=== PATIENT | male | born 1955 | race Caucasian/White ===

== ENCOUNTER 2017-08-08 12:28 | Emergency (ER) | payer MEDICARE, BC, OTHER ==
[2017-08-08 11:46] LABS: BASO # 0.1 10^3/uL (0.0-0.2); BASO % 0.9 % (0.0-1.0); EOS # 0.2 10^3/uL (0.0-0.50); EOS % 2.4 % (0.0-3.0); HEMATOCRIT 42.5 % (42.0-52.0); HEMOGLOBIN 14.8 g/dl (13.5-17.5); IMMATURE GRANULOCYTE % 0.4 % (0-3.0); LYMPH # 1.7 10^3/uL (1.5-4.5); MEAN CORPUSCULAR HEMOGLOBIN 32.3 pg (27.0-33.0); MEAN CORPUSCULAR HGB CONC 34.8 g/dl (32.0-36.5); MEAN CORPUSCULAR VOLUME 92.8 fl (80.0-96.0); MONO # 0.7 10^3/uL (0.0-0.8); MONO % 10.6 % (0.0-5.0); NEUTROPHILS # 4.3 10^3/uL (1.8-7.7); NEUTROPHILS % 61.7 % (36.0-66.0); PLATELET COUNT, AUTOMATED 180 10^3/uL (150-450); RED BLOOD COUNT 4.58 10^6/uL (4.30-6.10); RED CELL DISTRIBUTION WIDTH 12.9 % (11.5-14.5)
[2017-08-08] MEDS: LABETALOL HCL 100 MG/20 ML VIAL IV ×2 (11:55→12:20)
[2017-08-08 11:56] LABS: INR 0.93; PARTIAL THROMBOPLASTIN TIME 23.6 SECONDS (26.8-37.9); PROTHROMBIN TIME 12.6 SECONDS (12.4-14.5)
[2017-08-08 12:07] LABS: BEDSIDE GLUCOSE 122 MG/DL (80-115)
[2017-08-08 12:16] LABS: ANION GAP 6 MEQ/L (8-16); BLOOD UREA NITROGEN 9 MG/DL (7-18); CALCIUM LEVEL 9.3 MG/DL (8.8-10.2); CARBON DIOXIDE LEVEL 29 MEQ/L (21-32); CHLORIDE LEVEL 98 MEQ/L (98-107); CK-MB VALUE MASS 3.2 NG/ML (<3.6); CPK CREATINE PHOSPHOKINASE 55 U/L (39-308); CREATININE FOR GFR 0.75 MG/DL (0.70-1.30); GLOMERULAR FILTRATION RATE > 60.0 (>49); GLUCOSE, FASTING 103 MG/DL (70-100); MB/CK RELATIVE INDEX 5.81 (< OR =4); POTASSIUM SERUM 4.4 MEQ/L (3.5-5.1); SODIUM LEVEL 133 MEQ/L (136-145); TROPONIN I < 0.02 NG/ML (< 0.10)
[~2017-08-08 12:28] MED LIST: LABETALOL HCL 100 MG/20 ML VIAL As Ordered
[2017-08-08] MEDS: LORazepam 2 MG/ML VIAL (J2060) IV (13:10)
[2017-08-08] MEDS: ATENOLOL 50 MG TAB PO (14:34)
== END 2017-08-08 16:04 | disposition left against medical advice (07) ==
LOC: M ED 12:28
DX: G45.9 Transient cerebral ischemic attack, unspecified (principal); I16.0 Hypertensive urgency; Z86.73 Personal history of transient ischemic attack (TIA), and cerebral infarction without residual deficits; R94.31 Abnormal electrocardiogram [ECG] [EKG]; I25.10 Atherosclerotic heart disease of native coronary artery without angina pectoris; I25.2 Old myocardial infarction; I10 Essential (primary) hypertension; I73.9 Peripheral vascular disease, unspecified; E78.5 Hyperlipidemia, unspecified; F17.200 Nicotine dependence, unspecified, uncomplicated; Z79.82 Long term (current) use of aspirin; Z79.899 Other long term (current) drug therapy; Z79.01 Long term (current) use of anticoagulants; Z79.84 Long term (current) use of oral hypoglycemic drugs; Z95.5 Presence of coronary angioplasty implant and graft; Z98.890 Other specified postprocedural states; Z88.8 Allergy status to other drugs, medicaments and biological substances; Z88.5 Allergy status to narcotic agent
CPT/HCPCS: J2060

== ENCOUNTER → 2018-10-27 | Outpatient (CLI) | payer MEDICARE, BC, OTHER ==
[~2018-10-27] MED LIST changes: +ASCO500T PO; +ASPI-255 PO; +ASPI325T PO; +ASPI81TA85 PO; +ATEN100T PO; +BENA2CRE2 TOP; +CEPH2CAP PO; +CRES5TAB PO; +DOXA1TAB41 PO; +FIBE625T PO; +FISH1000 PO; +GLYB5TA PO; -LABETALOL HCL 100 MG/20 ML VIAL As Ordered; +LISI-538 PO; +LISI5TAB PO; +METF-877 PO; +METF500T13 PO; +NEUR300C PO; +NEUR600T PO; +NICO14DI20 TD; +NITR0.4D6 SL; +OMEP20CA4 PO; +OMEP40CA2 PO; +PLAV1TAB2 PO; +PROT1TAB2 PO; +RANI15TA PO; +RANI1TAB17 PO; +ULTR50TA PO; +ZETI10TA21 PO; +ZETI10TA30 PO
== END ==
LOC: M SMT 10:42
PROVIDERS: ATTEND Nurse Practitioner Women's Health
DX: Z12.5 Encounter for screening for malignant neoplasm of prostate (principal)
CPT/HCPCS: 36415; G0103

== ENCOUNTER 2018-12-04 12:59 | Observation (INO) | payer MEDICARE, BC, OTHER ==
[~2018-12-04] VITALS: Ht 180.3 cm; Wt 87.9 kg
[~2018-12-04 12:59] MED LIST changes: +ZETI10TA16 PO; -ZETI10TA30 PO
--- NOTE | 2018-12-04 13:34 | REP ---
CT BRAIN WITHOUT IV CONTRAST: CT brain performed without IV contrast. Comparison made with prior MRI and CT 08/08/2017. There is moderate atrophy. There is no midline shift of mass effect. Periventricular small vessel ischemic changes are again noted, chronic in nature. Old lacunar infarcts are seen in the basal ganglia, linn and left cerebellum. There is no acute intracranial hemorrhage or extra-axial fluid collection. Vascular calcifications are seen in the carotid siphons. IMPRESSION: Chronic small vessel ischemic changes and lacunar infarcts with no acute intracranial hemorrhage. Electronically Signed by Nino Rondon MD 12/06/2018 10:51 P
[2018-12-04 13:43] LABS: BASO # 0.1 10^3/uL (0.0-0.2); EOS # 0.2 10^3/uL (0.0-0.50); HEMATOCRIT 44.1 % (42.0-52.0); LYMPH # 1.6 10^3/uL (1.5-4.5); LYMPH % 22.7 % (24.0-44.0); MEAN CORPUSCULAR HEMOGLOBIN 32.5 pg (27.0-33.0); MEAN CORPUSCULAR VOLUME 95.5 fl (80.0-96.0); MONO # 0.8 10^3/uL (0.0-0.8); MONO % 10.5 % (0.0-5.0); NEUTROPHILS # 4.5 10^3/uL (1.8-7.7); NEUTROPHILS % 62.4 % (36.0-66.0); PLATELET COUNT, AUTOMATED 235 10^3/uL (150-450); RED BLOOD COUNT 4.62 10^6/uL (4.30-6.10); WHITE BLOOD COUNT 7.2 10^3/uL (4.0-10.0)
[2018-12-04 13:52] LABS: INR 0.94; PROTHROMBIN TIME 12.3 SECONDS (11.8-14.0)
[2018-12-04 13:53] LABS: PARTIAL THROMBOPLASTIN TIME 24.5 SECONDS (25.0-38.4)
[2018-12-04 14:02] LABS: BLOOD UREA NITROGEN 8 MG/DL (7-18); CALCIUM LEVEL 8.9 MG/DL (8.8-10.2); CARBON DIOXIDE LEVEL 28 MEQ/L (21-32); CHLORIDE LEVEL 95 MEQ/L (98-107); CK-MB VALUE MASS 3.1 NG/ML (<3.6); CPK CREATINE PHOSPHOKINASE 53 U/L (39-308); CREATININE FOR GFR 0.93 MG/DL (0.70-1.30); GLOMERULAR FILTRATION RATE > 60.0 (>49); GLUCOSE, FASTING 161 MG/DL (70-100); MB/CK RELATIVE INDEX 5.85 (< OR =4); POTASSIUM SERUM 4.7 MEQ/L (3.5-5.1); SODIUM LEVEL 132 MEQ/L (136-145); TROPONIN I < 0.02 NG/ML (< 0.10)
--- NOTE | 2018-12-04 14:04 | REP ---
REASON: Stroke-like symptoms. COMPARISON: 08/08/2017 The technique utilized in obtaining the radiograph has magnified the cardiac silhouette and accentuated the interstitial markings. There is cardiomegaly accentuated by technique. No acute patchy parenchymal opacities or pleural effusions have developed since the last exam. The osseous structures stable and intact. IMPRESSION: No acute cardiopulmonary disease. There appears to be cardiomegaly accentuated by technique. Electronically Signed by Michael Vargas DO 12/04/2018 02:22 P
[2018-12-04] MEDS ORDERED: ASPIRIN 325 MG TAB PO ONE (14:30)
[2018-12-04] MEDS ORDERED: FISH1000 PO (14:54)
[2018-12-04] MEDS ORDERED: GLUCOSE 4 GM CHEW TABLET PO PRN (15:15)
[2018-12-04] MEDS ORDERED: GLUCAGON FOR INJ 1 MG VIAL (J1610) SC PRN (15:15)
[2018-12-04] MEDS ORDERED: DEXTROSE 50% 50 ML SYRINGE IV PRN (15:15)
--- NOTE | 2018-12-04 15:53 | HPE ---
DATE OF ADMISSION: 12/04/2018 PRIMARY CARE PHYSICIAN: Dr. William Pierce ATTENDING PHYSICIAN: Hospitalist group. CHIEF COMPLAINT: Transient ischemic attack (TIA). HISTORY: The patient is a 63-year-old, history of stroke, who presented with probable TIA. He has expressive aphasia with unintelligible speech. It lasted approximately 15 minutes. Resolved spontaneously. In emergency room (ER), CT of the brain shows no bleed. The patient is agreeable to observation admission for further workup. He has a history of stroke. He was hospitalized for a stroke August 2014. That was a left thalamic lacunar infarct thrombotic stroke. He was seen by neurology then. His other past medical history shows type 2 diabetes for which he is on oral agents, hyperlipidemia, coronary artery disease, history of deep venous thrombosis (DVT), for which he was on warfarin until he had gross hematuria and it was discontinued, peripheral vascular disease. He is heterozygous for factor V Leiden with a single [id number] mutation noted on 08/30/2014 thrombophilia workup, which was otherwise unremarkable. Status post right leg npgfr-moo-naby amputation (per patient this initially was a service related injury and complicated by PAD). He has had four coronary artery stents placed and coronary artery bypass as well. History of gastroesophageal (GE) reflux, pancreatitis 2012, tobacco and alcohol use. ALLERGIES: WARFARIN caused excessive bleeding. STATINS have caused joint pains. CLOPIDOGREL caused intractable dyspepsia. He also lists HYDROCODONE, CAFFEINE, and TYLENOL. SURGICAL HISTORY: Carotid endarterectomy, inguinal artery repair, coronary artery bypass graft (CABG), coronary artery stents times four. SOCIAL HISTORY: He is . He is a current smoker, does not drink any alcohol currently. MEDICATIONS: - lisinopril 20 mg daily - ranitidine 150 mg daily - atenolol 100 mg daily - gabapentin 600 mg twice a day - rosuvastatin 5 mg three times a week - Zetia 10 mg daily - aspirin 81 mg daily - Plavix 75 mg daily - doxazosin 2 mg at bedtime - metformin 1000 mg at noon - omeprazole 40 mg daily - glyburide 5 mg at bedtime - fiber supplement - vitamin C supplement - fish oil supplement REVIEW OF SYSTEMS: No epistaxis, rectal bleeding, urinary bleeding, chest pain, palpitations, headache. PHYSICAL EXAM: Vital signs per flow sheet. Blood pressure was way high, 200/110 on arrival. It is now down to 175/81. General appearance: Alert, conversant, no distress. Pupils equal and react to light. Tympanic membranes (TMs) and oropharynx benign. No facial droop or weakness. No carotid bruits. Lungs: Clear. Heart: Regular rhythm. 1/6 systolic ejection murmur. Abdomen: Soft, nontender. No masses. No peripheral edema in his left leg, status post right wbmji-yjk-dedl-amputation. He has normal strength in the arms. Normal coordination. No facial droop or weakness. LABS: CBC unremarkable. CMP unremarkable. IMPRESSION: 1. Suspected transient ischemic attack. The patient consents to stay for at least observation (has history of signing out of against medical advice from ht emergency room and told me in no uncertain terms he was leaving before noon tomorrow). He has had several strokes and an MRI from 08/08/2017 showed old bilateral basal ganglia, left thalamic pontine and left cerebellar lacunar infarcts will need to work this up further. MRI has been ordered through the emergency department. I will order an echocardiogram, carotid ultrasound. Will continue his aspirin and Plavix. Neurology has been consulted. 2. Hyperlipidemia. He has been conventional doses of statins. Will continue rosuvastatin three days a week and Zetia 10 mg daily. 3. Hypertension. Blood pressure was high when he came in. Will continue his atenolol and lisinopril with permissive hypertension for now. 4. Type 2 diabetes. Hold his metformin and glyburide for now. Sliding scale insulin with coverage based on fingerstick blood sugars. 5. BPH. Continue doxazosin 2 mg nightly. 6. Risk of deep venous thrombosis heterozygous factor V Leiden status. DVT prophylaxis with Lovenox has been ordered.
--- NOTE | 2018-12-04 17:04 | REP ---
CAROTID ULTRASOUND: Real-time ultrasound evaluation and duplex Doppler interrogation of the extracranial carotid vasculature is performed. There is mild plaquing and narrowing in both carotid bulbs extending into the internal and external carotid arteries. Luminal narrowing is less than 50%. There is no evidence of hemodynamically significant stenosis of either internal carotid artery. Normal flow velocities are seen. The vertebral arteries demonstrate normal direction of flow. RIGHT LEFT Peak systolic velocity ICA 57.2 cm/s 57.6 cm/s End diastolic velocity ICA 14.6 cm/s 12.6 cm/s Peak systolic velocity CCA 56.5 cm/s 69.8 cm/s Peak systolic velocity ECA 404.9 cm/s 119.80 cm/s ICA/CCA ratio 1.01 0.83 IMPRESSION: Bilateral luminal narrowing of the internal carotid arteries less than 50%. No evidence of hemodynamically significant stenosis. Electronically Signed by Nino Rondon MD 12/04/2018 04:56 P
[2018-12-04] MEDS: HumaLOG INSULIN (NovoLOG) PER UNIT SC SCH (17:30)
--- NOTE | 2018-12-04 17:55 | REPVR ---
EXAM: MR Head Without Contrast EXAM DATE/TIME: 12/04/2018 2:44 PM CLINICAL HISTORY: 63 years old, male; Speech disturbance; Slurred speech; Additional info: TIA - prior HX of slurred speech and confusion TECHNIQUE: Imaging protocol: MR of the head without contrast. COMPARISON: MRI-Brain without Contrast 08/08/2017 1:48 PM FINDINGS: No abnormal restriction of diffusion to indicate acute CVA. Punctate remote lacunar infarct, left cerebellum, axial flare image 4. Midline structures and cerebellar tonsillar position appear normal. Ventricles, cisterns and sulci are symmetrically prominent. No intracranial mass, midline shift or abnormal extra-axial fluid. No acute intracranial hemorrhage. Moderate pattern of increased T2 and flair signal in supratentorial and linn white matter. Optic chiasm and pituitary infundibulum appear normal. Normal vascular flow voids in major intracranial arteries and dural venous sinuses. Paranasal sinuses are clear. Mastoid air cells are normally aerated. Optic globes and orbits are unremarkable. Ocular cataract surgical changes are present. IMPRESSION: No acute intracranial abnormality. Atrophy and moderate chronic microangiopathic supratentorial and linn white matter changes. Electronically signed by: Ramu Thompson On 12/04/2018 17:55:21 PM
--- NOTE | 2018-12-04 18:02 | REPVR ---
EXAM: MR Angiogram Head Without Contrast, Arteries EXAM DATE/TIME: 12/04/2018 2:44 PM CLINICAL HISTORY: 63 years old, male; Speech disturbance; Slurred speech; Additional info: TIA - prior HX of slurred speech and confusion TECHNIQUE: Imaging protocol: MR angiogram head without contrast. Exam focused on the arteries. COMPARISON: MRA BRAIN W/O CONTRAST 08/08/2017 1:37 PM FINDINGS: Anterior circulation: Normal flow signal and luminal caliber in the petrous, cavernous and supraclinoid internal carotid arteries. Normal appearance of the anterior cerebral artery branches and middle cerebral artery branches through the MCA trifurcations. No occlusion, high-grade focal stenosis or dissection. No aneurysm. Posterior circulation: Normal distal vertebral arteries, with patent normal caliber basilar artery, and normal superior cerebellar and posterior cerebral arteries. No occlusion, high-grade stenosis or aneurysm. IMPRESSION: Unremarkable MR angiogram of the [place] and intracranial vertebrobasilar system. Electronically signed by: Ramu Thompson On 12/04/2018 18:02:05 PM
[2018-12-04] MEDS: GABAPENTIN 300 MG CAP PO SCH ×2 (18:10→20:52)
[2018-12-04 18:55] VITALS: BP 160/72
[2018-12-04 20:00] VITALS: BP 177/88
[2018-12-04 20:52] VITALS: BP 177/88
[2018-12-04] MEDS ORDERED: HumaLOG INSULIN (NovoLOG) PER UNIT SC SCH (21:00)
[2018-12-04] MEDS ORDERED: DOXAZOSIN MESYLATE 1 MG TAB PO SCH (21:00)
--- NOTE | 2018-12-04 23:44 | ECGEPIP ---
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
[2018-12-04 23:59] VITALS: BP 165/74
[2018-12-05 04:00] VITALS: BP 180/90
[2018-12-05 04:47] LABS: HEMATOCRIT 40.3 % (42.0-52.0); HEMOGLOBIN 14.1 g/dl (13.5-17.5); MEAN CORPUSCULAR HEMOGLOBIN 32.8 pg (27.0-33.0); MEAN CORPUSCULAR VOLUME 93.7 fl (80.0-96.0); PLATELET COUNT, AUTOMATED 182 10^3/uL (150-450); WHITE BLOOD COUNT 6.2 10^3/uL (4.0-10.0)
[2018-12-05 05:07] LABS: BLOOD UREA NITROGEN 9 MG/DL (7-18); CALCIUM LEVEL 8.6 MG/DL (8.8-10.2); CARBON DIOXIDE LEVEL 28 MEQ/L (21-32); CHLORIDE LEVEL 99 MEQ/L (98-107); CREATININE FOR GFR 0.65 MG/DL (0.70-1.30); GLOMERULAR FILTRATION RATE > 60.0 (>49); GLUCOSE, FASTING 127 MG/DL (70-100); SODIUM LEVEL 133 MEQ/L (136-145)
[2018-12-05 06:12] VITALS: BP 170/90
[2018-12-05] MEDS: HumaLOG INSULIN (NovoLOG) PER UNIT SC SCH (07:30)
[2018-12-05] MEDS ORDERED: ENOXAPARIN 40 MG/0.4 ML SYRINGE (J1650) SC SCH (09:00)
[2018-12-05] MEDS: GABAPENTIN 300 MG CAP PO SCH (09:00)
[2018-12-05] MEDS ORDERED: PANTOPRAZOLE 40MG TAB (PROTONIX) PO SCH (09:00)
--- NOTE | 2018-12-05 09:21 | DSES ---
DATE OF ADMISSION: 12/04/2018 DATE OF DISCHARGE: PRIMARY CARE PROVIDER: Dr. William Pierce. ATTENDING PHYSICIAN: Hospitalist group. HISTORY: Khang [place] was admitted with possible transient ischemic attack (TIA). Had a vague history of inability to express himself well, lasted about 15 minutes. He was admitted for further evaluation. He has a history of stroke 08/2014. HOSPITAL COURSE: He was admitted to progressive care unit (PCU) bed. He has no arrhythmias during the course of his hospitalization. His bilateral chest sounds show no hemodynamic stenosis. An MRI scan showed no sign of acute stroke. An echocardiogram done which is pending. He is insisting on discharge today. He tried to leave against medical advice (AMA) before I could get to the floor but he consented to stay until I would see him. His blood pressure is up but he is agitated and does not want to stay any longer to try to bring this down. Risks were reviewed and accepted. LABS: Blood sugars are unremarkable. Electrolytes unremarkable. Creatinine 0.65. CBC normal. DISPOSITION: He is discharged home in stable condition, followup with Dr. William Pierce, his primary care provider in 1 week. His activity is as tolerated. He will continue his DASH diet. His medicines on discharge will be the same as he was taking before admission. He is already on Plavix 75 mg daily, aspirin 81 mg daily, atenolol 100 mg daily, doxazosin 2 mg daily at bedtime, Zetia 10 mg daily, Neurontin 600 mg three times daily, glyburide 5 mg daily at bedtime, lisinopril 20 mg daily, metformin 1000 mg twice daily, fish oil, omeprazole 40 mg daily, ranitidine 150 mg at noontime and he takes Crestor 5 mg three days a week with reduced dose due to statin intolerance. At time of dictation, the only pending lab is his echocardiogram which he can review at followup appointment with Dr. Pierce.
--- NOTE | 2018-12-05 11:23 | CR ---
DATE OF CONSULTATION: 12/04/2018 REFERRING PHYSICIAN: Dr. Lucian Soto REASON FOR CONSULTATION: Transient ischemic attack. HISTORY OF PRESENT ILLNESS: Khang Brown is a 63-year-old man with a history of stroke in the past, deep vein thrombosis (DVT), coronary artery disease, peripheral arterial disease and heterozygous or factor V Leiden who was at his baseline state of health until this morning. He stated that he was outside and felt funny. He came back inside and had trouble talking. He was unable to come up with right words. His thought that he was not acting right. He felt funny around 11:00 a.m., and his slurred speech happened around 12 o'clock. They came to [facility]. His slurred speech resolved in 30-45 minutes. He did have a severe headache at that time. There was no neck pain, back pain. He denies any seizures. He denies dysphagia, diplopia, urinary incontinence, falls or loss of consciousness. The patient states that he had a stroke and was hospitalized in August 2014 and was found to have lacunar left thalamic ischemic stroke. He had hematuria within 2 weeks after he used Coumadin for DVT. He also has right leg amputation. PAST MEDICAL HISTORY: Type 2 diabetes, dyslipidemia, coronary artery disease, DVT with heterozygous factor V Leiden mutation, peripheral arterial disease, hematuria due to warfarin, stroke, history of pancreatitis, coronary stents and bypass. ALLERGIES: COUMADIN, STATINS, HYDROCODONE, CAFFEINE, TYLENOL. PAST SURGICAL HISTORY: Right carotid endarterectomy [place] [address] Palacios, per history, coronary artery bypass graft, coronary stents. SOCIAL HISTORY: He lives with his . He is a former smoker. He denies alcohol or illicit drugs. He smoked one pack per day for 30-40 years. CURRENT MEDICATIONS: - aspirin 81 mg by mouth daily - Plavix 75 mg by mouth daily - lisinopril 20 mg by mouth daily - Zantac 150 mg by mouth daily - atenolol 100 mg by mouth daily - gabapentin 600 mg by mouth twice a day - Crestor 5 mg by mouth three times a week - Zetia 10 mg by mouth daily - doxazosin 2 mg by mouth - metformin 1000 mg by mouth at noon - omeprazole 40 mg by mouth daily - glyburide 5 mg by mouth daily REVIEW OF SYSTEMS: All systems were reviewed and found to be noncontributory except as mentioned in the history of present illness. FAMILY HISTORY: Noncontributory. PHYSICAL EXAMINATION: Blood pressure 175/81 and it was 200/110 on arrival, respiratory rate 14, pulse 70. Heart: Regular rate and rhythm. Lungs: Clear to auscultation. Abdomen: Soft, nontender, nondistended. No pedal edema. No musculoskeletal abnormalities. No rash. No signs of meningeal irritation. No tremor or dysmetria. He is status post right above-knee amputation. The patient is awake, alert, oriented to place, person and time. Normal speech comprehension and repetition. Extraoral muscles are intact. No facial weakness. Tongue and uvula are midline. 5/5 strength in all four extremities. Deep tendon reflexes are 2+ throughout except right leg. He has decreased cold pinprick vibration sensation in his left leg. No nystagmus. Recent and distant memory is intact. Visual rich are full to confrontation. DIAGNOSTIC STUDIES: MRI scan of brain showed small vessel ischemic disease of brain. Carotid ultrasound showed less than 50% bilateral carotid artery stenosis. MRA brain was unremarkable. His CBC and metabolic profile showed sodium 132, blood glucose 161, CK-MB 5.85. ASSESSMENT: 1. Suspected transient ischemic attack. 2. Hypertensive urgency with severe headache is in differential diagnosis. 3. History of stroke in 2015. 4. Coronary artery disease and peripheral arterial disease. 5. History of DVT with heterozygous factor V Leiden mutation PLAN: 1. Continue aspirin 81 mg by mouth daily and Plavix 75 mg by mouth daily. 2. Crestor 5 mg by mouth three times a week and Zetia 10 mg by mouth daily. 3. The patient will follow up with cardiology and vascular surgery. The patient had carotid endarterectomy by Dr. Palacios in 2014. 4. Keep systolic blood pressure below 130 and diastolic blood pressure below 80 for long-term blood pressure goals.
[2018-12-05] MEDS ORDERED: ASPIRIN 325 MG TAB PO SCH (12:00)
[2018-12-05] MEDS ORDERED: FAMOTIDINE 20 MG TAB PO SCH (12:00)
[2018-12-05] MEDS ORDERED: LISINOPRIL 20 MG TAB PO SCH (12:00)
[2018-12-05] MEDS ORDERED: CLOPIDOGREL 75 MG TAB PO SCH (12:00)
[2018-12-05] MEDS ORDERED: ATENOLOL 50 MG TAB PO SCH (12:00)
[2018-12-05] MEDS ORDERED: EZETIMIBE 10 MG TAB (ZETIA) PO SCH (12:00)
--- NOTE | 2018-12-05 15:04 | ECHO ---
DATE OF STUDY: 12/04/2018 REFERRING PHYSICIAN: Dr. Lucian Soto INDICATION: Transient cerebral ischemia, unspecified. HEIGHT: 180 cm WEIGHT: 91 kg 2-D MEASUREMENTS: Aortic root at sinus of Valsalva: 3.8 cm Left atrium: 4.0 cm Ventricular septum: 1.08 cm Posterior wall: 1.11 cm Left ventricle diastole: 5.1 cm Inferior vena cava: more than 50% respiratory variation DOPPLER MEASUREMENTS: Aortic valve velocity: 95.9 cm/s LVOT velocity: 86.5 cm/s Mitral E velocity: 62.1 cm/s Mitral A velocity: 80.5 cm/s Mitral deceleration time: 239 ms Pulmonary artery systolic pressure: 22 mmHg MITRAL ANNULAR TISSUE DOPPLER: E prime septal: 5.4 cm/s E prime lateral: 5.8 cm/s DESCRIPTION: Rhythm was sinus. Image quality was adequate. This is a 2-D, M-mode, color flow Doppler and pulse waved Doppler examination and included mitral annular tissue Doppler. CONCLUSIONS: 1. Normal left ventricle internal dimensions and wall thickness. Normal regional LV wall motion and wall thickening. Normal LV systolic function. Left ventricular ejection fraction (LVEF) 60% by visual estimate. Grade 1 LV diastolic dysfunction. 2. Mild aortic valve sclerosis of a 3-cusp aortic valve. No aortic regurgitation. 3. Mild mitral annular calcification. No mitral regurgitation. 4. Mild dilatation of the aortic root at the leve of sinus of Valsalva. 5. Otherwise, normal appearing echocardiogram-Doppler findings. MTDD
[2018-12-07] MEDS ORDERED: ROSUVASTATIN 10 MG TAB (CRESTOR) PO SCH (12:00)
== END 2018-12-05 09:10 | disposition home or self-care (01) ==
LOC: M ED 12:59 → M ED INP 13:00 → M PCU 18:43
PROVIDERS: ADMIT Family Medicine; ATTEND General Practice
DX: G45.9 Transient cerebral ischemic attack, unspecified (principal); E78.49 Other hyperlipidemia; I25.10 Atherosclerotic heart disease of native coronary artery without angina pectoris; Z95.5 Presence of coronary angioplasty implant and graft; Z95.1 Presence of aortocoronary bypass graft; K21.9 Gastro-esophageal reflux disease without esophagitis; F17.210 Nicotine dependence, cigarettes, uncomplicated; Z88.8 Allergy status to other drugs, medicaments and biological substances; N40.0 Benign prostatic hyperplasia without lower urinary tract symptoms; Z79.02 Long term (current) use of antithrombotics/antiplatelets; Z79.82 Long term (current) use of aspirin; Z79.899 Other long term (current) drug therapy
CPT/HCPCS: 36415; 70450; 70544; 70551; 71045; 80048; 82140; 82550; 82553; 84484; 85025; 85027; 85610; 85730; 86850; 86900; 86901; 93005; 93041; 93306; 93880; 94760; 99285; G0378

== ENCOUNTER 2018-12-06 14:10 | Emergency (ER) | payer BC, OTHER ==
[2018-12-06 14:38] LABS: BASO # 0.1 10^3/uL (0.0-0.2); BASO % 0.8 % (0.0-1.0); EOS # 0.1 10^3/uL (0.0-0.50); EOS % 1.2 % (0.0-3.0); HEMATOCRIT 42.7 % (42.0-52.0); HEMOGLOBIN 14.6 g/dl (13.5-17.5); LYMPH # 1.6 10^3/uL (1.5-4.5); LYMPH % 20.8 % (24.0-44.0); MEAN CORPUSCULAR HEMOGLOBIN 32.4 pg (27.0-33.0); MEAN CORPUSCULAR HGB CONC 34.2 g/dl (32.0-36.5); MEAN CORPUSCULAR VOLUME 94.9 fl (80.0-96.0); MONO % 13.1 % (0.0-5.0); NEUTROPHILS # 4.9 10^3/uL (1.8-7.7); NEUTROPHILS % 63.8 % (36.0-66.0); PLATELET COUNT, AUTOMATED 209 10^3/uL (150-450); WHITE BLOOD COUNT 7.7 10^3/uL (4.0-10.0)
[2018-12-06 14:57] LABS: INR 0.98; PROTHROMBIN TIME 12.7 SECONDS (11.8-14.0)
[2018-12-06 14:58] LABS: PARTIAL THROMBOPLASTIN TIME 24.1 SECONDS (25.0-38.4)
[2018-12-06 15:10] LABS: BLOOD UREA NITROGEN 13 MG/DL (7-18); CALCIUM LEVEL 8.5 MG/DL (8.8-10.2); CARBON DIOXIDE LEVEL 25 MEQ/L (21-32); CHLORIDE LEVEL 101 MEQ/L (98-107); CK-MB VALUE MASS 2.1 NG/ML (<3.6); CPK CREATINE PHOSPHOKINASE 59 U/L (39-308); CREATININE FOR GFR 0.98 MG/DL (0.70-1.30); GLOMERULAR FILTRATION RATE > 60.0 (>49); GLUCOSE, FASTING 136 MG/DL (70-100); MB/CK RELATIVE INDEX 3.56 (< OR =4); POTASSIUM SERUM 4.2 MEQ/L (3.5-5.1); SODIUM LEVEL 135 MEQ/L (136-145); TROPONIN I < 0.02 NG/ML (< 0.10)
[2018-12-06] MEDS ORDERED: DILUENT IV ONE (15:15)
[2018-12-06] MEDS ORDERED: ALTEPLASE 100MG INJ (J2997) IV ONE (15:15)
[2018-12-06] MEDS ORDERED: ALTEPLASE RECOMBINANT IV ONE (15:15)
[2018-12-06] MEDS ORDERED: NS 1,000 ML IV SCH (15:25)
[2018-12-06 16:07] VITALS: BP 192/90
[2018-12-06] MEDS ORDERED: LABETALOL HCL 100 MG/20 ML VIAL As Ordered ONE (16:11)
[2018-12-06] MEDS ORDERED: LABETALOL HCL 100 MG/20 ML VIAL IV STA (16:12)
--- NOTE | 2018-12-07 20:07 | ECGEPIP ---
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
--- NOTE | 2018-12-08 08:28 | REP ---
While chest, 02:49 p.m., single AP view with the patient upright: Comparison is a 2018. Lung rich are clear. Cardiac size is enlarged, unchanged. The juanita, mediastinum, skeletal structures are unremarkable. Impression: There are no acute cardiopulmonary findings. There is cardiomegaly, unchanged. Electronically Signed by Nino Wilder MD 12/06/2018 03:13 P
--- NOTE | 2018-12-08 08:28 | REP ---
CT of the brain without IV contrast: Comparison is a 2018. There is no hemorrhage. There is no edema, mass effect or midline shift. There is diffuse cortical atrophy. This is unchanged. The cortical stripe is unremarkable. There is opacification of a few ethmoid sinus air cells, compatible with sinusitis. Impression: There is no hemorrhage, acute infarct or mass. Diffuse cortical atrophy. Ethmoid sinusitis. Electronically Signed by Nino Wilder MD 12/06/2018 02:58 P
== END 2018-12-06 16:22 | disposition short-term general hospital (02) ==
LOC: M ED 14:10
DX: I63.9 Cerebral infarction, unspecified (principal); E11.51 Type 2 diabetes mellitus with diabetic peripheral angiopathy without gangrene; I25.10 Atherosclerotic heart disease of native coronary artery without angina pectoris; E78.5 Hyperlipidemia, unspecified; I73.9 Peripheral vascular disease, unspecified; Z95.1 Presence of aortocoronary bypass graft; Z95.5 Presence of coronary angioplasty implant and graft; Z79.899 Other long term (current) drug therapy; Z79.84 Long term (current) use of oral hypoglycemic drugs; Z79.82 Long term (current) use of aspirin; Z79.02 Long term (current) use of antithrombotics/antiplatelets; Z88.5 Allergy status to narcotic agent; Z88.8 Allergy status to other drugs, medicaments and biological substances; Z91.018 Allergy to other foods; F17.210 Nicotine dependence, cigarettes, uncomplicated
CPT/HCPCS: 70450; 71045; 80048; 82550; 82553; 84484; 85025; 85610; 85730; 86850; 86900; 86901; 93005; 93041; 94760; 96374; 96375; 99285; J2997

== ENCOUNTER → 2019-10-27 | Outpatient (CLI) | payer BC, OTHER ==
[~2019-10-27] MED LIST changes: +ACET1TAB55 PO; +ASPI81CH33 PO; +ASPI81CH8 PO; -ASPI81TA85 PO; +ASPI81TA86 PO; +ATOR80TA59 PO; +BACL10TA2 PO; +CLOP75TA2 PO; +EZET10TA21 PO; +FLOM0.4C39 PO; +FLUO20CA20 PO; +FLUO20CA22 PO; +FURO20TA2 PO; +GABA600T4 PO; +GLUC500T PO; +KEPP1TAB PO; +KLOR10TA76 PO; +LISI40TA PO; +METO5TAB2 PO; +OMEP1CAP73 PO; -OMEP20CA4 PO; +OMEP40CA97 PO; +OXYB-54 PO; +POTA10TA17 PO; +POTA20TA6 PO; +RAME8TAB2 PO; +ROZE8TAB16 PO; +SLOWTAB2 PO; +TAMS1CAP17 PO; +THIA100T7 PO; +THIA100TA PO; +TUMS750C5 PO; +VITMTA PO
== END ==
LOC: M LABSMTC 10:51
PROVIDERS: ATTEND Surgery Vascular Surgery
DX: Z11.59 Encounter for screening for other viral diseases (principal)
CPT/HCPCS: C9803; U0003

== ENCOUNTER 2019-11-25 16:30 | Inpatient (IN) | payer MEDICARE, BC, OTHER ==
[~2019-11-25 16:30] MED LIST changes: -ACET1TAB55 PO; -ASPI81CH33 PO; -ASPI81CH8 PO; -ATOR80TA59 PO; -BACL10TA2 PO; -CLOP75TA2 PO; -EZET10TA21 PO; -FLOM0.4C39 PO; -FLUO20CA20 PO; -FLUO20CA22 PO; -FURO20TA2 PO; -GABA600T4 PO; -GLUC500T PO; -KEPP1TAB PO; -KLOR10TA76 PO; -LISI40TA PO; -METO5TAB2 PO; -OXYB-54 PO; -POTA10TA17 PO; -POTA20TA6 PO; -RAME8TAB2 PO; -ROZE8TAB16 PO; -SLOWTAB2 PO; -TAMS1CAP17 PO; -THIA100T7 PO; -THIA100TA PO; -TUMS750C5 PO; -VITMTA PO
[2019-11-25] MEDS ORDERED: HumaLOG INSULIN (NovoLOG) PER UNIT As Ordered ONE (17:28)
[2019-11-25] MEDS ORDERED: ACETAMINOPHEN 500 MG TAB As Ordered ONE (21:28)
[2019-11-25] MEDS ORDERED: GABAPENTIN 300 MG CAP As Ordered ONE (21:31)
[2019-11-25] MEDS ORDERED: DOCUSATE SODIUM 100 MG CAP As Ordered ONE (21:31)
[2019-11-25] MEDS ORDERED: SENNA 8.6 MG TAB (SENOKOT) As Ordered ONE (21:31)
[2019-11-25] MEDS ORDERED: guaiFENesin 200 MG TAB As Ordered ONE (21:31)
[2019-11-25] MEDS ORDERED: LEVEMIR (INSULIN DETEMIR) 1 UNITS/0.01ML As Ordered ONE (21:33)
[2019-11-25] MEDS ORDERED: oxyCODONE 5MG TAB As Ordered ONE ×2 (21:47→21:51)
[2019-11-25] MEDS ORDERED: traZODone 25MG PER 1/2 TABLET As Ordered ONE (21:48)
[2019-11-26] MEDS ORDERED: oxyCODONE 5MG TAB As Ordered ONE ×3 (02:35→20:25)
[2019-11-26] MEDS ORDERED: HumaLOG INSULIN (NovoLOG) PER UNIT As Ordered ONE ×3 (07:30→17:31)
[2019-11-26] MEDS ORDERED: ATORVASTATIN 20 MG TAB As Ordered ONE (08:09)
[2019-11-26] MEDS ORDERED: ENOXAPARIN 40MG/0.4ML SYRINGE (J1650 PER 10MG) As Ordered ONE (08:10)
[2019-11-26] MEDS ORDERED: MULTIVITAMINS/MINERALS THERAP 1 TAB As Ordered ONE (08:14)
[2019-11-26] MEDS ORDERED: atenoloL 50 MG TAB As Ordered ONE (08:15)
[2019-11-26] MEDS ORDERED: THIAMINE 100 MG TAB As Ordered ONE (08:15)
[2019-11-26] MEDS ORDERED: FLUoxetine 20 MG CAP As Ordered ONE (08:20)
[2019-11-26] MEDS ORDERED: GABAPENTIN 300 MG CAP As Ordered ONE ×2 (08:20→20:13)
[2019-11-26] MEDS ORDERED: DOCUSATE SODIUM 100 MG CAP As Ordered ONE ×2 (08:20→20:13)
[2019-11-26] MEDS ORDERED: guaiFENesin 200 MG TAB As Ordered ONE ×3 (08:20→20:13)
[2019-11-26] MEDS ORDERED: PANTOPRAZOLE 40MG TAB (PROTONIX) As Ordered ONE (08:21)
[2019-11-26] MEDS ORDERED: lisinopriL 40 MG TAB As Ordered ONE (08:21)
[2019-11-26] MEDS ORDERED: ACETAMINOPHEN 500 MG TAB As Ordered ONE ×3 (08:30→20:11)
[2019-11-26] MEDS ORDERED: CLOPIDOGREL 75 MG TAB As Ordered ONE (08:30)
[2019-11-26] MEDS ORDERED: POTASSIUM CHLORIDE 10 MEQ SR TABLET As Ordered ONE (14:33)
[2019-11-26] MEDS ORDERED: METOCLOPRAMIDE 10 MG TAB As Ordered ONE (15:53)
[2019-11-26] MEDS ORDERED: NICOTINE 21MG/24HR 1 EA TRANSDERMAL As Ordered ONE (15:53)
[2019-11-26] MEDS ORDERED: traZODone 25MG PER 1/2 TABLET As Ordered ONE (20:13)
[2019-11-26] MEDS ORDERED: SENNA 8.6 MG TAB (SENOKOT) As Ordered ONE (20:14)
[2019-11-26] MEDS ORDERED: LEVEMIR (INSULIN DETEMIR) 1 UNITS/0.01ML As Ordered ONE (20:15)
[2019-11-27] MEDS ORDERED: oxyCODONE 5MG TAB As Ordered ONE ×2 (03:44→17:46)
[2019-11-27] MEDS ORDERED: ACETAMINOPHEN 500 MG TAB As Ordered ONE ×3 (08:51→20:20)
[2019-11-27] MEDS ORDERED: HumaLOG INSULIN (NovoLOG) PER UNIT As Ordered ONE ×4 (08:51→21:47)
[2019-11-27] MEDS ORDERED: atenoloL 50 MG TAB As Ordered ONE (08:55)
[2019-11-27] MEDS ORDERED: ENOXAPARIN 40MG/0.4ML SYRINGE (J1650 PER 10MG) As Ordered ONE (08:55)
[2019-11-27] MEDS ORDERED: lisinopriL 40 MG TAB As Ordered ONE (08:55)
[2019-11-27] MEDS ORDERED: MULTIVITAMINS/MINERALS THERAP 1 TAB As Ordered ONE (08:55)
[2019-11-27] MEDS ORDERED: FLUoxetine 20 MG CAP As Ordered ONE (09:00)
[2019-11-27] MEDS ORDERED: GABAPENTIN 300 MG CAP As Ordered ONE ×3 (09:00→21:44)
[2019-11-27] MEDS ORDERED: PANTOPRAZOLE 40MG TAB (PROTONIX) As Ordered ONE (09:00)
[2019-11-27] MEDS ORDERED: guaiFENesin 200 MG TAB As Ordered ONE ×3 (09:00→21:44)
[2019-11-27] MEDS ORDERED: DOCUSATE SODIUM 100 MG CAP As Ordered ONE ×2 (09:00→21:45)
[2019-11-27] MEDS ORDERED: THIAMINE 100 MG TAB As Ordered ONE (09:01)
[2019-11-27] MEDS ORDERED: NICOTINE 21MG/24HR 1 EA TRANSDERMAL As Ordered ONE (09:01)
[2019-11-27] MEDS ORDERED: ASPIRIN 81 MG ENTERIC TAB As Ordered ONE (09:10)
[2019-11-27] MEDS ORDERED: FUROSEMIDE 20 MG TAB As Ordered ONE (10:42)
[2019-11-27] MEDS ORDERED: CLOPIDOGREL 75 MG TAB As Ordered ONE (10:42)
[2019-11-27] MEDS ORDERED: METOCLOPRAMIDE 10 MG TAB As Ordered ONE (11:50)
[2019-11-27] MEDS ORDERED: METOCLOPRAMIDE 5 MG TAB As Ordered ONE (17:42)
[2019-11-27] MEDS ORDERED: traZODone 25MG PER 1/2 TABLET As Ordered ONE (21:45)
[2019-11-27] MEDS ORDERED: SENNA 8.6 MG TAB (SENOKOT) As Ordered ONE (21:45)
[2019-11-27] MEDS ORDERED: LEVEMIR (INSULIN DETEMIR) 1 UNITS/0.01ML As Ordered ONE (21:46)
[2019-11-28] MEDS ORDERED: guaiFENesin 200 MG TAB As Ordered ONE ×2 (06:11→20:05)
[2019-11-28] MEDS ORDERED: GABAPENTIN 300 MG CAP As Ordered ONE ×3 (06:12→20:06)
[2019-11-28] MEDS ORDERED: CLOPIDOGREL 75 MG TAB As Ordered ONE (06:12)
[2019-11-28] MEDS ORDERED: MULTIVITAMINS/MINERALS THERAP 1 TAB As Ordered ONE (06:12)
[2019-11-28] MEDS ORDERED: FLUoxetine 20 MG CAP As Ordered ONE (06:12)
[2019-11-28] MEDS ORDERED: ASPIRIN 81 MG CHEW TABLET As Ordered ONE (06:12)
[2019-11-28] MEDS ORDERED: lisinopriL 40 MG TAB As Ordered ONE (06:13)
[2019-11-28] MEDS ORDERED: NICOTINE 21MG/24HR 1 EA TRANSDERMAL As Ordered ONE (06:13)
[2019-11-28] MEDS ORDERED: PANTOPRAZOLE 40MG TAB (PROTONIX) As Ordered ONE (06:13)
[2019-11-28] MEDS ORDERED: ATORVASTATIN 20 MG TAB As Ordered ONE (06:13)
[2019-11-28] MEDS ORDERED: ACETAMINOPHEN 500 MG TAB As Ordered ONE ×3 (06:13→20:06)
[2019-11-28] MEDS ORDERED: ENOXAPARIN 40MG/0.4ML SYRINGE (J1650 PER 10MG) As Ordered ONE (06:13)
[2019-11-28] MEDS ORDERED: THIAMINE 100 MG TAB As Ordered ONE (06:13)
[2019-11-28] MEDS ORDERED: DOCUSATE SODIUM 100 MG CAP As Ordered ONE (06:13)
[2019-11-28] MEDS ORDERED: atenoloL 50 MG TAB As Ordered ONE (06:14)
[2019-11-28] MEDS ORDERED: METOCLOPRAMIDE 5 MG TAB As Ordered ONE ×3 (06:14→16:57)
[2019-11-28] MEDS ORDERED: FUROSEMIDE 20 MG TAB As Ordered ONE (06:14)
[2019-11-28] MEDS ORDERED: HumaLOG INSULIN (NovoLOG) PER UNIT As Ordered ONE ×2 (12:05→16:57)
[2019-11-28] MEDS ORDERED: traZODone 25MG PER 1/2 TABLET As Ordered ONE (20:06)
[2019-11-28] MEDS ORDERED: LEVEMIR (INSULIN DETEMIR) 1 UNITS/0.01ML As Ordered ONE (20:07)
[2019-11-29] MEDS ORDERED: traZODone 25MG PER 1/2 TABLET As Ordered ONE (00:37)
[2019-11-29] MEDS ORDERED: oxyCODONE 5MG TAB As Ordered ONE ×3 (00:37→09:53)
[2019-11-29] MEDS ORDERED: FLUoxetine 20 MG CAP As Ordered ONE (07:57)
[2019-11-29] MEDS ORDERED: CLOPIDOGREL 75 MG TAB As Ordered ONE (07:57)
[2019-11-29] MEDS ORDERED: MULTIVITAMINS/MINERALS THERAP 1 TAB As Ordered ONE (07:57)
[2019-11-29] MEDS ORDERED: GABAPENTIN 300 MG CAP As Ordered ONE ×3 (07:57→20:10)
[2019-11-29] MEDS ORDERED: guaiFENesin 200 MG TAB As Ordered ONE ×3 (07:57→20:10)
[2019-11-29] MEDS ORDERED: ATORVASTATIN 20 MG TAB As Ordered ONE (07:58)
[2019-11-29] MEDS ORDERED: HumaLOG INSULIN (NovoLOG) PER UNIT As Ordered ONE ×3 (07:58→17:04)
[2019-11-29] MEDS ORDERED: ACETAMINOPHEN 500 MG TAB As Ordered ONE ×3 (07:58→20:06)
[2019-11-29] MEDS ORDERED: PANTOPRAZOLE 40MG TAB (PROTONIX) As Ordered ONE (07:59)
[2019-11-29] MEDS ORDERED: ENOXAPARIN 40MG/0.4ML SYRINGE (J1650 PER 10MG) As Ordered ONE (07:59)
[2019-11-29] MEDS ORDERED: lisinopriL 40 MG TAB As Ordered ONE (07:59)
[2019-11-29] MEDS ORDERED: NICOTINE 21MG/24HR 1 EA TRANSDERMAL As Ordered ONE (07:59)
[2019-11-29] MEDS ORDERED: ASPIRIN 81 MG ENTERIC TAB As Ordered ONE (07:59)
[2019-11-29] MEDS ORDERED: THIAMINE 100 MG TAB As Ordered ONE (07:59)
[2019-11-29] MEDS ORDERED: FUROSEMIDE 20 MG TAB As Ordered ONE (08:00)
[2019-11-29] MEDS ORDERED: METOCLOPRAMIDE 10 MG TAB As Ordered ONE ×3 (08:00→17:05)
[2019-11-29] MEDS ORDERED: atenoloL 50 MG TAB As Ordered ONE (08:00)
[2019-11-29] MEDS ORDERED: oxyBUTYnin *DITROPAN XL* 5 MG TABCR ONE ×3 (09:00→13:00)
[2019-11-29] MEDS ORDERED: DOXAZOSIN MESYLATE 1 MG TAB ONE ×3 (09:00→13:00)
[2019-11-29] MEDS ORDERED: EZETIMIBE 10 MG TAB (ZETIA) ONE ×3 (09:00→13:00)
[2019-11-29] MEDS ORDERED: TAMSULOSIN 0.4 MG CAP As Ordered ONE (10:49)
[2019-11-29] MEDS ORDERED: LEVEMIR (INSULIN DETEMIR) 1 UNITS/0.01ML As Ordered ONE (20:08)
[2019-11-29] MEDS ORDERED: DOCUSATE SODIUM 100 MG CAP As Ordered ONE (20:10)
[2019-11-29] MEDS ORDERED: RAMELTEON 8 MG TAB (ROZEREM) As Ordered ONE (20:11)
[2019-11-29] MEDS ORDERED: SENNA 8.6 MG TAB (SENOKOT) As Ordered ONE (20:11)
[2019-11-30] MEDS ORDERED: oxyCODONE 5MG TAB As Ordered ONE ×2 (03:34→07:43)
[2019-11-30] MEDS ORDERED: MULTIVITAMINS/MINERALS THERAP 1 TAB As Ordered ONE (07:41)
[2019-11-30] MEDS ORDERED: guaiFENesin 200 MG TAB As Ordered ONE ×2 (07:41→17:09)
[2019-11-30] MEDS ORDERED: ACETAMINOPHEN 500 MG TAB As Ordered ONE (07:42)
[2019-11-30] MEDS ORDERED: FLUoxetine 20 MG CAP As Ordered ONE (07:42)
[2019-11-30] MEDS ORDERED: CLOPIDOGREL 75 MG TAB As Ordered ONE (07:42)
[2019-11-30] MEDS ORDERED: GABAPENTIN 300 MG CAP As Ordered ONE ×2 (07:42→17:09)
[2019-11-30] MEDS ORDERED: ATORVASTATIN 20 MG TAB As Ordered ONE (07:42)
[2019-11-30] MEDS ORDERED: ASPIRIN 81 MG CHEW TABLET As Ordered ONE (07:42)
[2019-11-30] MEDS ORDERED: HumaLOG INSULIN (NovoLOG) PER UNIT As Ordered ONE ×3 (07:43→17:10)
[2019-11-30] MEDS ORDERED: NICOTINE 21MG/24HR 1 EA TRANSDERMAL As Ordered ONE (07:44)
[2019-11-30] MEDS ORDERED: PANTOPRAZOLE 40MG TAB (PROTONIX) As Ordered ONE (07:44)
[2019-11-30] MEDS ORDERED: THIAMINE 100 MG TAB As Ordered ONE (07:44)
[2019-11-30] MEDS ORDERED: lisinopriL 40 MG TAB As Ordered ONE (07:44)
[2019-11-30] MEDS ORDERED: ENOXAPARIN 40MG/0.4ML SYRINGE (J1650 PER 10MG) As Ordered ONE (07:44)
[2019-11-30] MEDS ORDERED: TAMSULOSIN 0.4 MG CAP As Ordered ONE ×2 (07:45→12:03)
[2019-11-30] MEDS ORDERED: atenoloL 50 MG TAB As Ordered ONE (07:45)
[2019-11-30] MEDS ORDERED: METOCLOPRAMIDE 10 MG TAB As Ordered ONE ×3 (07:45→17:11)
[2019-11-30] MEDS ORDERED: FUROSEMIDE 20 MG TAB As Ordered ONE (07:45)
[2019-11-30] MEDS ORDERED: ASPI81CH33 PO (09:18)
[2019-11-30] MEDS ORDERED: VITMTA PO (09:22)
[2019-11-30] MEDS ORDERED: LISI40TA PO (09:22)
[2019-11-30] MEDS ORDERED: OXYB-54 PO (09:22)
[2019-11-30] MEDS ORDERED: ATOR80TA59 PO (09:22)
[2019-11-30] MEDS ORDERED: THIA100T7 PO (09:22)
[2019-11-30] MEDS ORDERED: GLUCOSE 4GM CHEW TABLET PO PRN (09:30)
[2019-11-30] MEDS ORDERED: GLUCAGON INJ 1MG VIAL SC PRN (09:30)
[2019-11-30] MEDS ORDERED: DEXTROSE 50% 50 ML SYRINGE IV PRN (09:30)
[2019-11-30] MEDS: HumaLOG INSULIN (NovoLOG) PER UNIT SC SCH ×3 (12:00→20:01)
[2019-11-30] MEDS: IPRATROPIUM 0.5MG/ALBUTEROL 2.5MG INH SOL UD 3ML (DUONEB) INH SCH (16:00)
[2019-11-30] MEDS ORDERED: ACETAMINOPHEN 325 MG TAB As Ordered ONE (17:11)
[2019-11-30 20:00] VITALS: BP 128/71
[2019-11-30] MEDS: LEVEMIR (INSULIN DETEMIR) 1 UNITS/0.01ML SC SCH (20:06)
[2019-11-30] MEDS: REMEDY PHYTOPLEX Z-GUARD PASTE 113GM TUBE (FROM STOREROOM PRODUCT) TOP SCH (20:07)
[2019-11-30] MEDS: DOCUSATE SODIUM 100 MG CAP PO SCH (20:07)
[2019-11-30] MEDS: ACETAMINOPHEN 325 MG TAB PO SCH (20:07)
[2019-11-30] MEDS: GABAPENTIN 300 MG CAP PO SCH (20:07)
[2019-11-30] MEDS: RAMELTEON 8 MG TAB (ROZEREM) PO SCH (20:07)
[2019-11-30] MEDS: guaiFENesin 200 MG TAB PO SCH (20:07)
[2019-11-30] MEDS: SENNA 8.6 MG TAB (SENOKOT) PO SCH (20:07)
[2019-11-30] MEDS ORDERED: ACETAMINOPHEN 500 MG TAB PO SCH (22:00)
[2019-11-30 22:03] LABS: APPEARANCE, URINE CLEAR (CLEAR); BACTERIA, URINE AUTO NEGATIVE (NEGATIVE); BILIRUBIN, URINE AUTO NEGATIVE (NEGATIVE); BLOOD, URINE BLOOD 2+ (NEGATIVE); COLOR, URINE YELLOW (YELLOW); GLUCOSE, URINE (UA) AUTO NEGATIVE (NEGATIVE); KETONE, URINE AUTO NEGATIVE (NEGATIVE); LEUKOCYTE ESTERASE, URINE AUTO NEGATIVE (NEGATIVE); MUCUS, URINE SMALL (NEGATIVE); NITRITE, URINE AUTO NEGATIVE (NEGATIVE); PROTEIN, URINE AUTO NEGATIVE (NEGATIVE); RBC, URINE AUTO 30 /HPF (0-3); SQUAMOUS EPITHELIAL CELL UR AU 0 /HPF (0-6); UROBILINOGEN, URINE AUTO 0.2 mg/dL (0.0-2.0); WBC, URINE AUTO 2 /HPF (0-3)
[2019-12-01] MEDS: oxyCODONE 5MG TAB PO PRN (00:15)
[2019-12-01 06:00] VITALS: BP 150/72
[2019-12-01] MEDS: METOCLOPRAMIDE 5 MG TAB PO SCH ×3 (06:42→16:53)
[2019-12-01] MEDS: IPRATROPIUM 0.5MG/ALBUTEROL 2.5MG INH SOL UD 3ML (DUONEB) INH SCH ×4 (08:00→19:30)
[2019-12-01] MEDS: NICOTINE 21MG/24HR 1 EA TRANSDERMAL TD SCH (08:11)
[2019-12-01] MEDS: ATORVASTATIN 20 MG TAB PO SCH (08:12)
[2019-12-01] MEDS: ENOXAPARIN 40MG/0.4ML SYRINGE (J1650 PER 10MG) SC SCH (08:12)
[2019-12-01] MEDS: HumaLOG INSULIN (NovoLOG) PER UNIT SC SCH ×4 (08:12→21:00)
[2019-12-01] MEDS: GABAPENTIN 300 MG CAP PO SCH ×3 (08:13→21:07)
[2019-12-01] MEDS: ASPIRIN 81 MG CHEW TABLET PO SCH (08:13)
[2019-12-01] MEDS: lisinopriL 40 MG TAB PO SCH (08:13)
[2019-12-01] MEDS: FLUoxetine 20 MG CAP PO SCH (08:13)
[2019-12-01] MEDS: THIAMINE 100 MG TAB PO SCH (08:13)
[2019-12-01] MEDS: PANTOPRAZOLE 40MG TAB (PROTONIX) PO SCH (08:13)
[2019-12-01] MEDS: DOXAZOSIN MESYLATE 1 MG TAB PO SCH (08:13)
[2019-12-01] MEDS: TAMSULOSIN 0.4 MG CAP PO SCH (08:13)
[2019-12-01] MEDS: FUROSEMIDE 20 MG TAB PO SCH (08:14)
[2019-12-01] MEDS: MULTIVITAMINS/MINERALS THERAP 1 TAB PO SCH (08:14)
[2019-12-01] MEDS: CLOPIDOGREL 75 MG TAB PO SCH (08:14)
[2019-12-01] MEDS: ACETAMINOPHEN 325 MG TAB PO SCH ×2 (08:14→12:07)
[2019-12-01] MEDS: guaiFENesin 200 MG TAB PO SCH ×3 (08:14→21:07)
[2019-12-01] MEDS: atenoloL 50 MG TAB PO SCH (08:15)
[2019-12-01] MEDS: EZETIMIBE 10 MG TAB (ZETIA) PO SCH (08:15)
[2019-12-01] MEDS: REMEDY PHYTOPLEX Z-GUARD PASTE 113GM TUBE (FROM STOREROOM PRODUCT) TOP SCH ×3 (08:16→21:08)
[2019-12-01] MEDS: DOCUSATE SODIUM 100 MG CAP PO SCH ×2 (08:16→21:00)
[2019-12-01] MEDS ORDERED: oxyBUTYnin *DITROPAN XL* 5 MG TABCR PO SCH (09:00)
[2019-12-01 14:00] VITALS: BP 118/59
[2019-12-01] MEDS: ACETAMINOPHEN TAB 650MG DOSE (2X325MG) PO PRN ×2 (16:53→21:07)
[2019-12-01 20:00] VITALS: BP 187/81
[2019-12-01] MEDS: SENNA 8.6 MG TAB (SENOKOT) PO SCH (21:00)
[2019-12-01] MEDS: RAMELTEON 8 MG TAB (ROZEREM) PO SCH (21:07)
[2019-12-01] MEDS: LEVEMIR (INSULIN DETEMIR) 1 UNITS/0.01ML SC SCH (21:08)
[2019-12-01] MEDS: LIDOCAINE 5% (LIDODERM) PATCH TD SCH (21:08)
[2019-12-02] MEDS: ACETAMINOPHEN TAB 650MG DOSE (2X325MG) PO PRN ×3 (01:30→20:50)
[2019-12-02 02:00] VITALS: BP 148/84
[2019-12-02 06:00] VITALS: BP 150/82
[2019-12-02] MEDS: METOCLOPRAMIDE 5 MG TAB PO SCH ×3 (06:22→17:24)
[2019-12-02] MEDS: IPRATROPIUM 0.5MG/ALBUTEROL 2.5MG INH SOL UD 3ML (DUONEB) INH SCH ×3 (07:47→22:44)
[2019-12-02] MEDS: HumaLOG INSULIN (NovoLOG) PER UNIT SC SCH ×4 (08:15→20:41)
[2019-12-02] MEDS: THIAMINE 100 MG TAB PO SCH (08:15)
[2019-12-02] MEDS: TAMSULOSIN 0.4 MG CAP PO SCH (08:15)
[2019-12-02] MEDS: guaiFENesin 200 MG TAB PO SCH ×3 (08:15→20:49)
[2019-12-02] MEDS: NICOTINE 21MG/24HR 1 EA TRANSDERMAL TD SCH (08:16)
[2019-12-02] MEDS: ENOXAPARIN 40MG/0.4ML SYRINGE (J1650 PER 10MG) SC SCH (08:16)
[2019-12-02] MEDS: ASPIRIN 81 MG CHEW TABLET PO SCH (08:17)
[2019-12-02] MEDS: DOXAZOSIN MESYLATE 1 MG TAB PO SCH (08:17)
[2019-12-02] MEDS: MULTIVITAMINS/MINERALS THERAP 1 TAB PO SCH (08:17)
[2019-12-02] MEDS: lisinopriL 40 MG TAB PO SCH (08:17)
[2019-12-02] MEDS: GABAPENTIN 300 MG CAP PO SCH ×3 (08:17→20:49)
[2019-12-02] MEDS: FLUoxetine 20 MG CAP PO SCH (08:17)
[2019-12-02] MEDS: FUROSEMIDE 20 MG TAB PO SCH (08:17)
[2019-12-02] MEDS: CLOPIDOGREL 75 MG TAB PO SCH (08:18)
[2019-12-02] MEDS: PANTOPRAZOLE 40MG TAB (PROTONIX) PO SCH (08:18)
[2019-12-02] MEDS: ATORVASTATIN 20 MG TAB PO SCH (08:18)
[2019-12-02] MEDS: atenoloL 50 MG TAB PO SCH (08:19)
[2019-12-02] MEDS: EZETIMIBE 10 MG TAB (ZETIA) PO SCH (08:23)
[2019-12-02] MEDS: REMEDY PHYTOPLEX Z-GUARD PASTE 113GM TUBE (FROM STOREROOM PRODUCT) TOP SCH ×3 (08:25→20:50)
[2019-12-02] MEDS: **NOTE PATIENT COMMENT** MISC XX SCH (09:00)
[2019-12-02] MEDS: DOCUSATE SODIUM 100 MG CAP PO SCH ×2 (09:00→20:50)
[2019-12-02 09:23] VITALS: BP 150/82
[2019-12-02 14:00] VITALS: BP 112/53
[2019-12-02 20:00] VITALS: BP 160/70
[2019-12-02] MEDS: RAMELTEON 8 MG TAB (ROZEREM) PO SCH (20:49)
[2019-12-02] MEDS: LEVEMIR (INSULIN DETEMIR) 1 UNITS/0.01ML SC SCH (20:49)
[2019-12-02] MEDS: LIDOCAINE 5% (LIDODERM) PATCH TD SCH (20:50)
[2019-12-02] MEDS: SENNA 8.6 MG TAB (SENOKOT) PO SCH (20:50)
[2019-12-03] MEDS: ACETAMINOPHEN TAB 650MG DOSE (2X325MG) PO PRN ×5 (00:56→21:00)
[2019-12-03] MEDS: METOCLOPRAMIDE 5 MG TAB PO SCH ×3 (06:14→17:16)
[2019-12-03 06:17] VITALS: BP 180/88
[2019-12-03] MEDS: IPRATROPIUM 0.5MG/ALBUTEROL 2.5MG INH SOL UD 3ML (DUONEB) INH SCH ×2 (07:49→14:40)
[2019-12-03] MEDS: DOCUSATE SODIUM 100 MG CAP PO SCH ×2 (07:54→20:49)
[2019-12-03 08:15] VITALS: BP 161/80
[2019-12-03 08:36] LABS: BASO % 0.6 % (0.0-1.0); EOS # 0.3 10^3/uL (0.0-0.5); EOS % 4.6 % (0.0-3.0); HEMOGLOBIN 8.4 g/dl (13.5-17.5); LYMPH # 1.3 10^3/uL (1.5-5.0); LYMPH % 20.7 % (24.0-44.0); MEAN CORPUSCULAR HEMOGLOBIN 29.9 pg (27.0-33.0); MEAN CORPUSCULAR HGB CONC 32.3 g/dl (32.0-36.5); MEAN CORPUSCULAR VOLUME 92.5 fl (80.0-96.0); MONO # 0.6 10^3/uL (0.0-0.8); MONO % 9.3 % (0.0-5.0); NEUTROPHILS % 63.9 % (36.0-66.0); PLATELET COUNT, AUTOMATED 445 10^3/uL (150-450); RED BLOOD COUNT 2.81 10^6/uL (4.30-6.10); WHITE BLOOD COUNT 6.3 10^3/uL (4.0-10.0)
[2019-12-03] MEDS: THIAMINE 100 MG TAB PO SCH (08:44)
[2019-12-03] MEDS: FUROSEMIDE 20 MG TAB PO SCH (08:44)
[2019-12-03] MEDS: lisinopriL 40 MG TAB PO SCH (08:44)
[2019-12-03] MEDS: TAMSULOSIN 0.4 MG CAP PO SCH (08:44)
[2019-12-03] MEDS: atenoloL 50 MG TAB PO SCH (08:45)
[2019-12-03] MEDS: EZETIMIBE 10 MG TAB (ZETIA) PO SCH (08:46)
[2019-12-03] MEDS: GABAPENTIN 300 MG CAP PO SCH ×3 (08:46→21:00)
[2019-12-03] MEDS: FLUoxetine 20 MG CAP PO SCH (08:46)
[2019-12-03] MEDS: DOXAZOSIN MESYLATE 1 MG TAB PO SCH (08:46)
[2019-12-03] MEDS: NICOTINE 21MG/24HR 1 EA TRANSDERMAL TD SCH (08:46)
[2019-12-03] MEDS: PANTOPRAZOLE 40MG TAB (PROTONIX) PO SCH (08:46)
[2019-12-03] MEDS: CLOPIDOGREL 75 MG TAB PO SCH (08:46)
[2019-12-03] MEDS: ASPIRIN 81 MG CHEW TABLET PO SCH (08:46)
[2019-12-03] MEDS: guaiFENesin 200 MG TAB PO SCH ×3 (08:46→20:59)
[2019-12-03] MEDS: ENOXAPARIN 40MG/0.4ML SYRINGE (J1650 PER 10MG) SC SCH (08:47)
[2019-12-03] MEDS: HumaLOG INSULIN (NovoLOG) PER UNIT SC SCH ×4 (08:47→20:49)
[2019-12-03] MEDS: ATORVASTATIN 20 MG TAB PO SCH (08:47)
[2019-12-03] MEDS: MULTIVITAMINS/MINERALS THERAP 1 TAB PO SCH (08:47)
[2019-12-03] MEDS: **NOTE PATIENT COMMENT** MISC XX SCH (08:48)
[2019-12-03] MEDS: REMEDY PHYTOPLEX Z-GUARD PASTE 113GM TUBE (FROM STOREROOM PRODUCT) TOP SCH ×3 (08:48→21:01)
[2019-12-03 09:03] LABS: BLOOD UREA NITROGEN 7 MG/DL (7-18); CALCIUM LEVEL 8.1 MG/DL (8.8-10.2); CARBON DIOXIDE LEVEL 28 MEQ/L (21-32); CHLORIDE LEVEL 107 MEQ/L (98-107); CREATININE FOR GFR 0.64 MG/DL (0.70-1.30); GLOMERULAR FILTRATION RATE > 60.0 (>49); GLUCOSE, FASTING 145 MG/DL (70-100); POTASSIUM SERUM 3.6 MEQ/L (3.5-5.1); SODIUM LEVEL 139 MEQ/L (136-145)
[2019-12-03 14:00] VITALS: BP 118/56
[2019-12-03 20:00] VITALS: BP 140/62
[2019-12-03] MEDS: SENNA 8.6 MG TAB (SENOKOT) PO SCH (20:49)
[2019-12-03] MEDS: LEVEMIR (INSULIN DETEMIR) 1 UNITS/0.01ML SC SCH (21:00)
[2019-12-03] MEDS: LIDOCAINE 5% (LIDODERM) PATCH TD SCH (21:00)
[2019-12-03] MEDS: RAMELTEON 8 MG TAB (ROZEREM) PO SCH (21:01)
[2019-12-04] MEDS: ACETAMINOPHEN TAB 650MG DOSE (2X325MG) PO PRN ×3 (01:43→15:54)
[2019-12-04] MEDS: BACLOFEN 5MG PER 1/2 TABLET PO PRN ×2 (01:55→21:50)
[2019-12-04 05:38] VITALS: BP 141/80
[2019-12-04] MEDS: IPRATROPIUM 0.5MG/ALBUTEROL 2.5MG INH SOL UD 3ML (DUONEB) INH SCH ×3 (06:22→15:11)
[2019-12-04] MEDS: ENOXAPARIN 40MG/0.4ML SYRINGE (J1650 PER 10MG) SC SCH (08:23)
[2019-12-04] MEDS: NICOTINE 21MG/24HR 1 EA TRANSDERMAL TD SCH (08:23)
[2019-12-04] MEDS: CLOPIDOGREL 75 MG TAB PO SCH (08:23)
[2019-12-04] MEDS: HumaLOG INSULIN (NovoLOG) PER UNIT SC SCH ×4 (08:23→20:09)
[2019-12-04] MEDS: DOXAZOSIN MESYLATE 1 MG TAB PO SCH (08:24)
[2019-12-04] MEDS: atenoloL 50 MG TAB PO SCH (08:24)
[2019-12-04] MEDS: guaiFENesin 200 MG TAB PO SCH ×3 (08:25→21:06)
[2019-12-04] MEDS: GABAPENTIN 300 MG CAP PO SCH ×3 (08:25→21:06)
[2019-12-04] MEDS: EZETIMIBE 10 MG TAB (ZETIA) PO SCH (08:25)
[2019-12-04] MEDS: DOCUSATE SODIUM 100 MG CAP PO SCH ×2 (08:25→21:00)
[2019-12-04] MEDS: TAMSULOSIN 0.4 MG CAP PO SCH (08:25)
[2019-12-04] MEDS: FLUoxetine 20 MG CAP PO SCH (08:25)
[2019-12-04] MEDS: lisinopriL 40 MG TAB PO SCH (08:25)
[2019-12-04] MEDS: PANTOPRAZOLE 40MG TAB (PROTONIX) PO SCH (08:25)
[2019-12-04] MEDS: MULTIVITAMINS/MINERALS THERAP 1 TAB PO SCH (08:25)
[2019-12-04] MEDS: FUROSEMIDE 20 MG TAB PO SCH (08:25)
[2019-12-04] MEDS: THIAMINE 100 MG TAB PO SCH (08:25)
[2019-12-04] MEDS: METOCLOPRAMIDE 5 MG TAB PO SCH ×3 (08:25→17:13)
[2019-12-04] MEDS: REMEDY PHYTOPLEX Z-GUARD PASTE 113GM TUBE (FROM STOREROOM PRODUCT) TOP SCH ×3 (08:26→21:08)
[2019-12-04] MEDS: ASPIRIN 81 MG CHEW TABLET PO SCH (08:26)
[2019-12-04] MEDS: ATORVASTATIN 20 MG TAB PO SCH (08:26)
[2019-12-04] MEDS: **NOTE PATIENT COMMENT** MISC XX SCH (08:26)
[2019-12-04 14:00] VITALS: BP 111/58
[2019-12-04 20:20] VITALS: BP 148/68
[2019-12-04] MEDS: SENNA 8.6 MG TAB (SENOKOT) PO SCH (21:00)
[2019-12-04] MEDS: RAMELTEON 8 MG TAB (ROZEREM) PO SCH (21:06)
[2019-12-04] MEDS: LIDOCAINE 5% (LIDODERM) PATCH TD SCH (21:07)
[2019-12-04] MEDS: LEVEMIR (INSULIN DETEMIR) 1 UNITS/0.01ML SC SCH (21:07)
[2019-12-04] MEDS: oxyCODONE 5MG TAB PO PRN (21:50)
[2019-12-05] MEDS: ACETAMINOPHEN TAB 650MG DOSE (2X325MG) PO PRN ×4 (04:12→21:29)
[2019-12-05 05:51] VITALS: BP 140/82
[2019-12-05] MEDS: oxyCODONE 5MG TAB PO PRN (07:03)
[2019-12-05] MEDS: METOCLOPRAMIDE 5 MG TAB PO SCH ×3 (07:03→17:30)
[2019-12-05] MEDS: IPRATROPIUM 0.5MG/ALBUTEROL 2.5MG INH SOL UD 3ML (DUONEB) INH SCH ×3 (07:36→14:57)
[2019-12-05] MEDS: GABAPENTIN 300 MG CAP PO SCH ×3 (08:46→21:28)
[2019-12-05] MEDS: ASPIRIN 81 MG CHEW TABLET PO SCH (08:46)
[2019-12-05] MEDS: guaiFENesin 200 MG TAB PO SCH ×3 (08:46→21:29)
[2019-12-05] MEDS: FLUoxetine 20 MG CAP PO SCH (08:47)
[2019-12-05] MEDS: CLOPIDOGREL 75 MG TAB PO SCH (08:47)
[2019-12-05] MEDS: THIAMINE 100 MG TAB PO SCH (08:47)
[2019-12-05] MEDS: DOCUSATE SODIUM 100 MG CAP PO SCH ×2 (08:47→21:29)
[2019-12-05] MEDS: TAMSULOSIN 0.4 MG CAP PO SCH (08:47)
[2019-12-05] MEDS: ATORVASTATIN 20 MG TAB PO SCH (08:47)
[2019-12-05] MEDS: DOXAZOSIN MESYLATE 1 MG TAB PO SCH (08:48)
[2019-12-05] MEDS: atenoloL 50 MG TAB PO SCH (08:48)
[2019-12-05] MEDS: lisinopriL 40 MG TAB PO SCH (08:48)
[2019-12-05] MEDS: PANTOPRAZOLE 40MG TAB (PROTONIX) PO SCH (08:48)
[2019-12-05] MEDS: MULTIVITAMINS/MINERALS THERAP 1 TAB PO SCH (08:48)
[2019-12-05] MEDS: EZETIMIBE 10 MG TAB (ZETIA) PO SCH (08:48)
[2019-12-05] MEDS: FUROSEMIDE 20 MG TAB PO SCH (08:48)
[2019-12-05] MEDS: NICOTINE 21MG/24HR 1 EA TRANSDERMAL TD SCH (08:49)
[2019-12-05] MEDS: ENOXAPARIN 40MG/0.4ML SYRINGE (J1650 PER 10MG) SC SCH (08:49)
[2019-12-05] MEDS: HumaLOG INSULIN (NovoLOG) PER UNIT SC SCH ×4 (08:58→20:37)
[2019-12-05] MEDS: REMEDY PHYTOPLEX Z-GUARD PASTE 113GM TUBE (FROM STOREROOM PRODUCT) TOP SCH ×3 (08:58→21:30)
[2019-12-05] MEDS: **NOTE PATIENT COMMENT** MISC XX SCH (08:59)
[2019-12-05 14:00] VITALS: BP 134/68
[2019-12-05] MEDS ORDERED: LACTULOSE 20 GM/30 ML SYRUP UD PO ONE (16:00)
[2019-12-05 19:36] LABS: HEMATOCRIT 24.2 % (42.0-52.0); MEAN CORPUSCULAR HEMOGLOBIN 30.9 pg (27.0-33.0); MEAN CORPUSCULAR HGB CONC 33.1 g/dl (32.0-36.5); MEAN CORPUSCULAR VOLUME 93.4 fl (80.0-96.0); RED BLOOD COUNT 2.59 10^6/uL (4.30-6.10); WHITE BLOOD COUNT 9.6 10^3/uL (4.0-10.0)
[2019-12-05 19:37] LABS: BASO % 0.2 % (0.0-1.0); EOS # 0.4 10^3/uL (0.0-0.5); EOS % 4.1 % (0.0-3.0); LYMPH # 1.1 10^3/uL (1.5-5.0); LYMPH % 11.9 % (24.0-44.0); MONO # 0.6 10^3/uL (0.0-0.8); NEUTROPHILS # 7.4 10^3/uL (1.5-8.5); PLATELET COUNT, AUTOMATED 322 10^3/uL (150-450)
[2019-12-05 20:00] VITALS: BP 138/64
[2019-12-05] MEDS: SENNA 8.6 MG TAB (SENOKOT) PO SCH (21:28)
[2019-12-05] MEDS: RAMELTEON 8 MG TAB (ROZEREM) PO SCH (21:29)
[2019-12-05] MEDS: BACLOFEN 5MG PER 1/2 TABLET PO PRN (21:29)
[2019-12-05] MEDS: LIDOCAINE 5% (LIDODERM) PATCH TD SCH (21:30)
[2019-12-05] MEDS: LEVEMIR (INSULIN DETEMIR) 1 UNITS/0.01ML SC SCH (21:30)
[2019-12-05] MEDS ORDERED: FLEET ENEMA PR PRN (22:00)
[2019-12-06] MEDS: ACETAMINOPHEN TAB 650MG DOSE (2X325MG) PO PRN ×5 (01:47→20:39)
[2019-12-06 06:00] VITALS: BP 158/84
[2019-12-06] MEDS: IPRATROPIUM 0.5MG/ALBUTEROL 2.5MG INH SOL UD 3ML (DUONEB) INH SCH ×3 (07:22→15:06)
[2019-12-06] MEDS: DOCUSATE SODIUM 100 MG CAP PO SCH ×2 (07:34→20:39)
[2019-12-06] MEDS: guaiFENesin 200 MG TAB PO SCH ×3 (07:34→20:39)
[2019-12-06] MEDS: lisinopriL 40 MG TAB PO SCH (07:34)
[2019-12-06] MEDS: EZETIMIBE 10 MG TAB (ZETIA) PO SCH (07:34)
[2019-12-06] MEDS: ASPIRIN 81 MG CHEW TABLET PO SCH (07:34)
[2019-12-06] MEDS: GABAPENTIN 300 MG CAP PO SCH ×3 (07:34→20:39)
[2019-12-06] MEDS: DOXAZOSIN MESYLATE 1 MG TAB PO SCH (07:35)
[2019-12-06] MEDS: FUROSEMIDE 20 MG TAB PO SCH (07:35)
[2019-12-06] MEDS: FLUoxetine 20 MG CAP PO SCH (07:35)
[2019-12-06] MEDS: THIAMINE 100 MG TAB PO SCH (07:35)
[2019-12-06] MEDS: PANTOPRAZOLE 40MG TAB (PROTONIX) PO SCH (07:36)
[2019-12-06] MEDS: MULTIVITAMINS/MINERALS THERAP 1 TAB PO SCH (07:36)
[2019-12-06] MEDS: METOCLOPRAMIDE 5 MG TAB PO SCH ×3 (07:36→16:55)
[2019-12-06] MEDS: atenoloL 50 MG TAB PO SCH (07:36)
[2019-12-06] MEDS: ATORVASTATIN 20 MG TAB PO SCH (07:36)
[2019-12-06] MEDS: TAMSULOSIN 0.4 MG CAP PO SCH (07:36)
[2019-12-06] MEDS: CLOPIDOGREL 75 MG TAB PO SCH (07:36)
[2019-12-06] MEDS: NICOTINE 21MG/24HR 1 EA TRANSDERMAL TD SCH (07:37)
[2019-12-06] MEDS: ENOXAPARIN 40MG/0.4ML SYRINGE (J1650 PER 10MG) SC SCH (07:37)
[2019-12-06] MEDS: HumaLOG INSULIN (NovoLOG) PER UNIT SC SCH ×4 (07:37→19:47)
[2019-12-06] MEDS: REMEDY PHYTOPLEX Z-GUARD PASTE 113GM TUBE (FROM STOREROOM PRODUCT) TOP SCH ×3 (07:38→20:40)
[2019-12-06] MEDS: **NOTE PATIENT COMMENT** MISC XX SCH (08:38)
[2019-12-06 09:21] LABS: BASO % 0.6 % (0.0-1.0); EOS # 0.3 10^3/uL (0.0-0.5); EOS % 4.5 % (0.0-3.0); HEMATOCRIT 26.1 % (42.0-52.0); HEMOGLOBIN 8.3 g/dl (13.5-17.5); LYMPH % 14.5 % (24.0-44.0); MEAN CORPUSCULAR HGB CONC 31.8 g/dl (32.0-36.5); MEAN CORPUSCULAR VOLUME 94.2 fl (80.0-96.0); MONO # 0.7 10^3/uL (0.0-0.8); MONO % 9.3 % (0.0-5.0); NEUTROPHILS # 5.1 10^3/uL (1.5-8.5); NEUTROPHILS % 70.7 % (36.0-66.0); PLATELET COUNT, AUTOMATED 393 10^3/uL (150-450); RED BLOOD COUNT 2.77 10^6/uL (4.30-6.10); WHITE BLOOD COUNT 7.2 10^3/uL (4.0-10.0)
[2019-12-06 09:51] LABS: BLOOD UREA NITROGEN 5 MG/DL (7-18); CALCIUM LEVEL 7.6 MG/DL (8.8-10.2); CARBON DIOXIDE LEVEL 27 MEQ/L (21-32); CHLORIDE LEVEL 108 MEQ/L (98-107); CREATININE FOR GFR 0.56 MG/DL (0.70-1.30); GLOMERULAR FILTRATION RATE > 60.0 (>49); GLUCOSE, FASTING 118 MG/DL (70-100); POTASSIUM SERUM 3.3 MEQ/L (3.5-5.1); SODIUM LEVEL 143 MEQ/L (136-145)
[2019-12-06] MEDS ORDERED: oxyCODONE 5MG TAB PO PRN (10:00)
[2019-12-06 14:00] VITALS: BP 108/55
--- NOTE | 2019-12-06 19:40 | IPNPDOC ---
Date Seen The patient was seen on 12/06/19. Progress Note SUBJECTIVE: seen and examined patient at bedside. Doing well. PT progressing. Had constipation, improved. Had BM this morning. Doing well otherwise. No new complaints. OBJECTIVE PHYSICAL EXAMINATION: VITAL SIGNS: Please see below. GENERAL: NAD, comfortable HEENT: PERRLA CARDIOVASCULAR: EOMI. RESPIRATORY: CTAB. ABDOMINAL: soft, non tender EXTREMITIES: R AKA, prosthesis on NEUROLOGICAL: R sided facial droop. Strength 5/5 in upper and lower extremities. PSYCHOLOGICAL: calm, pleasant, cooperative LABORATORY DATA, IMAGING STUDIES, MICROBIOLOGY: Please see below. DVT prophylaxis ordered?: Y lovenox ASSESSMENT AND PLAN: 64 yo M with a hx of ESUS, DM2, HTN, s/p CVA involving L MCA territory. Undergoing rehab. PROBLEMS: 1. L MCA CVA: ongoing physical therapy. BP control. Cont meds. 2. L femoral neck fx: s/p L hip arthroplasty. ortho follow up. PT/OT. pain controlled. Gerry removed. 3. HTN: well controlled 4. DM2: continue meds 5: HLD: c/w meds DISPOSITION: pending ARU decision VS, I&O, 24H, Fishbone Vital Signs/I&O Vital Signs Date Time Temp Pulse Resp B/P (MAP) Pulse Ox O2 Delivery O2 Flow Rate FiO2 12/06/19 14:00 98.5 80 16 108/55 (72) 95 Room Air I&O- Last 24 Hours up to 6 AM 12/06/19 06:00 Intake Total 990 ml Output Total 750 ml Balance 240 ml Laboratory Data 24H LABS Laboratory Tests 2 12/06/19 08:41: Immature Granulocyte % (Auto) 0.4, Neutrophils (%) (Auto) 70.7H, Lymphocytes (%) (Auto) 14.5L, Monocytes (%) (Auto) 9.3H, Eosinophils (%) (Auto) 4.5H, Basophils (%) (Auto) 0.6, Neutrophils # (Auto) 5.1, Lymphocytes # (Auto) 1.0L, Monocytes # (Auto) 0.7, Eosinophils # (Auto) 0.3, Basophils # (Auto) 0.0, Nucleated Red Blood Cells % (auto) 0.0, Anion Gap 8, Glomerular Filtration Rate > 60.0, Calcium Level 7.6L CBC/BMP Laboratory Tests 12/06/19 08:41 Microbiology Microbiology 11/30/19 Urine Culture - Final, Complete ANAMIKA GORMAN MD Dec 06, 2019 19:40
[2019-12-06 20:00] VITALS: BP 122/57
[2019-12-06] MEDS: LEVEMIR (INSULIN DETEMIR) 1 UNITS/0.01ML SC SCH (20:38)
[2019-12-06] MEDS: SENNA 8.6 MG TAB (SENOKOT) PO SCH (20:39)
[2019-12-06] MEDS: LIDOCAINE 5% (LIDODERM) PATCH TD SCH (20:39)
[2019-12-06] MEDS: RAMELTEON 8 MG TAB (ROZEREM) PO SCH (20:39)
[2019-12-06] MEDS ORDERED: POTASSIUM CHLORIDE 10 MEQ SR TABLET PO ONE (21:30)
--- NOTE | 2019-12-06 21:33 | IPNPDOC ---
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 he is in agreement to stop his Ditropan which can cannot recall why it was started in the past to help with emptying his blader better. ROS Denies fever, chills, easy bruising, tremor, chest pain, difficulty breathing, dysphagia, rhinorrhea, rash, diarrhea/constipation, +urinary retention (improving) MEds- see EMR OBJECTIVE: VITAL SIGNS: Please see below. PHYSICAL EXAMINATION: GENERAL: well developed, sitting up in chair, NAD HEENT: Normocephalic, atraumatic PERRL, EOMI CARDIOVASCULAR: S1, S2, rrr LUNGS: CTA ABDOMEN: Soft, nontender, nondistended. Normoactive bowel sounds throughout MUSCULOSKELETAL: MMT: 5/5 strength bilat UE, >3/5 left LE (limited by recent surgery), 5/5 right hip flexion NEUROLOGICAL: Alert and oriented times three. Answers all question appropriately SKIN: left hip incision c/d/i ASSESSMENT AND PLAN: 64M pmh right AKA with left hip fracture and left MCA infarct. 1. 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 Neuro- s/p left MCA infarct s/p TPA, c/u ASA and plavix for secondary stroke prevention and for known left ICA stenosis -SSRI for motor recovery 3. Cardiac- c/u BP meds, including lasix for LLE edema 4. - urinary retention slowly improving with addition of Flomax, will d/c Ditropan 5. GI- patient reporting nausea with meals which has improved since starting reglan, c/u 6. endo- c/u ISS and levemir for DM 7. Psych- c/u rozerem for insomnia 8. Dispo- 12-14-19 to home, progressing towards goals Allergies Coded Allergies: warfarin (Verified Allergy, Intermediate, HEMATURIA, 12/04/18) Lizceoq-Jla-Yvh Reductase Inhibitor (Verified Allergy, Mild, STOMACH UPSET, 12/04/18) caffeine (Verified Allergy, Mild, GI UPSET, 12/04/18) hydrocodone (Verified Allergy, Mild, GI UPSET, 12/04/18) varenicline (Verified Adverse Reaction, Mild, nausea, 11/30/19) duloxetine (Verified Adverse Reaction, Unknown, SEIZURE/ NAUSEA, 12/04/18) Vital Signs Vital Signs Date Time Temp Pulse Resp B/P (MAP) Pulse Ox O2 Delivery O2 Flow Rate FiO2 12/06/19 20:00 98.3 82 18 122/57 (78) 100 Room Air Laboratory Data CBC/BMP Laboratory Tests 12/06/19 08:41 Labs 24H Laboratory Tests 2 12/06/19 08:41: Immature Granulocyte % (Auto) 0.4, Neutrophils (%) (Auto) 70.7H, Lymphocytes (%) (Auto) 14.5L, Monocytes (%) (Auto) 9.3H, Eosinophils (%) (Auto) 4.5H, Basophils (%) (Auto) 0.6, Neutrophils # (Auto) 5.1, Lymphocytes # (Auto) 1.0L, Monocytes # (Auto) 0.7, Eosinophils # (Auto) 0.3, Basophils # (Auto) 0.0, Nucleated Red Blood Cells % (auto) 0.0, Anion Gap 8, Glomerular Filtration Rate > 60.0, Calcium Level 7.6L Microbiology Microbiology 11/30/19 Urine Culture - Final, Complete Current Medications Current Medications Current Medications Medications (Trade) Dose Ordered Sig/Dayana Route PRN Reason Start Time Stop Time Status Last Admin Dose Admin Acetaminophen (Tylenol Tab) 650 mg Q4HP PRN PO PAIN OR FEVER 12/01/19 13:00 12/06/19 20:39 Acetaminophen (Tylenol Tab) 975 mg QID PO 11/30/19 21:00 12/01/19 12:57 DC 12/01/19 12:07 Acetaminophen (Tylenol Tab) 1,000 mg Q8H PO 11/30/19 22:00 11/30/19 13:56 DC Albuterol/ Ipratropium (Duoneb (Ipr 0.5mg/Alb 2.5mg)) 3 ml RQ8H INH 11/30/19 16:00 12/06/19 15:06 Aspirin (Aspirin Chewable) 81 mg DAILY PO 12/01/19 09:00 12/06/19 07:34 Atenolol (Tenormin) 100 mg DAILY PO 12/01/19 09:00 12/06/19 07:36 Atorvastatin Calcium (Lipitor) 80 mg DAILY PO 12/01/19 09:00 12/06/19 07:36 Baclofen (Lioresal) 5 mg ASDIRECTED PRN PO spasm/pain 12/01/19 14:45 12/05/19 21:29 Clopidogrel Bisulfate (PLAVix) 75 mg DAILY PO 12/01/19 09:00 12/06/19 07:36 Dextrose (Dextrose 50%) 25 ml ASDIRECTED PRN IV SEE LABEL COMMENTS 11/30/19 09:30 Docusate Sodium (Colace) 100 mg BID PO 11/30/19 21:00 12/06/19 20:39 Doxazosin Mesylate (Cardura) 2 mg DAILY PO 12/01/19 09:00 12/06/19 07:35 Enoxaparin Sodium (Lovenox) 40 mg DAILY SC 12/01/19 09:00 12/06/19 07:37 EZETIMIBE (Zetia) 10 mg DAILY PO 12/01/19 09:00 12/06/19 07:34 Fluoxetine HCl (PROzac) 20 mg DAILY PO 12/01/19 09:00 12/06/19 07:35 Furosemide (Lasix) 20 mg DAILY PO 12/01/19 09:00 12/06/19 07:35 Gabapentin (Neurontin) 600 mg TID PO 11/30/19 21:00 12/06/19 20:39 Glucagon (Glucagon) 1 mg ASDIRECTED PRN SC SEE LABEL COMMENTS 11/30/19 09:30 Glucose (Glucose) 16GM'S (4 TABS) ASDIRECTED PRN PO SEE LABEL COMMENTS 11/30/19 09:30 Guaifenesin (Robitussin Tab) 400 mg TID PO 11/30/19 21:00 12/06/19 20:39 Home Med (Med Rec Complete!) ASDIRECTED XX 11/30/19 09:30 11/30/19 09:26 DC Insulin Detemir (Levemir Insulin) 5 units QHS SC 11/30/19 21:00 12/06/19 20:38 Insulin Human Lispro (HumaLOG INSULIN) See Protocol Table AC SC 11/30/19 12:00 12/06/19 16:56 Insulin Human Lispro (HumaLOG INSULIN) See Protocol Table QHS SC 11/30/19 21:00 Lidocaine (Lidoderm Patch) 1 patch QHS TD 12/01/19 21:00 12/06/19 20:39 Lisinopril (Prinivil) 40 mg DAILY PO 12/01/19 09:00 12/06/19 07:34 Metoclopramide HCl (Reglan) 5 mg AC PO 12/01/19 07:30 12/06/19 16:55 Multivitamins (Theragram-M) 1 tab DAILY PO 12/01/19 09:00 12/06/19 07:36 Nicotine (Nicoderm Cq 21mg) 1 patch DAILY TD 12/01/19 09:00 12/06/19 07:37 Non-Formulary Medication ( See Comment Field Below ) REMOVE LIDODERM PATCH DAILY XX 12/02/19 09:00 12/06/19 08:38 Oxybutynin Chloride (Ditropan Xl) 5 mg DAILY PO 12/01/19 09:00 12/01/19 12:57 DC 12/01/19 08:14 Oxycodone HCl (Roxicodone, Oxyir) 2.5 mg Q4HP PRN PO PAIN >7/10 12/06/19 10:00 Oxycodone HCl (Roxicodone, Oxyir) 2.56 mg Q4HP PRN PO PAIN >7/10 11/30/19 09:30 12/06/19 09:53 DC 12/05/19 07:03 Pantoprazole Sodium (Protonix) 40 mg DAILY PO 12/01/19 09:00 12/06/19 07:36 Ramelteon (Rozerem) 8 mg QHS PO 11/30/19 21:00 12/06/19 20:39 Senna (Senokot) 1 tab QHS PO 11/30/19 21:00 12/06/19 20:39 Sodium Biphosphate/ Sodium Phosphate (Fleet Enema) 1 ea Q3DP PRN [place] CONSTIPATION 12/05/19 22:00 12/05/19 22:09 Tamsulosin HCl (Flomax) 0.8 mg DAILY PO 12/01/19 09:00 12/06/19 07:36 Thiamine HCl (Thiamine HCl) 100 mg DAILY PO 12/01/19 09:00 12/06/19 07:35 KIMI JENKINS MD Dec 06, 2019 21:33
[2019-12-07] MEDS: ACETAMINOPHEN TAB 650MG DOSE (2X325MG) PO PRN ×2 (00:55→20:01)
[2019-12-07 05:48] VITALS: BP 156/90
[2019-12-07] MEDS: IPRATROPIUM 0.5MG/ALBUTEROL 2.5MG INH SOL UD 3ML (DUONEB) INH SCH ×3 (07:18→13:16)
[2019-12-07 07:27] LABS: BLOOD UREA NITROGEN 8 MG/DL (7-18); CALCIUM LEVEL 7.7 MG/DL (8.8-10.2); CARBON DIOXIDE LEVEL 28 MEQ/L (21-32); CHLORIDE LEVEL 108 MEQ/L (98-107); CREATININE FOR GFR 0.61 MG/DL (0.70-1.30); GLOMERULAR FILTRATION RATE > 60.0 (>49); GLUCOSE, FASTING 111 MG/DL (70-100); POTASSIUM SERUM 3.3 MEQ/L (3.5-5.1); SODIUM LEVEL 140 MEQ/L (136-145)
[2019-12-07] MEDS: METOCLOPRAMIDE 5 MG TAB PO SCH ×3 (07:30→17:25)
[2019-12-07] MEDS: DOCUSATE SODIUM 100 MG CAP PO SCH ×2 (08:28→20:02)
[2019-12-07] MEDS: DOXAZOSIN MESYLATE 1 MG TAB PO SCH (08:28)
[2019-12-07] MEDS: ENOXAPARIN 40MG/0.4ML SYRINGE (J1650 PER 10MG) SC SCH (08:29)
[2019-12-07] MEDS: NICOTINE 21MG/24HR 1 EA TRANSDERMAL TD SCH (08:29)
[2019-12-07] MEDS: HumaLOG INSULIN (NovoLOG) PER UNIT SC SCH ×4 (08:30→20:02)
[2019-12-07] MEDS: TAMSULOSIN 0.4 MG CAP PO SCH (08:33)
[2019-12-07] MEDS: MULTIVITAMINS/MINERALS THERAP 1 TAB PO SCH (08:33)
[2019-12-07] MEDS: guaiFENesin 200 MG TAB PO SCH ×3 (08:33→20:01)
[2019-12-07] MEDS: ATORVASTATIN 20 MG TAB PO SCH (08:34)
[2019-12-07] MEDS: PANTOPRAZOLE 40MG TAB (PROTONIX) PO SCH (08:34)
[2019-12-07] MEDS: FLUoxetine 20 MG CAP PO SCH (08:34)
[2019-12-07] MEDS: ASPIRIN 81 MG CHEW TABLET PO SCH (08:34)
[2019-12-07] MEDS: FUROSEMIDE 20 MG TAB PO SCH (08:34)
[2019-12-07] MEDS: GABAPENTIN 300 MG CAP PO SCH ×3 (08:35→20:01)
[2019-12-07] MEDS: EZETIMIBE 10 MG TAB (ZETIA) PO SCH (08:35)
[2019-12-07] MEDS: THIAMINE 100 MG TAB PO SCH (08:35)
[2019-12-07] MEDS: lisinopriL 40 MG TAB PO SCH (08:35)
[2019-12-07] MEDS: atenoloL 50 MG TAB PO SCH (08:36)
[2019-12-07] MEDS: CLOPIDOGREL 75 MG TAB PO SCH (08:36)
[2019-12-07] MEDS: REMEDY PHYTOPLEX Z-GUARD PASTE 113GM TUBE (FROM STOREROOM PRODUCT) TOP SCH ×3 (08:38→20:04)
[2019-12-07] MEDS: **NOTE PATIENT COMMENT** MISC XX SCH (08:38)
--- NOTE | 2019-12-07 11:12 | IPNPDOC ---
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 He was encouraged to sign up for driving rehab program before getting behind the wheel. ROS Denies fever, chills, easy bruising, tremor, chest pain, difficulty breathing, dysphagia, rhinorrhea, rash, diarrhea/constipation, +urinary retention (improving) MEds- see EMR OBJECTIVE: VITAL SIGNS: Please see below. PHYSICAL EXAMINATION: GENERAL: well developed, sitting up in chair, NAD HEENT: Normocephalic, atraumatic PERRL, EOMI CARDIOVASCULAR: S1, S2, rrr LUNGS: CTA ABDOMEN: Soft, nontender, nondistended. Normoactive bowel sounds throughout MUSCULOSKELETAL: MMT: 5/5 strength bilat UE, >3/5 left LE (limited by recent surgery), 5/5 right hip flexion NEUROLOGICAL: Alert and oriented times three. Answers all question appropriately SKIN: left hip incision c/d/i ASSESSMENT AND PLAN: 64M pmh right AKA with left hip fracture and left MCA infarct. 1. 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 Neuro- s/p left MCA infarct s/p TPA, c/u ASA and plavix for secondary stroke prevention and for known left ICA stenosis -SSRI for motor recovery 3. Cardiac- c/u BP meds, including Lasix for LLE edema 4. - urinary retention slowly improving with addition of Flomax, d/c'd Ditropan and retention c/u to improve 5. GI- patient reporting nausea with meals which has improved since starting reglan, c/u 6. endo- c/u ISS and Levemir for DM 7. Psych- c/u Rozerem for insomnia 8. Dispo- 12-14-19 to home, progressing towards goals Allergies Coded Allergies: warfarin (Verified Allergy, Intermediate, HEMATURIA, 12/04/18) Fiqxajn-Hqs-Xkn Reductase Inhibitor (Verified Allergy, Mild, STOMACH UPSET, 12/04/18) caffeine (Verified Allergy, Mild, GI UPSET, 12/04/18) hydrocodone (Verified Allergy, Mild, GI UPSET, 12/04/18) varenicline (Verified Adverse Reaction, Mild, nausea, 11/30/19) duloxetine (Verified Adverse Reaction, Unknown, SEIZURE/ NAUSEA, 12/04/18) Vital Signs Vital Signs Date Time Temp Pulse Resp B/P (MAP) Pulse Ox O2 Delivery O2 Flow Rate FiO2 12/07/19 08:36 78 160/88 12/07/19 06:00 97.9 18 98 Room Air Laboratory Data CBC/BMP Laboratory Tests 12/07/19 06:25 Labs 24H Laboratory Tests 2 12/07/19 06:25: Anion Gap 4L, Glomerular Filtration Rate > 60.0, Calcium Level 7.7L Microbiology Microbiology 11/30/19 Urine Culture - Final, Complete Current Medications Current Medications Current Medications Medications (Trade) Dose Ordered Sig/Dayana Route PRN Reason Start Time Stop Time Status Last Admin Dose Admin Acetaminophen (Tylenol Tab) 650 mg Q4HP PRN PO PAIN OR FEVER 12/01/19 13:00 12/07/19 00:55 Acetaminophen (Tylenol Tab) 975 mg QID PO 11/30/19 21:00 12/01/19 12:57 DC 12/01/19 12:07 Acetaminophen (Tylenol Tab) 1,000 mg Q8H PO 11/30/19 22:00 11/30/19 13:56 DC Albuterol/ Ipratropium (Duoneb (Ipr 0.5mg/Alb 2.5mg)) 3 ml RQ8H INH 11/30/19 16:00 12/06/19 15:06 Aspirin (Aspirin Chewable) 81 mg DAILY PO 12/01/19 09:00 12/07/19 08:34 Atenolol (Tenormin) 100 mg DAILY PO 12/01/19 09:00 12/07/19 08:36 Atorvastatin Calcium (Lipitor) 80 mg DAILY PO 12/01/19 09:00 12/07/19 08:34 Baclofen (Lioresal) 5 mg ASDIRECTED PRN PO spasm/pain 12/01/19 14:45 12/05/19 21:29 Clopidogrel Bisulfate (PLAVix) 75 mg DAILY PO 12/01/19 09:00 12/07/19 08:36 Dextrose (Dextrose 50%) 25 ml ASDIRECTED PRN IV SEE LABEL COMMENTS 11/30/19 09:30 Docusate Sodium (Colace) 100 mg BID PO 11/30/19 21:00 12/07/19 08:28 Doxazosin Mesylate (Cardura) 2 mg DAILY PO 12/01/19 09:00 12/07/19 08:28 Enoxaparin Sodium (Lovenox) 40 mg DAILY SC 12/01/19 09:00 12/07/19 08:29 EZETIMIBE (Zetia) 10 mg DAILY PO 12/01/19 09:00 12/07/19 08:35 Fluoxetine HCl (PROzac) 20 mg DAILY PO 12/01/19 09:00 12/07/19 08:34 Furosemide (Lasix) 20 mg DAILY PO 12/01/19 09:00 12/07/19 08:34 Gabapentin (Neurontin) 600 mg TID PO 11/30/19 21:00 12/07/19 08:35 Glucagon (Glucagon) 1 mg ASDIRECTED PRN SC SEE LABEL COMMENTS 11/30/19 09:30 Glucose (Glucose) 16GM'S (4 TABS) ASDIRECTED PRN PO SEE LABEL COMMENTS 11/30/19 09:30 Guaifenesin (Robitussin Tab) 400 mg TID PO 11/30/19 21:00 12/07/19 08:33 Home Med (Med Rec Complete!) ASDIRECTED XX 11/30/19 09:30 11/30/19 09:26 DC Insulin Detemir (Levemir Insulin) 5 units QHS SC 11/30/19 21:00 12/06/19 20:38 Insulin Human Lispro (HumaLOG INSULIN) See Protocol Table AC SC 11/30/19 12:00 12/07/19 08:30 Insulin Human Lispro (HumaLOG INSULIN) See Protocol Table QHS SC 11/30/19 21:00 Lidocaine (Lidoderm Patch) 1 patch QHS TD 12/01/19 21:00 12/06/19 20:39 Lisinopril (Prinivil) 40 mg DAILY PO 12/01/19 09:00 12/07/19 08:35 Metoclopramide HCl (Reglan) 5 mg AC PO 12/01/19 07:30 12/06/19 16:55 Multivitamins (Theragram-M) 1 tab DAILY PO 12/01/19 09:00 12/07/19 08:33 Nicotine (Nicoderm Cq 21mg) 1 patch DAILY TD 12/01/19 09:00 12/07/19 08:29 Non-Formulary Medication ( See Comment Field Below ) REMOVE LIDODERM PATCH DAILY XX 12/02/19 09:00 12/07/19 08:38 Oxybutynin Chloride (Ditropan Xl) 5 mg DAILY PO 12/01/19 09:00 12/01/19 12:57 DC 12/01/19 08:14 Oxycodone HCl (Roxicodone, Oxyir) 2.5 mg Q4HP PRN PO PAIN >7/10 12/06/19 10:00 Oxycodone HCl (Roxicodone, Oxyir) 2.56 mg Q4HP PRN PO PAIN >7/10 11/30/19 09:30 12/06/19 09:53 DC 12/05/19 07:03 Pantoprazole Sodium (Protonix) 40 mg DAILY PO 12/01/19 09:00 12/07/19 08:34 Ramelteon (Rozerem) 8 mg QHS PO 11/30/19 21:00 12/06/19 20:39 Senna (Senokot) 1 tab QHS PO 11/30/19 21:00 12/06/19 20:39 Sodium Biphosphate/ Sodium Phosphate (Fleet Enema) 1 ea Q3DP PRN [place] CONSTIPATION 12/05/19 22:00 12/05/19 22:09 Tamsulosin HCl (Flomax) 0.8 mg DAILY PO 12/01/19 09:00 12/07/19 08:33 Thiamine HCl (Thiamine HCl) 100 mg DAILY PO 12/01/19 09:00 12/07/19 08:35 KIMI JENKINS MD Dec 07, 2019 11:12
--- NOTE | 2019-12-07 11:12 | IPNPDOC ---
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 He agreed to practice bedside commode transfers with therapy to avoid this happening at home when he may not have time to don his prosthesis. ROS Denies fever, chills, easy bruising, tremor, chest pain, difficulty breathing, dysphagia, rhinorrhea, rash, diarrhea/constipation, +urinary retention (improving) MEds- see EMR OBJECTIVE: VITAL SIGNS: Please see below. PHYSICAL EXAMINATION: GENERAL: well developed, sitting up in chair, NAD HEENT: Normocephalic, atraumatic PERRL, EOMI CARDIOVASCULAR: S1, S2, rrr LUNGS: CTA ABDOMEN: Soft, nontender, nondistended. Normoactive bowel sounds throughout MUSCULOSKELETAL: MMT: 5/5 strength bilat UE, >3/5 left LE (limited by recent surgery), 5/5 right hip flexion NEUROLOGICAL: Alert and oriented times three. Answers all question appropriately SKIN: left hip incision c/d/i ASSESSMENT AND PLAN: 64M pmh right AKA with left hip fracture and left MCA infarct 1. 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 Neuro- s/p left MCA infarct s/p TPA, c/u ASA and plavix for secondary stroke prevention and for known left ICA stenosis -SSRI for motor recovery 3. Cardiac- c/u BP meds, including Lasix for LLE edema 4. - urinary retention slowly improving with addition of Flomax, d/c'd Ditropan and retention c/u to improve 5. GI- patient reporting nausea with meals which has improved since starting reglan, c/u 6. endo- c/u ISS and Levemir for DM 7. Psych- c/u Rozerem for insomnia 8. Dispo- 12-14-19 to home, progressing towards goals Allergies Coded Allergies: warfarin (Verified Allergy, Intermediate, HEMATURIA, 12/04/18) Kryyykr-Elk-Wgh Reductase Inhibitor (Verified Allergy, Mild, STOMACH UPSET, 12/04/18) caffeine (Verified Allergy, Mild, GI UPSET, 12/04/18) hydrocodone (Verified Allergy, Mild, GI UPSET, 12/04/18) varenicline (Verified Adverse Reaction, Mild, nausea, 11/30/19) duloxetine (Verified Adverse Reaction, Unknown, SEIZURE/ NAUSEA, 12/04/18) Vital Signs Vital Signs Date Time Temp Pulse Resp B/P (MAP) Pulse Ox O2 Delivery O2 Flow Rate FiO2 12/07/19 08:36 78 160/88 12/07/19 06:00 97.9 18 98 Room Air Laboratory Data CBC/BMP Laboratory Tests 12/07/19 06:25 Labs 24H Laboratory Tests 2 12/07/19 06:25: Anion Gap 4L, Glomerular Filtration Rate > 60.0, Calcium Level 7.7L Microbiology Microbiology 11/30/19 Urine Culture - Final, Complete Current Medications Current Medications Current Medications Medications (Trade) Dose Ordered Sig/Dayana Route PRN Reason Start Time Stop Time Status Last Admin Dose Admin Acetaminophen (Tylenol Tab) 650 mg Q4HP PRN PO PAIN OR FEVER 12/01/19 13:00 12/07/19 00:55 Acetaminophen (Tylenol Tab) 975 mg QID PO 11/30/19 21:00 12/01/19 12:57 DC 12/01/19 12:07 Acetaminophen (Tylenol Tab) 1,000 mg Q8H PO 11/30/19 22:00 11/30/19 13:56 DC Albuterol/ Ipratropium (Duoneb (Ipr 0.5mg/Alb 2.5mg)) 3 ml RQ8H INH 11/30/19 16:00 12/06/19 15:06 Aspirin (Aspirin Chewable) 81 mg DAILY PO 12/01/19 09:00 12/07/19 08:34 Atenolol (Tenormin) 100 mg DAILY PO 12/01/19 09:00 12/07/19 08:36 Atorvastatin Calcium (Lipitor) 80 mg DAILY PO 12/01/19 09:00 12/07/19 08:34 Baclofen (Lioresal) 5 mg ASDIRECTED PRN PO spasm/pain 12/01/19 14:45 12/05/19 21:29 Clopidogrel Bisulfate (PLAVix) 75 mg DAILY PO 12/01/19 09:00 12/07/19 08:36 Dextrose (Dextrose 50%) 25 ml ASDIRECTED PRN IV SEE LABEL COMMENTS 11/30/19 09:30 Docusate Sodium (Colace) 100 mg BID PO 11/30/19 21:00 12/07/19 08:28 Doxazosin Mesylate (Cardura) 2 mg DAILY PO 12/01/19 09:00 12/07/19 08:28 Enoxaparin Sodium (Lovenox) 40 mg DAILY SC 12/01/19 09:00 12/07/19 08:29 EZETIMIBE (Zetia) 10 mg DAILY PO 12/01/19 09:00 12/07/19 08:35 Fluoxetine HCl (PROzac) 20 mg DAILY PO 12/01/19 09:00 12/07/19 08:34 Furosemide (Lasix) 20 mg DAILY PO 12/01/19 09:00 12/07/19 08:34 Gabapentin (Neurontin) 600 mg TID PO 11/30/19 21:00 12/07/19 08:35 Glucagon (Glucagon) 1 mg ASDIRECTED PRN SC SEE LABEL COMMENTS 11/30/19 09:30 Glucose (Glucose) 16GM'S (4 TABS) ASDIRECTED PRN PO SEE LABEL COMMENTS 11/30/19 09:30 Guaifenesin (Robitussin Tab) 400 mg TID PO 11/30/19 21:00 12/07/19 08:33 Home Med (Med Rec Complete!) ASDIRECTED XX 11/30/19 09:30 11/30/19 09:26 DC Insulin Detemir (Levemir Insulin) 5 units QHS SC 11/30/19 21:00 12/06/19 20:38 Insulin Human Lispro (HumaLOG INSULIN) See Protocol Table AC SC 11/30/19 12:00 12/07/19 08:30 Insulin Human Lispro (HumaLOG INSULIN) See Protocol Table QHS SC 11/30/19 21:00 Lidocaine (Lidoderm Patch) 1 patch QHS TD 12/01/19 21:00 12/06/19 20:39 Lisinopril (Prinivil) 40 mg DAILY PO 12/01/19 09:00 12/07/19 08:35 Metoclopramide HCl (Reglan) 5 mg AC PO 12/01/19 07:30 12/06/19 16:55 Multivitamins (Theragram-M) 1 tab DAILY PO 12/01/19 09:00 12/07/19 08:33 Nicotine (Nicoderm Cq 21mg) 1 patch DAILY TD 12/01/19 09:00 12/07/19 08:29 Non-Formulary Medication ( See Comment Field Below ) REMOVE LIDODERM PATCH DAILY XX 12/02/19 09:00 12/07/19 08:38 Oxybutynin Chloride (Ditropan Xl) 5 mg DAILY PO 12/01/19 09:00 12/01/19 12:57 DC 12/01/19 08:14 Oxycodone HCl (Roxicodone, Oxyir) 2.5 mg Q4HP PRN PO PAIN >7/10 12/06/19 10:00 Oxycodone HCl (Roxicodone, Oxyir) 2.56 mg Q4HP PRN PO PAIN >7/10 11/30/19 09:30 12/06/19 09:53 DC 12/05/19 07:03 Pantoprazole Sodium (Protonix) 40 mg DAILY PO 12/01/19 09:00 12/07/19 08:34 Ramelteon (Rozerem) 8 mg QHS PO 11/30/19 21:00 12/06/19 20:39 Senna (Senokot) 1 tab QHS PO 11/30/19 21:00 12/06/19 20:39 Sodium Biphosphate/ Sodium Phosphate (Fleet Enema) 1 ea Q3DP PRN [place] CONSTIPATION 12/05/19 22:00 12/05/19 22:09 Tamsulosin HCl (Flomax) 0.8 mg DAILY PO 12/01/19 09:00 12/07/19 08:33 Thiamine HCl (Thiamine HCl) 100 mg DAILY PO 12/01/19 09:00 12/07/19 08:35 KIMI JENKINS MD Dec 07, 2019 11:12
[2019-12-07 14:00] VITALS: BP 106/55
[2019-12-07] MEDS: RAMELTEON 8 MG TAB (ROZEREM) PO SCH (20:01)
[2019-12-07] MEDS: LEVEMIR (INSULIN DETEMIR) 1 UNITS/0.01ML SC SCH (20:02)
[2019-12-07] MEDS: SENNA 8.6 MG TAB (SENOKOT) PO SCH (20:02)
[2019-12-07] MEDS: LIDOCAINE 5% (LIDODERM) PATCH TD SCH (20:02)
[2019-12-07 21:25] VITALS: BP 152/74
[2019-12-08] MEDS: ACETAMINOPHEN TAB 650MG DOSE (2X325MG) PO PRN ×5 (01:38→21:14)
[2019-12-08] MEDS: BACLOFEN 5MG PER 1/2 TABLET PO PRN ×2 (01:38→21:13)
[2019-12-08 05:52] VITALS: BP 170/84
[2019-12-08] MEDS: METOCLOPRAMIDE 5 MG TAB PO SCH ×2 (06:08→11:57)
[2019-12-08 06:26] VITALS: BP 154/84
[2019-12-08] MEDS: DOCUSATE SODIUM 100 MG CAP PO SCH ×2 (07:19→21:00)
[2019-12-08] MEDS: IPRATROPIUM 0.5MG/ALBUTEROL 2.5MG INH SOL UD 3ML (DUONEB) INH SCH ×4 (08:00→23:14)
[2019-12-08] MEDS: NICOTINE 21MG/24HR 1 EA TRANSDERMAL TD SCH (08:41)
[2019-12-08] MEDS: ASPIRIN 81 MG CHEW TABLET PO SCH (08:41)
[2019-12-08] MEDS: FLUoxetine 20 MG CAP PO SCH (08:42)
[2019-12-08] MEDS: guaiFENesin 200 MG TAB PO SCH ×3 (08:42→21:14)
[2019-12-08] MEDS: DOXAZOSIN MESYLATE 1 MG TAB PO SCH (08:42)
[2019-12-08] MEDS: ATORVASTATIN 20 MG TAB PO SCH (08:42)
[2019-12-08] MEDS: GABAPENTIN 300 MG CAP PO SCH ×3 (08:43→21:14)
[2019-12-08] MEDS: FUROSEMIDE 20 MG TAB PO SCH (08:43)
[2019-12-08] MEDS: HumaLOG INSULIN (NovoLOG) PER UNIT SC SCH ×4 (08:43→21:00)
[2019-12-08] MEDS: PANTOPRAZOLE 40MG TAB (PROTONIX) PO SCH (08:43)
[2019-12-08] MEDS: CLOPIDOGREL 75 MG TAB PO SCH (08:43)
[2019-12-08] MEDS: MULTIVITAMINS/MINERALS THERAP 1 TAB PO SCH (08:43)
[2019-12-08] MEDS: TAMSULOSIN 0.4 MG CAP PO SCH (08:43)
[2019-12-08] MEDS: REMEDY PHYTOPLEX Z-GUARD PASTE 113GM TUBE (FROM STOREROOM PRODUCT) TOP SCH ×3 (08:44→21:15)
[2019-12-08] MEDS: ENOXAPARIN 40MG/0.4ML SYRINGE (J1650 PER 10MG) SC SCH (08:44)
[2019-12-08] MEDS: **NOTE PATIENT COMMENT** MISC XX SCH (08:44)
[2019-12-08] MEDS: EZETIMIBE 10 MG TAB (ZETIA) PO SCH (08:44)
[2019-12-08] MEDS: atenoloL 50 MG TAB PO SCH (08:44)
[2019-12-08] MEDS: lisinopriL 40 MG TAB PO SCH (08:44)
[2019-12-08] MEDS: THIAMINE 100 MG TAB PO SCH (08:44)
[2019-12-08] MEDS ORDERED: METOCLOPRAMIDE 5 MG TAB PO PRN (12:45)
--- NOTE | 2019-12-08 12:47 | IPNPDOC ---
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 He said he tried the baclofen last night and it helped and was encouraged to try taking it right before bed to help him sleep through the night. ROS Denies fever, chills, easy bruising, tremor, chest pain, difficulty breathing, dysphagia, rhinorrhea, rash, diarrhea/constipation, +urinary retention (improving) MEds- see EMR OBJECTIVE: VITAL SIGNS: Please see below. PHYSICAL EXAMINATION: GENERAL: well developed, sitting up in chair, NAD HEENT: Normocephalic, atraumatic PERRL, EOMI CARDIOVASCULAR: S1, S2, rrr LUNGS: CTA ABDOMEN: Soft, nontender, nondistended. Normoactive bowel sounds throughout MUSCULOSKELETAL: MMT: 5/5 strength bilat UE, >3/5 left LE (limited by recent surgery), 5/5 right hip flexion NEUROLOGICAL: Alert and oriented times three. Answers all question appropriately SKIN: left hip incision c/d/i ASSESSMENT AND PLAN: 64M pmh right AKA with left hip fracture and left MCA infarct 1. 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 Neuro- s/p left MCA infarct s/p TPA, c/u ASA and plavix for secondary stroke prevention and for known left ICA stenosis -SSRI for motor recovery 3. Cardiac- c/u BP meds, including Lasix for LLE edema 4. - urinary retention slowly improving with addition of Flomax, d/c'd Ditropan and retention c/u to improve 5. GI- patient reporting nausea with meals which has improved since starting reglan, c/u but will change to prn 6. endo- c/u ISS and Levemir for DM 7. Psych- c/u Rozerem for insomnia 8. Hypokalemia- will recheck BMP today 9. Dispo- 920 to home, progressing towards goals Allergies Coded Allergies: warfarin (Verified Allergy, Intermediate, HEMATURIA, 12/04/18) Mvsbsmi-Tkb-Qix Reductase Inhibitor (Verified Allergy, Mild, STOMACH UPSET, 12/04/18) caffeine (Verified Allergy, Mild, GI UPSET, 12/04/18) hydrocodone (Verified Allergy, Mild, GI UPSET, 12/04/18) varenicline (Verified Adverse Reaction, Mild, nausea, 11/30/19) duloxetine (Verified Adverse Reaction, Unknown, SEIZURE/ NAUSEA, 12/04/18) Vital Signs Vital Signs Date Time Temp Pulse Resp B/P (MAP) Pulse Ox O2 Delivery O2 Flow Rate FiO2 12/08/19 08:44 82 154/84 12/08/19 05:52 97.7 18 100 Room Air Microbiology Microbiology 11/30/19 Urine Culture - Final, Complete Current Medications Current Medications Current Medications Medications (Trade) Dose Ordered Sig/Dayana Route PRN Reason Start Time Stop Time Status Last Admin Dose Admin Acetaminophen (Tylenol Tab) 650 mg Q4HP PRN PO PAIN OR FEVER 12/01/19 13:00 12/08/19 11:58 Acetaminophen (Tylenol Tab) 975 mg QID PO 11/30/19 21:00 12/01/19 12:57 DC 12/01/19 12:07 Acetaminophen (Tylenol Tab) 1,000 mg Q8H PO 11/30/19 22:00 11/30/19 13:56 DC Albuterol/ Ipratropium (Duoneb (Ipr 0.5mg/Alb 2.5mg)) 3 ml RQ8H INH 11/30/19 16:00 12/07/19 13:16 Aspirin (Aspirin Chewable) 81 mg DAILY PO 12/01/19 09:00 12/08/19 08:41 Atenolol (Tenormin) 100 mg DAILY PO 12/01/19 09:00 12/08/19 08:44 Atorvastatin Calcium (Lipitor) 80 mg DAILY PO 12/01/19 09:00 12/08/19 08:42 Baclofen (Lioresal) 5 mg ASDIRECTED PRN PO spasm/pain 12/01/19 14:45 12/08/19 01:38 Clopidogrel Bisulfate (PLAVix) 75 mg DAILY PO 12/01/19 09:00 12/08/19 08:43 Dextrose (Dextrose 50%) 25 ml ASDIRECTED PRN IV SEE LABEL COMMENTS 11/30/19 09:30 Docusate Sodium (Colace) 100 mg BID PO 11/30/19 21:00 12/07/19 08:28 Doxazosin Mesylate (Cardura) 2 mg DAILY PO 12/01/19 09:00 12/08/19 08:42 Enoxaparin Sodium (Lovenox) 40 mg DAILY SC 12/01/19 09:00 12/08/19 08:44 EZETIMIBE (Zetia) 10 mg DAILY PO 12/01/19 09:00 12/08/19 08:44 Fluoxetine HCl (PROzac) 20 mg DAILY PO 12/01/19 09:00 12/08/19 08:42 Furosemide (Lasix) 20 mg DAILY PO 12/01/19 09:00 12/08/19 08:43 Gabapentin (Neurontin) 600 mg TID PO 11/30/19 21:00 12/08/19 08:43 Glucagon (Glucagon) 1 mg ASDIRECTED PRN SC SEE LABEL COMMENTS 11/30/19 09:30 Glucose (Glucose) 16GM'S (4 TABS) ASDIRECTED PRN PO SEE LABEL COMMENTS 11/30/19 09:30 Guaifenesin (Robitussin Tab) 400 mg TID PO 11/30/19 21:00 12/08/19 08:42 Home Med (Med Rec Complete!) ASDIRECTED XX 11/30/19 09:30 11/30/19 09:26 DC Insulin Detemir (Levemir Insulin) 5 units QHS SC 11/30/19 21:00 12/06/19 20:38 Insulin Human Lispro (HumaLOG INSULIN) See Protocol Table AC SC 11/30/19 12:00 12/08/19 11:58 Insulin Human Lispro (HumaLOG INSULIN) See Protocol Table QHS SC 11/30/19 21:00 Lidocaine (Lidoderm Patch) 1 patch QHS TD 12/01/19 21:00 12/07/19 20:02 Lisinopril (Prinivil) 40 mg DAILY PO 12/01/19 09:00 12/08/19 08:44 Metoclopramide HCl (Reglan) 5 mg AC PO 12/01/19 07:30 12/08/19 11:57 Multivitamins (Theragram-M) 1 tab DAILY PO 12/01/19 09:00 12/08/19 08:43 Nicotine (Nicoderm Cq 21mg) 1 patch DAILY TD 12/01/19 09:00 12/08/19 08:41 Non-Formulary Medication ( See Comment Field Below ) REMOVE LIDODERM PATCH DAILY XX 12/02/19 09:00 12/08/19 08:44 Oxybutynin Chloride (Ditropan Xl) 5 mg DAILY PO 12/01/19 09:00 12/01/19 12:57 DC 12/01/19 08:14 Oxycodone HCl (Roxicodone, Oxyir) 2.5 mg Q4HP PRN PO PAIN >7/10 12/06/19 10:00 12/08/19 03:23 Oxycodone HCl (Roxicodone, Oxyir) 2.56 mg Q4HP PRN PO PAIN >7/10 11/30/19 09:30 12/06/19 09:53 DC 12/05/19 07:03 Pantoprazole Sodium (Protonix) 40 mg DAILY PO 12/01/19 09:00 12/08/19 08:43 Ramelteon (Rozerem) 8 mg QHS PO 11/30/19 21:00 12/07/19 20:01 Senna (Senokot) 1 tab QHS PO 11/30/19 21:00 12/06/19 20:39 Sodium Biphosphate/ Sodium Phosphate (Fleet Enema) 1 ea Q3DP PRN [place] CONSTIPATION 12/05/19 22:00 12/05/19 22:09 Tamsulosin HCl (Flomax) 0.8 mg DAILY PO 12/01/19 09:00 12/08/19 08:43 Thiamine HCl (Thiamine HCl) 100 mg DAILY PO 12/01/19 09:00 12/08/19 08:44 KIMI JENKINS MD Dec 08, 2019 12:46
[2019-12-08 14:00] VITALS: BP 107/55
[2019-12-08 14:30] LABS: BLOOD UREA NITROGEN 7 MG/DL (7-18); CALCIUM LEVEL 7.1 MG/DL (8.8-10.2); CARBON DIOXIDE LEVEL 25 MEQ/L (21-32); CHLORIDE LEVEL 106 MEQ/L (98-107); CREATININE FOR GFR 0.75 MG/DL (0.70-1.30); GLOMERULAR FILTRATION RATE > 60.0 (>49); GLUCOSE, FASTING 233 MG/DL (70-100); POTASSIUM SERUM 3.1 MEQ/L (3.5-5.1); SODIUM LEVEL 139 MEQ/L (136-145)
[2019-12-08] MEDS ORDERED: POTASSIUM CHLORIDE 10 MEQ SR TABLET PO ONE (15:00)
[2019-12-08 20:16] VITALS: BP 115/60
[2019-12-08] MEDS: SENNA 8.6 MG TAB (SENOKOT) PO SCH (21:00)
[2019-12-08] MEDS: RAMELTEON 8 MG TAB (ROZEREM) PO SCH (21:14)
[2019-12-08] MEDS: POTASSIUM CHLORIDE 10 MEQ SR TABLET PO SCH (21:14)
[2019-12-08] MEDS: LIDOCAINE 5% (LIDODERM) PATCH TD SCH (21:15)
[2019-12-08] MEDS: LEVEMIR (INSULIN DETEMIR) 1 UNITS/0.01ML SC SCH (21:15)
[2019-12-09] MEDS: ACETAMINOPHEN TAB 650MG DOSE (2X325MG) PO PRN ×5 (01:33→21:04)
[2019-12-09 06:00] VITALS: BP 150/81
[2019-12-09] MEDS: IPRATROPIUM 0.5MG/ALBUTEROL 2.5MG INH SOL UD 3ML (DUONEB) INH SCH ×3 (06:27→18:07)
[2019-12-09] MEDS: HumaLOG INSULIN (NovoLOG) PER UNIT SC SCH ×4 (07:32→21:00)
[2019-12-09] MEDS: REMEDY PHYTOPLEX Z-GUARD PASTE 113GM TUBE (FROM STOREROOM PRODUCT) TOP SCH ×3 (09:00→21:09)
[2019-12-09] MEDS: DOCUSATE SODIUM 100 MG CAP PO SCH ×2 (09:00→21:00)
[2019-12-09] MEDS: POTASSIUM CHLORIDE 10 MEQ SR TABLET PO SCH ×2 (09:35→21:05)
[2019-12-09] MEDS: GABAPENTIN 300 MG CAP PO SCH ×3 (09:35→21:05)
[2019-12-09] MEDS: ENOXAPARIN 40MG/0.4ML SYRINGE (J1650 PER 10MG) SC SCH (09:35)
[2019-12-09] MEDS: PANTOPRAZOLE 40MG TAB (PROTONIX) PO SCH (09:35)
[2019-12-09] MEDS: ATORVASTATIN 20 MG TAB PO SCH (09:35)
[2019-12-09] MEDS: FLUoxetine 20 MG CAP PO SCH (09:35)
[2019-12-09] MEDS: THIAMINE 100 MG TAB PO SCH (09:36)
[2019-12-09] MEDS: FUROSEMIDE 20 MG TAB PO SCH (09:36)
[2019-12-09] MEDS: guaiFENesin 200 MG TAB PO SCH ×3 (09:36→21:05)
[2019-12-09] MEDS: MULTIVITAMINS/MINERALS THERAP 1 TAB PO SCH (09:36)
[2019-12-09] MEDS: ASPIRIN 81 MG CHEW TABLET PO SCH (09:36)
[2019-12-09] MEDS: CLOPIDOGREL 75 MG TAB PO SCH (09:36)
[2019-12-09] MEDS: TAMSULOSIN 0.4 MG CAP PO SCH (09:36)
[2019-12-09] MEDS: DOXAZOSIN MESYLATE 1 MG TAB PO SCH (09:38)
[2019-12-09] MEDS: atenoloL 50 MG TAB PO SCH (09:39)
[2019-12-09] MEDS: lisinopriL 40 MG TAB PO SCH (09:39)
[2019-12-09] MEDS: EZETIMIBE 10 MG TAB (ZETIA) PO SCH (09:39)
[2019-12-09] MEDS: NICOTINE 21MG/24HR 1 EA TRANSDERMAL TD SCH (09:40)
[2019-12-09] MEDS: **NOTE PATIENT COMMENT** MISC XX SCH (09:40)
[2019-12-09 14:00] VITALS: BP 150/72
[2019-12-09 16:05] LABS: BLOOD UREA NITROGEN 6 MG/DL (7-18); CALCIUM LEVEL 7.4 MG/DL (8.8-10.2); CARBON DIOXIDE LEVEL 25 MEQ/L (21-32); CHLORIDE LEVEL 109 MEQ/L (98-107); CREATININE FOR GFR 0.75 MG/DL (0.70-1.30); GLOMERULAR FILTRATION RATE > 60.0 (>49); GLUCOSE, FASTING 178 MG/DL (70-100); POTASSIUM SERUM 3.9 MEQ/L (3.5-5.1); SODIUM LEVEL 140 MEQ/L (136-145)
--- NOTE | 2019-12-09 17:05 | IPNPDOC ---
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 He is agreeable to working on commode transfers to more safely transfer in the middle of the night if he has an urgent need to use the bathroom. ROS Denies fever, chills, easy bruising, tremor, chest pain, difficulty breathing, dysphagia, rhinorrhea, rash, diarrhea/constipation, +urinary retention (improving) MEds- see EMR OBJECTIVE: VITAL SIGNS: Please see below. PHYSICAL EXAMINATION: GENERAL: well developed, sitting up in chair, NAD HEENT: Normocephalic, atraumatic PERRL, EOMI CARDIOVASCULAR: S1, S2, rrr LUNGS: CTA ABDOMEN: Soft, nontender, nondistended. Normoactive bowel sounds throughout MUSCULOSKELETAL: MMT: 5/5 strength bilat UE, >3/5 left LE (limited by recent surgery), 5/5 right hip flexion NEUROLOGICAL: Alert and oriented times three. Answers all question appropriately SKIN: left hip incision c/d/i ASSESSMENT AND PLAN: 64M pmh right AKA with left hip fracture and left MCA infarct 1. 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 Neuro- s/p left MCA infarct s/p TPA, c/u ASA and plavix for secondary stroke prevention and for known left ICA stenosis -SSRI for motor recovery 3. Cardiac- c/u BP meds, including Lasix for LLE edema (improving) 4. - urinary retention slowly improving with addition of Flomax, d/c'd Ditropan and retention c/u to improve 5. GI- patient reporting nausea with meals which ahs improved, Reglan switched to prn 6. endo- c/u ISS and Levemir for DM 7. Psych- c/u Rozerem for insomnia 8. Hypokalemia- resolved, will c/u to monitor 9. Dispo- 920 to home, progressing towards goals Allergies Coded Allergies: warfarin (Verified Allergy, Intermediate, HEMATURIA, 12/04/18) Dlbdjst-Ime-Wpx Reductase Inhibitor (Verified Allergy, Mild, STOMACH UPSET, 12/04/18) caffeine (Verified Allergy, Mild, GI UPSET, 12/04/18) hydrocodone (Verified Allergy, Mild, GI UPSET, 12/04/18) varenicline (Verified Adverse Reaction, Mild, nausea, 11/30/19) duloxetine (Verified Adverse Reaction, Unknown, SEIZURE/ NAUSEA, 12/04/18) Vital Signs Vital Signs Date Time Temp Pulse Resp B/P (MAP) Pulse Ox O2 Delivery O2 Flow Rate FiO2 12/09/19 14:00 97.1 87 18 150/72 (98) 99 Room Air Laboratory Data CBC/BMP Laboratory Tests 12/09/19 14:23 Labs 24H Laboratory Tests 2 12/09/19 14:23: Anion Gap 6L, Glomerular Filtration Rate > 60.0, Calcium Level 7.4L Microbiology Microbiology 11/30/19 Urine Culture - Final, Complete Current Medications Current Medications Current Medications Medications (Trade) Dose Ordered Sig/Dayana Route PRN Reason Start Time Stop Time Status Last Admin Dose Admin Acetaminophen (Tylenol Tab) 650 mg Q4HP PRN PO PAIN OR FEVER 12/01/19 13:00 12/09/19 15:07 Acetaminophen (Tylenol Tab) 975 mg QID PO 11/30/19 21:00 12/01/19 12:57 DC 12/01/19 12:07 Acetaminophen (Tylenol Tab) 1,000 mg Q8H PO 11/30/19 22:00 11/30/19 13:56 DC Albuterol/ Ipratropium (Duoneb (Ipr 0.5mg/Alb 2.5mg)) 3 ml RQ8H INH 11/30/19 16:00 12/08/19 15:32 Aspirin (Aspirin Chewable) 81 mg DAILY PO 12/01/19 09:00 12/09/19 09:36 Atenolol (Tenormin) 100 mg DAILY PO 12/01/19 09:00 12/09/19 09:39 Atorvastatin Calcium (Lipitor) 80 mg DAILY PO 12/01/19 09:00 12/09/19 09:35 Baclofen (Lioresal) 5 mg ASDIRECTED PRN PO spasm/pain 12/01/19 14:45 12/08/19 21:13 Clopidogrel Bisulfate (PLAVix) 75 mg DAILY PO 12/01/19 09:00 12/09/19 09:36 Dextrose (Dextrose 50%) 25 ml ASDIRECTED PRN IV SEE LABEL COMMENTS 11/30/19 09:30 Docusate Sodium (Colace) 100 mg BID PO 11/30/19 21:00 12/07/19 08:28 Doxazosin Mesylate (Cardura) 2 mg DAILY PO 12/01/19 09:00 12/09/19 09:38 Enoxaparin Sodium (Lovenox) 40 mg DAILY SC 12/01/19 09:00 12/09/19 09:35 EZETIMIBE (Zetia) 10 mg DAILY PO 12/01/19 09:00 12/09/19 09:39 Fluoxetine HCl (PROzac) 20 mg DAILY PO 12/01/19 09:00 12/09/19 09:35 Furosemide (Lasix) 20 mg DAILY PO 12/01/19 09:00 12/09/19 09:36 Gabapentin (Neurontin) 600 mg TID PO 11/30/19 21:00 12/09/19 15:07 Glucagon (Glucagon) 1 mg ASDIRECTED PRN SC SEE LABEL COMMENTS 11/30/19 09:30 Glucose (Glucose) 16GM'S (4 TABS) ASDIRECTED PRN PO SEE LABEL COMMENTS 11/30/19 09:30 Guaifenesin (Robitussin Tab) 400 mg TID PO 11/30/19 21:00 12/09/19 15:08 Home Med (Med Rec Complete!) ASDIRECTED XX 11/30/19 09:30 11/30/19 09:26 DC Insulin Detemir (Levemir Insulin) 5 units QHS SC 11/30/19 21:00 12/09/19 11:03 DC 12/08/19 21:15 Insulin Detemir (Levemir Insulin) 10 units QHS SC 12/09/19 21:00 Insulin Human Lispro (HumaLOG INSULIN) See Protocol Table AC SC 11/30/19 12:00 12/09/19 17:01 Insulin Human Lispro (HumaLOG INSULIN) See Protocol Table QHS SC 11/30/19 21:00 Lidocaine (Lidoderm Patch) 1 patch QHS TD 12/01/19 21:00 12/08/19 21:15 Lisinopril (Prinivil) 40 mg DAILY PO 12/01/19 09:00 12/09/19 09:39 Metoclopramide HCl (Reglan) 5 mg AC PO 12/01/19 07:30 12/08/19 12:43 DC 12/08/19 11:57 Metoclopramide HCl (Reglan) 5 mg AC PRN PO nausea 12/08/19 12:45 Multivitamins (Theragram-M) 1 tab DAILY PO 12/01/19 09:00 12/09/19 09:36 Nicotine (Nicoderm Cq 21mg) 1 patch DAILY TD 12/01/19 09:00 12/09/19 09:40 Non-Formulary Medication ( See Comment Field Below ) REMOVE LIDODERM PATCH DAILY XX 12/02/19 09:00 12/09/19 09:40 Oxybutynin Chloride (Ditropan Xl) 5 mg DAILY PO 12/01/19 09:00 12/01/19 12:57 DC 12/01/19 08:14 Oxycodone HCl (Roxicodone, Oxyir) 2.5 mg Q4HP PRN PO PAIN >7/10 12/06/19 10:00 12/08/19 12:43 DC 12/08/19 03:23 Oxycodone HCl (Roxicodone, Oxyir) 2.56 mg Q4HP PRN PO PAIN >7/10 11/30/19 09:30 12/06/19 09:53 DC 12/05/19 07:03 Pantoprazole Sodium (Protonix) 40 mg DAILY PO 12/01/19 09:00 12/09/19 09:35 Potassium Chloride (Micro-K Extencaps) 40 meq BID PO 12/08/19 21:00 12/09/19 09:35 Ramelteon (Rozerem) 8 mg QHS PO 11/30/19 21:00 12/08/19 21:14 Senna (Senokot) 1 tab QHS PO 11/30/19 21:00 12/06/19 20:39 Sodium Biphosphate/ Sodium Phosphate (Fleet Enema) 1 ea Q3DP PRN [place] CONSTIPATION 12/05/19 22:00 12/05/19 22:09 Tamsulosin HCl (Flomax) 0.8 mg DAILY PO 12/01/19 09:00 12/09/19 09:36 Thiamine HCl (Thiamine HCl) 100 mg DAILY PO 12/01/19 09:00 12/09/19 09:36 KIMI JENKINS MD Dec 09, 2019 17:05
[2019-12-09 20:00] VITALS: BP 125/72
[2019-12-09] MEDS: SENNA 8.6 MG TAB (SENOKOT) PO SCH (21:00)
[2019-12-09] MEDS: BACLOFEN 5MG PER 1/2 TABLET PO PRN (21:03)
[2019-12-09] MEDS: LEVEMIR (INSULIN DETEMIR) 1 UNITS/0.01ML SC SCH (21:04)
[2019-12-09] MEDS: LIDOCAINE 5% (LIDODERM) PATCH TD SCH (21:04)
[2019-12-09] MEDS: RAMELTEON 8 MG TAB (ROZEREM) PO SCH (21:05)
[2019-12-10] MEDS: ACETAMINOPHEN TAB 650MG DOSE (2X325MG) PO PRN ×3 (01:14→21:26)
[2019-12-10 05:59] VITALS: BP 152/84
[2019-12-10] MEDS: HumaLOG INSULIN (NovoLOG) PER UNIT SC SCH ×4 (07:30→21:00)
[2019-12-10] MEDS: IPRATROPIUM 0.5MG/ALBUTEROL 2.5MG INH SOL UD 3ML (DUONEB) INH SCH ×2 (08:00→14:29)
[2019-12-10] MEDS: PANTOPRAZOLE 40MG TAB (PROTONIX) PO SCH (08:49)
[2019-12-10] MEDS: guaiFENesin 200 MG TAB PO SCH ×3 (08:50→21:25)
[2019-12-10] MEDS: CLOPIDOGREL 75 MG TAB PO SCH (08:50)
[2019-12-10] MEDS: GABAPENTIN 300 MG CAP PO SCH ×3 (08:50→21:26)
[2019-12-10] MEDS: FLUoxetine 20 MG CAP PO SCH (08:50)
[2019-12-10] MEDS: ASPIRIN 81 MG CHEW TABLET PO SCH (08:50)
[2019-12-10] MEDS: ATORVASTATIN 20 MG TAB PO SCH (08:50)
[2019-12-10] MEDS: THIAMINE 100 MG TAB PO SCH (08:50)
[2019-12-10] MEDS: MULTIVITAMINS/MINERALS THERAP 1 TAB PO SCH (08:50)
[2019-12-10] MEDS: POTASSIUM CHLORIDE 10 MEQ SR TABLET PO SCH ×2 (08:50→21:25)
[2019-12-10] MEDS: FUROSEMIDE 20 MG TAB PO SCH (08:50)
[2019-12-10] MEDS: NICOTINE 21MG/24HR 1 EA TRANSDERMAL TD SCH (08:51)
[2019-12-10] MEDS: TAMSULOSIN 0.4 MG CAP PO SCH (08:51)
[2019-12-10] MEDS: ENOXAPARIN 40MG/0.4ML SYRINGE (J1650 PER 10MG) SC SCH (08:51)
[2019-12-10] MEDS: atenoloL 50 MG TAB PO SCH (08:53)
[2019-12-10] MEDS: EZETIMIBE 10 MG TAB (ZETIA) PO SCH (08:53)
[2019-12-10] MEDS: lisinopriL 40 MG TAB PO SCH (08:53)
[2019-12-10] MEDS: DOXAZOSIN MESYLATE 1 MG TAB PO SCH (08:53)
[2019-12-10] MEDS: REMEDY PHYTOPLEX Z-GUARD PASTE 113GM TUBE (FROM STOREROOM PRODUCT) TOP SCH ×3 (08:54→21:25)
[2019-12-10] MEDS: **NOTE PATIENT COMMENT** MISC XX SCH (08:54)
[2019-12-10] MEDS: DOCUSATE SODIUM 100 MG CAP PO SCH (09:00)
--- NOTE | 2019-12-10 10:15 | IPNPDOC ---
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 ROS Denies fever, chills, easy bruising, tremor, chest pain, difficulty breathing, dysphagia, rhinorrhea, rash, diarrhea/constipation, +urinary retention (improving) MEds- see EMR OBJECTIVE: VITAL SIGNS: Please see below. PHYSICAL EXAMINATION: GENERAL: well developed, sitting up in chair, NAD HEENT: Normocephalic, atraumatic PERRL, EOMI CARDIOVASCULAR: S1, S2, rrr LUNGS: CTA ABDOMEN: Soft, nontender, nondistended. Normoactive bowel sounds throughout MUSCULOSKELETAL: MMT: 5/5 strength bilat UE, >3/5 left LE (limited by recent surgery), 5/5 right hip flexion NEUROLOGICAL: Alert and oriented times three. Answers all question appropriately SKIN: left hip incision c/d/i ASSESSMENT AND PLAN: 64M pmh right AKA with left hip fracture and left MCA infarct 1. 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 Neuro- s/p left MCA infarct s/p TPA, c/u ASA and plavix for secondary stroke prevention and for known left ICA stenosis -SSRI for motor recovery 3. Cardiac- c/u BP meds, including Lasix for LLE edema (improving) 4. - urinary retention slowly improving with addition of Flomax, d/c'd Ditropan and retention c/u to improve-will f/u with urology on d/c 5. GI- patient reporting nausea with meals which ahs improved, Reglan switched to prn 6. endo- c/u ISS and Levemir for DM 7. Psych- c/u Rozerem for insomnia 8. Hypokalemia- resolved, will c/u to monitor 9. Dispo- 20 to home, progressing towards goals Allergies Coded Allergies: warfarin (Verified Allergy, Intermediate, HEMATURIA, 12/04/18) Bhccvto-Qdh-Zxw Reductase Inhibitor (Verified Allergy, Mild, STOMACH UPSET, 12/04/18) caffeine (Verified Allergy, Mild, GI UPSET, 12/04/18) hydrocodone (Verified Allergy, Mild, GI UPSET, 12/04/18) varenicline (Verified Adverse Reaction, Mild, nausea, 11/30/19) duloxetine (Verified Adverse Reaction, Unknown, SEIZURE/ NAUSEA, 12/04/18) Vital Signs Vital Signs Date Time Temp Pulse Resp B/P (MAP) Pulse Ox O2 Delivery O2 Flow Rate FiO2 12/10/19 08:53 124/58 12/10/19 08:53 62 12/10/19 05:59 98.0 18 97 Room Air Laboratory Data CBC/BMP Laboratory Tests 12/09/19 14:23 Labs 24H Laboratory Tests 2 12/09/19 14:23: Anion Gap 6L, Glomerular Filtration Rate > 60.0, Calcium Level 7.4L Microbiology Microbiology 11/30/19 Urine Culture - Final, Complete Current Medications Current Medications Current Medications Medications (Trade) Dose Ordered Sig/Dayana Route PRN Reason Start Time Stop Time Status Last Admin Dose Admin Acetaminophen (Tylenol Tab) 650 mg Q4HP PRN PO PAIN OR FEVER 12/01/19 13:00 12/10/19 05:15 Acetaminophen (Tylenol Tab) 975 mg QID PO 11/30/19 21:00 12/01/19 12:57 DC 12/01/19 12:07 Acetaminophen (Tylenol Tab) 1,000 mg Q8H PO 11/30/19 22:00 11/30/19 13:56 DC Albuterol/ Ipratropium (Duoneb (Ipr 0.5mg/Alb 2.5mg)) 3 ml RQ8H INH 11/30/19 16:00 12/09/19 18:07 Aspirin (Aspirin Chewable) 81 mg DAILY PO 12/01/19 09:00 12/10/19 08:50 Atenolol (Tenormin) 100 mg DAILY PO 12/01/19 09:00 12/10/19 08:53 Atorvastatin Calcium (Lipitor) 80 mg DAILY PO 12/01/19 09:00 12/10/19 08:50 Baclofen (Lioresal) 5 mg ASDIRECTED PRN PO spasm/pain 12/01/19 14:45 12/09/19 21:03 Clopidogrel Bisulfate (PLAVix) 75 mg DAILY PO 12/01/19 09:00 12/10/19 08:50 Dextrose (Dextrose 50%) 25 ml ASDIRECTED PRN IV SEE LABEL COMMENTS 11/30/19 09:30 Docusate Sodium (Colace) 100 mg BID PO 11/30/19 21:00 12/10/19 10:13 DC 12/07/19 08:28 Doxazosin Mesylate (Cardura) 2 mg DAILY PO 12/01/19 09:00 12/10/19 08:53 Enoxaparin Sodium (Lovenox) 40 mg DAILY SC 12/01/19 09:00 12/10/19 08:51 EZETIMIBE (Zetia) 10 mg DAILY PO 12/01/19 09:00 12/10/19 08:53 Fluoxetine HCl (PROzac) 20 mg DAILY PO 12/01/19 09:00 12/10/19 08:50 Furosemide (Lasix) 20 mg DAILY PO 12/01/19 09:00 12/10/19 08:50 Gabapentin (Neurontin) 600 mg TID PO 11/30/19 21:00 12/10/19 08:50 Glucagon (Glucagon) 1 mg ASDIRECTED PRN SC SEE LABEL COMMENTS 11/30/19 09:30 Glucose (Glucose) 16GM'S (4 TABS) ASDIRECTED PRN PO SEE LABEL COMMENTS 11/30/19 09:30 Guaifenesin (Robitussin Tab) 400 mg TID PO 11/30/19 21:00 12/10/19 08:50 Home Med (Med Rec Complete!) ASDIRECTED XX 11/30/19 09:30 11/30/19 09:26 DC Insulin Detemir (Levemir Insulin) 5 units QHS SC 11/30/19 21:00 12/09/19 11:03 DC 12/08/19 21:15 Insulin Detemir (Levemir Insulin) 10 units QHS SC 12/09/19 21:00 12/09/19 21:04 Insulin Human Lispro (HumaLOG INSULIN) See Protocol Table AC SC 11/30/19 12:00 12/09/19 17:01 Insulin Human Lispro (HumaLOG INSULIN) See Protocol Table QHS SC 11/30/19 21:00 Lidocaine (Lidoderm Patch) 1 patch QHS TD 12/01/19 21:00 12/09/19 21:04 Lisinopril (Prinivil) 40 mg DAILY PO 12/01/19 09:00 12/10/19 08:53 Metoclopramide HCl (Reglan) 5 mg AC PO 12/01/19 07:30 12/08/19 12:43 DC 12/08/19 11:57 Metoclopramide HCl (Reglan) 5 mg AC PRN PO nausea 12/08/19 12:45 Multivitamins (Theragram-M) 1 tab DAILY PO 12/01/19 09:00 12/10/19 08:50 Nicotine (Nicoderm Cq 21mg) 1 patch DAILY TD 12/01/19 09:00 12/10/19 08:51 Non-Formulary Medication ( See Comment Field Below ) REMOVE LIDODERM PATCH DAILY XX 12/02/19 09:00 12/10/19 08:54 Oxybutynin Chloride (Ditropan Xl) 5 mg DAILY PO 12/01/19 09:00 12/01/19 12:57 DC 12/01/19 08:14 Oxycodone HCl (Roxicodone, Oxyir) 2.5 mg Q4HP PRN PO PAIN >7/10 12/06/19 10:00 12/08/19 12:43 DC 12/08/19 03:23 Oxycodone HCl (Roxicodone, Oxyir) 2.56 mg Q4HP PRN PO PAIN >7/10 11/30/19 09:30 12/06/19 09:53 DC 12/05/19 07:03 Pantoprazole Sodium (Protonix) 40 mg DAILY PO 12/01/19 09:00 12/10/19 08:49 Potassium Chloride (Micro-K Extencaps) 40 meq BID PO 12/08/19 21:00 12/10/19 08:50 Ramelteon (Rozerem) 8 mg QHS PO 11/30/19 21:00 12/09/19 21:05 Senna (Senokot) 1 tab QHS PO 11/30/19 21:00 12/10/19 10:13 DC 12/06/19 20:39 Sodium Biphosphate/ Sodium Phosphate (Fleet Enema) 1 ea Q3DP PRN [place] CONSTIPATION 12/05/19 22:00 12/05/19 22:09 Tamsulosin HCl (Flomax) 0.8 mg DAILY PO 12/01/19 09:00 12/10/19 08:51 Thiamine HCl (Thiamine HCl) 100 mg DAILY PO 12/01/19 09:00 12/10/19 08:50 KIMI JENKINS MD Dec 10, 2019 10:15
[2019-12-10] MEDS: NICOTINE 14 MG/24 HR TRANSDERMAL TD SCH (12:00)
[2019-12-10] MEDS: FAMOTIDINE 20 MG TAB PO SCH (12:12)
[2019-12-10 13:25] LABS: BASO % 0.6 % (0.0-1.0); EOS # 0.3 10^3/uL (0.0-0.5); EOS % 4.3 % (0.0-3.0); HEMATOCRIT 24.8 % (42.0-52.0); HEMOGLOBIN 8.1 g/dl (13.5-17.5); LYMPH # 1.4 10^3/uL (1.5-5.0); MEAN CORPUSCULAR HEMOGLOBIN 30.6 pg (27.0-33.0); MEAN CORPUSCULAR HGB CONC 32.7 g/dl (32.0-36.5); MEAN CORPUSCULAR VOLUME 93.6 fl (80.0-96.0); MONO # 0.6 10^3/uL (0.0-0.8); MONO % 9.5 % (0.0-5.0); NEUTROPHILS # 4.3 10^3/uL (1.5-8.5); NEUTROPHILS % 64.3 % (36.0-66.0); PLATELET COUNT, AUTOMATED 274 10^3/uL (150-450); RED BLOOD COUNT 2.65 10^6/uL (4.30-6.10); WHITE BLOOD COUNT 6.7 10^3/uL (4.0-10.0)
[2019-12-10 13:52] LABS: BLOOD UREA NITROGEN 7 MG/DL (7-18); CALCIUM LEVEL 7.1 MG/DL (8.8-10.2); CARBON DIOXIDE LEVEL 24 MEQ/L (21-32); CHLORIDE LEVEL 109 MEQ/L (98-107); CREATININE FOR GFR 0.58 MG/DL (0.70-1.30); GLOMERULAR FILTRATION RATE > 60.0 (>49); GLUCOSE, FASTING 139 MG/DL (70-100); POTASSIUM SERUM 3.8 MEQ/L (3.5-5.1); SODIUM LEVEL 141 MEQ/L (136-145)
[2019-12-10 14:00] VITALS: BP 167/68
[2019-12-10 20:00] VITALS: BP 118/58
[2019-12-10] MEDS: LIDOCAINE 5% (LIDODERM) PATCH TD SCH (21:25)
[2019-12-10] MEDS: RAMELTEON 8 MG TAB (ROZEREM) PO SCH (21:25)
[2019-12-10] MEDS: BACLOFEN 5MG PER 1/2 TABLET PO PRN (21:31)
[2019-12-10] MEDS: LEVEMIR (INSULIN DETEMIR) 1 UNITS/0.01ML SC SCH (21:32)
[2019-12-11] MEDS: ACETAMINOPHEN TAB 650MG DOSE (2X325MG) PO PRN ×5 (02:49→20:25)
[2019-12-11 06:00] VITALS: BP 170/68
[2019-12-11] MEDS: IPRATROPIUM 0.5MG/ALBUTEROL 2.5MG INH SOL UD 3ML (DUONEB) INH SCH ×3 (07:13→16:00)
[2019-12-11] MEDS: HumaLOG INSULIN (NovoLOG) PER UNIT SC SCH ×4 (07:20→20:24)
[2019-12-11] MEDS: NICOTINE 14 MG/24 HR TRANSDERMAL TD SCH (07:31)
[2019-12-11] MEDS: THIAMINE 100 MG TAB PO SCH (07:32)
[2019-12-11] MEDS: MULTIVITAMINS/MINERALS THERAP 1 TAB PO SCH (07:32)
[2019-12-11] MEDS: ATORVASTATIN 20 MG TAB PO SCH (07:32)
[2019-12-11] MEDS: EZETIMIBE 10 MG TAB (ZETIA) PO SCH (07:32)
[2019-12-11] MEDS: lisinopriL 40 MG TAB PO SCH (07:32)
[2019-12-11] MEDS: DOXAZOSIN MESYLATE 1 MG TAB PO SCH (07:32)
[2019-12-11] MEDS: atenoloL 50 MG TAB PO SCH (07:33)
[2019-12-11] MEDS: POTASSIUM CHLORIDE 10 MEQ SR TABLET PO SCH ×2 (07:33→20:26)
[2019-12-11] MEDS: GABAPENTIN 300 MG CAP PO SCH ×3 (07:33→20:25)
[2019-12-11] MEDS: FUROSEMIDE 20 MG TAB PO SCH (07:33)
[2019-12-11] MEDS: CLOPIDOGREL 75 MG TAB PO SCH (07:33)
[2019-12-11] MEDS: FLUoxetine 20 MG CAP PO SCH (07:33)
[2019-12-11] MEDS: TAMSULOSIN 0.4 MG CAP PO SCH (07:33)
[2019-12-11] MEDS: ASPIRIN 81 MG CHEW TABLET PO SCH (07:33)
[2019-12-11] MEDS: ENOXAPARIN 40MG/0.4ML SYRINGE (J1650 PER 10MG) SC SCH (07:34)
[2019-12-11] MEDS: REMEDY PHYTOPLEX Z-GUARD PASTE 113GM TUBE (FROM STOREROOM PRODUCT) TOP SCH ×3 (07:34→20:26)
[2019-12-11] MEDS: guaiFENesin 200 MG TAB PO SCH ×3 (07:34→20:25)
[2019-12-11] MEDS: **NOTE PATIENT COMMENT** MISC XX SCH (07:34)
[2019-12-11] MEDS: metFORMIN (GLUCOPHAGE) 500 MG TAB PO SCH ×2 (08:00→17:04)
[2019-12-11] MEDS: FAMOTIDINE 20 MG TAB PO SCH (11:49)
[2019-12-11 14:00] VITALS: BP 108/53
[2019-12-11 20:00] VITALS: BP 136/70
[2019-12-11] MEDS: LIDOCAINE 5% (LIDODERM) PATCH TD SCH (20:24)
[2019-12-11] MEDS: BACLOFEN 5MG PER 1/2 TABLET PO PRN (20:25)
[2019-12-11] MEDS: RAMELTEON 8 MG TAB (ROZEREM) PO SCH (20:25)
[2019-12-12] MEDS: ACETAMINOPHEN TAB 650MG DOSE (2X325MG) PO PRN ×4 (01:44→21:28)
[2019-12-12 06:32] VITALS: BP 152/80
[2019-12-12] MEDS: NICOTINE 14 MG/24 HR TRANSDERMAL TD SCH (08:33)
[2019-12-12] MEDS: HumaLOG INSULIN (NovoLOG) PER UNIT SC SCH ×4 (08:33→21:00)
[2019-12-12] MEDS: ENOXAPARIN 40MG/0.4ML SYRINGE (J1650 PER 10MG) SC SCH (08:34)
[2019-12-12] MEDS: lisinopriL 40 MG TAB PO SCH (08:34)
[2019-12-12] MEDS: THIAMINE 100 MG TAB PO SCH (08:34)
[2019-12-12] MEDS: guaiFENesin 200 MG TAB PO SCH ×3 (08:34→21:03)
[2019-12-12] MEDS: ATORVASTATIN 20 MG TAB PO SCH (08:35)
[2019-12-12] MEDS: TAMSULOSIN 0.4 MG CAP PO SCH (08:35)
[2019-12-12] MEDS: POTASSIUM CHLORIDE 10 MEQ SR TABLET PO SCH ×3 (08:35→21:02)
[2019-12-12] MEDS: FUROSEMIDE 20 MG TAB PO SCH (08:35)
[2019-12-12] MEDS: metFORMIN (GLUCOPHAGE) 500 MG TAB PO SCH ×2 (08:35→17:15)
[2019-12-12] MEDS: EZETIMIBE 10 MG TAB (ZETIA) PO SCH (08:35)
[2019-12-12] MEDS: CLOPIDOGREL 75 MG TAB PO SCH (08:35)
[2019-12-12] MEDS: ASPIRIN 81 MG CHEW TABLET PO SCH (08:36)
[2019-12-12] MEDS: DOXAZOSIN MESYLATE 1 MG TAB PO SCH (08:36)
[2019-12-12] MEDS: FLUoxetine 20 MG CAP PO SCH (08:37)
[2019-12-12] MEDS: MULTIVITAMINS/MINERALS THERAP 1 TAB PO SCH (08:37)
[2019-12-12] MEDS: atenoloL 50 MG TAB PO SCH (08:37)
[2019-12-12] MEDS: GABAPENTIN 300 MG CAP PO SCH ×3 (08:37→21:02)
[2019-12-12] MEDS: **NOTE PATIENT COMMENT** MISC XX SCH (08:37)
[2019-12-12] MEDS: REMEDY PHYTOPLEX Z-GUARD PASTE 113GM TUBE (FROM STOREROOM PRODUCT) TOP SCH ×3 (08:37→21:00)
[2019-12-12] MEDS: FAMOTIDINE 20 MG TAB PO SCH (12:13)
[2019-12-12 14:00] VITALS: BP 136/78
[2019-12-12 20:00] VITALS: BP 139/72
[2019-12-12] MEDS: RAMELTEON 8 MG TAB (ROZEREM) PO SCH (21:03)
[2019-12-12] MEDS: LIDOCAINE 5% (LIDODERM) PATCH TD SCH (21:03)
[2019-12-12] MEDS: BACLOFEN 5MG PER 1/2 TABLET PO PRN (21:03)
[2019-12-12] MEDS: IPRATROPIUM 0.5MG/ALBUTEROL 2.5MG INH SOL UD 3ML (DUONEB) INH SCH ×2 (23:32)
[2019-12-13] MEDS: ACETAMINOPHEN TAB 650MG DOSE (2X325MG) PO PRN ×3 (01:34→20:30)
[2019-12-13 05:46] VITALS: BP 138/89
[2019-12-13] MEDS: HumaLOG INSULIN (NovoLOG) PER UNIT SC SCH ×4 (07:30→20:31)
[2019-12-13] MEDS: IPRATROPIUM 0.5MG/ALBUTEROL 2.5MG INH SOL UD 3ML (DUONEB) INH SCH ×2 (07:43→16:00)
[2019-12-13] MEDS: metFORMIN (GLUCOPHAGE) 500 MG TAB PO SCH (08:00)
[2019-12-13] MEDS: **NOTE PATIENT COMMENT** MISC XX SCH (09:00)
[2019-12-13] MEDS: MULTIVITAMINS/MINERALS THERAP 1 TAB PO SCH (09:00)
[2019-12-13] MEDS: POTASSIUM CHLORIDE 10 MEQ SR TABLET PO SCH ×2 (09:00→20:30)
[2019-12-13] MEDS: guaiFENesin 200 MG TAB PO SCH ×3 (09:00→20:30)
[2019-12-13] MEDS: THIAMINE 100 MG TAB PO SCH (09:00)
[2019-12-13 09:54] LABS: HEMATOCRIT 30.4 % (42.0-52.0); HEMOGLOBIN 9.6 g/dl (13.5-17.5); MEAN CORPUSCULAR HEMOGLOBIN 29.5 pg (27.0-33.0); MEAN CORPUSCULAR HGB CONC 31.6 g/dl (32.0-36.5); MEAN CORPUSCULAR VOLUME 93.5 fl (80.0-96.0); PLATELET COUNT, AUTOMATED 288 10^3/uL (150-450); RED BLOOD COUNT 3.25 10^6/uL (4.30-6.10); WHITE BLOOD COUNT 5.7 10^3/uL (4.0-10.0)
[2019-12-13] MEDS: FAMOTIDINE 20 MG TAB PO SCH (09:56)
[2019-12-13 10:26] LABS: BLOOD UREA NITROGEN 7 MG/DL (7-18); CALCIUM LEVEL 7.1 MG/DL (8.8-10.2); CARBON DIOXIDE LEVEL 23 MEQ/L (21-32); CHLORIDE LEVEL 103 MEQ/L (98-107); CREATININE FOR GFR 0.74 MG/DL (0.70-1.30); GLOMERULAR FILTRATION RATE > 60.0 (>49); GLUCOSE, FASTING 152 MG/DL (70-100); POTASSIUM SERUM 3.8 MEQ/L (3.5-5.1); SODIUM LEVEL 138 MEQ/L (136-145)
[2019-12-13] MEDS: ASPIRIN 81 MG CHEW TABLET PO SCH (12:33)
[2019-12-13] MEDS: DOXAZOSIN MESYLATE 1 MG TAB PO SCH (12:34)
[2019-12-13] MEDS: ENOXAPARIN 40MG/0.4ML SYRINGE (J1650 PER 10MG) SC SCH (12:35)
[2019-12-13] MEDS: FUROSEMIDE 20 MG TAB PO SCH (12:36)
[2019-12-13] MEDS: atenoloL 50 MG TAB PO SCH (12:36)
[2019-12-13] MEDS: TAMSULOSIN 0.4 MG CAP PO SCH (12:36)
[2019-12-13] MEDS: FLUoxetine 20 MG CAP PO SCH (12:37)
[2019-12-13] MEDS: lisinopriL 40 MG TAB PO SCH (12:37)
[2019-12-13] MEDS: GABAPENTIN 300 MG CAP PO SCH ×3 (12:37→20:28)
[2019-12-13] MEDS: EZETIMIBE 10 MG TAB (ZETIA) PO SCH (12:37)
[2019-12-13] MEDS: CLOPIDOGREL 75 MG TAB PO SCH (12:37)
[2019-12-13] MEDS: NICOTINE 14 MG/24 HR TRANSDERMAL TD SCH (12:38)
[2019-12-13] MEDS: REMEDY PHYTOPLEX Z-GUARD PASTE 113GM TUBE (FROM STOREROOM PRODUCT) TOP SCH ×3 (12:38→20:28)
[2019-12-13] MEDS: ATORVASTATIN 20 MG TAB PO SCH (12:38)
[2019-12-13 14:00] VITALS: BP 152/68
--- NOTE | 2019-12-13 17:08 | REPVR ---
PROCEDURE INFORMATION: Exam: US Chest Exam date and time: 12/13/2019 3:10 PM Age: 64 years old Clinical indication: Mass, lump, or swelling in the chest; Prior surgery; Surgery date: 1-6 months; Surgery type: Bpg place chest / axillary area; Additional info: R/O abscess or mass on chest TECHNIQUE: Imaging protocol: Real time ultrasound of the chest was performed with image documentation. COMPARISON: [place] PORTABLE CHEST X-RAY 12/06/2018 2:44 PM FINDINGS: Lungs: Not evaluated. Pleural space: Not evaluated. Right axillary, clavicular and flank region: Patient is status post an axillary bifemoral bypass graft. Fluid surrounds the graft at the level of the right clavicle and along the right flank region measuring 10.4 x 4.6 x 12.4 cm. IMPRESSION: Patient is status post an axillary bifemoral bypass graft. Fluid surrounds the graft at the level of the right clavicle and along the right flank region measuring 10.4 x 4.6 x 12.4 cm. Finding may represent a postprocedural seroma/hematoma. No specific signs indicate abscess or demonstrated although infection is not absolutely excluded. Percutaneous image guided aspiration is feasible if clinically desired in order to characterized the fluid. Electronically signed by: Surendra Villalba On 12/13/2019 17:07:44 PM
[2019-12-13] MEDS: METOCLOPRAMIDE 5 MG TAB PO SCH (17:59)
[2019-12-13 20:00] VITALS: BP 148/73
[2019-12-13] MEDS: RAMELTEON 8 MG TAB (ROZEREM) PO SCH (20:28)
[2019-12-13] MEDS: BACLOFEN 5MG PER 1/2 TABLET PO PRN (20:28)
[2019-12-13] MEDS: LIDOCAINE 5% (LIDODERM) PATCH TD SCH (20:31)
[2019-12-14] MEDS: BACLOFEN 5MG PER 1/2 TABLET PO PRN (01:29)
[2019-12-14] MEDS: ACETAMINOPHEN TAB 650MG DOSE (2X325MG) PO PRN ×3 (01:30→10:27)
[2019-12-14 05:24] VITALS: BP 158/84
[2019-12-14] MEDS: IPRATROPIUM 0.5MG/ALBUTEROL 2.5MG INH SOL UD 3ML (DUONEB) INH SCH (07:11)
[2019-12-14] MEDS: HumaLOG INSULIN (NovoLOG) PER UNIT SC SCH ×2 (07:30→13:15)
[2019-12-14] MEDS: NICOTINE 14 MG/24 HR TRANSDERMAL TD SCH (07:52)
[2019-12-14 07:53] VITALS: BP 158/84
[2019-12-14] MEDS: atenoloL 50 MG TAB PO SCH (07:53)
[2019-12-14] MEDS: DOXAZOSIN MESYLATE 1 MG TAB PO SCH (07:57)
[2019-12-14] MEDS: TAMSULOSIN 0.4 MG CAP PO SCH (07:58)
[2019-12-14] MEDS: MULTIVITAMINS/MINERALS THERAP 1 TAB PO SCH (07:58)
[2019-12-14] MEDS: CLOPIDOGREL 75 MG TAB PO SCH (07:58)
[2019-12-14] MEDS: GABAPENTIN 300 MG CAP PO SCH (07:58)
[2019-12-14] MEDS: FUROSEMIDE 20 MG TAB PO SCH (07:58)
[2019-12-14] MEDS: ASPIRIN 81 MG CHEW TABLET PO SCH (07:58)
[2019-12-14] MEDS: THIAMINE 100 MG TAB PO SCH (07:58)
[2019-12-14] MEDS: FLUoxetine 20 MG CAP PO SCH (07:58)
[2019-12-14] MEDS: METOCLOPRAMIDE 5 MG TAB PO SCH ×2 (07:59→12:00)
[2019-12-14] MEDS: EZETIMIBE 10 MG TAB (ZETIA) PO SCH (07:59)
[2019-12-14] MEDS: lisinopriL 40 MG TAB PO SCH (07:59)
[2019-12-14] MEDS: ATORVASTATIN 20 MG TAB PO SCH (07:59)
[2019-12-14] MEDS: guaiFENesin 200 MG TAB PO SCH (08:00)
[2019-12-14] MEDS: POTASSIUM CHLORIDE 10 MEQ SR TABLET PO SCH (08:00)
[2019-12-14] MEDS: ENOXAPARIN 40MG/0.4ML SYRINGE (J1650 PER 10MG) SC SCH (08:00)
[2019-12-14] MEDS: **NOTE PATIENT COMMENT** MISC XX SCH (08:43)
[2019-12-14] MEDS: REMEDY PHYTOPLEX Z-GUARD PASTE 113GM TUBE (FROM STOREROOM PRODUCT) TOP SCH (08:43)
[2019-12-14] MEDS ORDERED: metFORMIN (GLUCOPHAGE) 500 MG TAB PO SCH (09:00)
[2019-12-14] MEDS ORDERED: DOXA1TAB41 PO (11:39)
[2019-12-14] MEDS ORDERED: GLUC500T PO (11:39)
[2019-12-14] MEDS ORDERED: NEUR600T PO (11:39)
[2019-12-14] MEDS ORDERED: LISI40TA PO (11:39)
[2019-12-14] MEDS ORDERED: FLOM0.4C39 PO (11:39)
[2019-12-14] MEDS ORDERED: EZET10TA21 PO (11:39)
[2019-12-14] MEDS ORDERED: ATOR80TA59 PO (11:39)
[2019-12-14] MEDS ORDERED: FLUO20CA22 PO (11:39)
[2019-12-14] MEDS ORDERED: OMEP40CA97 PO (11:39)
[2019-12-14] MEDS ORDERED: THIA100TA PO (11:39)
[2019-12-14] MEDS ORDERED: RAME8TAB2 PO (11:39)
[2019-12-14] MEDS ORDERED: KLOR10TA76 PO (11:39)
[2019-12-14] MEDS ORDERED: ATEN100T PO (11:39)
[2019-12-14] MEDS ORDERED: ASPI81CH8 PO (11:39)
[2019-12-14] MEDS ORDERED: CLOP75TA2 PO (11:39)
[2019-12-14] MEDS ORDERED: FURO20TA2 PO (11:42)
--- NOTE | 2019-12-14 11:57 | IPNPDOC ---
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 He feels ready to go home tomorrow. ROS Denies fever, chills, easy bruising, tremor, chest pain, difficulty breathing, dysphagia, rhinorrhea, rash, diarrhea/constipation, +urinary retention (improving) MEds- see EMR OBJECTIVE: VITAL SIGNS: Please see below. PHYSICAL EXAMINATION: GENERAL: well developed, sitting up in chair, NAD HEENT: Normocephalic, atraumatic PERRL, EOMI CARDIOVASCULAR: S1, S2, rrr LUNGS: CTA ABDOMEN: Soft, nontender, nondistended. Normoactive bowel sounds throughout MUSCULOSKELETAL: MMT: 5/5 strength bilat UE, >3/5 left LE (limited by recent surgery), 5/5 right hip flexion NEUROLOGICAL: Alert and oriented times three. Answers all question appropriately SKIN: left hip incision c/d/i, right upper chest wall circumscribed swelling, no TTP, no erythema/ warmth ASSESSMENT AND PLAN: 64M pmh right AKA with left hip fracture and left MCA infarct 1. 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 Neuro- s/p left MCA infarct s/p TPA, c/u ASA and plavix for secondary stroke prevention and for known left ICA stenosis -SSRI for motor recovery 3. Cardiac- c/u BP meds, including Lasix for LLE edema (improving) 4. - urinary retention slowly improving with addition of Flomax, d/c'd Ditropan and retention c/u to improve-will f/u with urology on d/c 5. GI- patient reporting nausea with meals which has improved, Reglan switched to prn 6. endo- c/u ISS and Levemir for DM, added back low dose metformin 7. Psych- c/u Rozerem for insomnia 8. Hypokalemia- resolved, will c/u to monitor 9. Vasc- s/p recent axillary-femoral bypass surgery with hematoma following tPA administration at [facility]- patient with increased swelling in his right upper chest- no fever, tenderness to palpation, erythema/warmth- US showed fluid collection most likley post-procedural seroma/hematoma, suspicion for abscess low at this time, will direct patient to seek further evaluation if lump becomes painful or if he develops fever, otherwise he will f/u with Dr. Quispe on d/c 10. Ortho - cervical ligamental sprain present on admission, c/u cervical collar when OOB and f/u ortho 9. Dispo- 12-14-19 to home, progressing towards goals Allergies Coded Allergies: warfarin (Verified Allergy, Intermediate, HEMATURIA, 12/04/18) Xfpymwk-Fnw-Llq Reductase Inhibitor (Verified Allergy, Mild, STOMACH UPSET, 12/04/18) caffeine (Verified Allergy, Mild, GI UPSET, 12/04/18) hydrocodone (Verified Allergy, Mild, GI UPSET, 12/04/18) varenicline (Verified Adverse Reaction, Mild, nausea, 11/30/19) duloxetine (Verified Adverse Reaction, Unknown, SEIZURE/ NAUSEA, 12/04/18) Vital Signs Vital Signs Date Time Temp Pulse Resp B/P (MAP) Pulse Ox O2 Delivery O2 Flow Rate FiO2 12/14/19 07:53 75 158/84 12/14/19 05:24 98.5 18 99 Room Air Current Medications Current Medications Current Medications Medications (Trade) Dose Ordered Sig/Dayana Route PRN Reason Start Time Stop Time Status Last Admin Dose Admin Acetaminophen (Tylenol Tab) 650 mg Q4HP PRN PO PAIN OR FEVER 12/01/19 13:00 12/14/19 10:27 Acetaminophen (Tylenol Tab) 975 mg QID PO 11/30/19 21:00 12/01/19 12:57 DC 12/01/19 12:07 Acetaminophen (Tylenol Tab) 1,000 mg Q8H PO 11/30/19 22:00 11/30/19 13:56 DC Albuterol/ Ipratropium (Duoneb (Ipr 0.5mg/Alb 2.5mg)) 3 ml RQ8H INH 11/30/19 16:00 12/11/19 07:13 Aspirin (Aspirin Chewable) 81 mg DAILY PO 12/01/19 09:00 12/14/19 07:58 Atenolol (Tenormin) 100 mg DAILY PO 12/01/19 09:00 12/14/19 07:53 Atorvastatin Calcium (Lipitor) 80 mg DAILY PO 12/01/19 09:00 12/14/19 07:59 Baclofen (Lioresal) 5 mg ASDIRECTED PRN PO spasm/pain 12/01/19 14:45 12/14/19 01:29 Clopidogrel Bisulfate (PLAVix) 75 mg DAILY PO 12/01/19 09:00 12/14/19 07:58 Dextrose (Dextrose 50%) 25 ml ASDIRECTED PRN IV SEE LABEL COMMENTS 11/30/19 09:30 Docusate Sodium (Colace) 100 mg BID PO 11/30/19 21:00 12/10/19 10:13 DC 12/07/19 08:28 Doxazosin Mesylate (Cardura) 2 mg DAILY PO 12/01/19 09:00 12/14/19 07:57 Enoxaparin Sodium (Lovenox) 40 mg DAILY SC 12/01/19 09:00 12/14/19 08:00 EZETIMIBE (Zetia) 10 mg DAILY PO 12/01/19 09:00 12/14/19 07:59 Famotidine (Pepcid) 40 mg DAILY@1200 PO 12/10/19 12:00 12/13/19 09:56 Fluoxetine HCl (PROzac) 20 mg DAILY PO 12/01/19 09:00 12/14/19 07:58 Furosemide (Lasix) 20 mg DAILY PO 12/01/19 09:00 12/14/19 07:58 Gabapentin (Neurontin) 600 mg TID PO 11/30/19 21:00 12/14/19 07:58 Glucagon (Glucagon) 1 mg ASDIRECTED PRN SC SEE LABEL COMMENTS 11/30/19 09:30 Glucose (Glucose) 16GM'S (4 TABS) ASDIRECTED PRN PO SEE LABEL COMMENTS 11/30/19 09:30 Guaifenesin (Robitussin Tab) 400 mg TID PO 11/30/19 21:00 12/12/19 21:03 Home Med (Med Rec Complete!) ASDIRECTED XX 11/30/19 09:30 11/30/19 09:26 DC Insulin Detemir (Levemir Insulin) 5 units QHS SC 11/30/19 21:00 12/09/19 11:03 DC 12/08/19 21:15 Insulin Detemir (Levemir Insulin) 10 units QHS SC 12/09/19 21:00 12/11/19 10:27 DC 12/10/19 21:32 Insulin Human Lispro (HumaLOG INSULIN) See Protocol Table AC SC 11/30/19 12:00 12/13/19 12:34 Insulin Human Lispro (HumaLOG INSULIN) See Protocol Table QHS SC 11/30/19 21:00 Lidocaine (Lidoderm Patch) 1 patch QHS TD 12/01/19 21:00 12/12/19 21:03 Lisinopril (Prinivil) 40 mg DAILY PO 12/01/19 09:00 12/14/19 07:59 Metformin HCl (Glucophage) 500 mg BID@ PO 12/11/19 08:00 12/13/19 14:25 DC 12/12/19 17:15 Metformin HCl (Glucophage) 500 mg DAILY PO 12/14/19 09:00 12/14/19 07:59 Metoclopramide HCl (Reglan) 5 mg AC PO 12/01/19 07:30 12/08/19 12:43 DC 12/08/19 11:57 Metoclopramide HCl (Reglan) 5 mg AC PO 12/13/19 17:30 12/14/19 07:59 Metoclopramide HCl (Reglan) 5 mg AC PRN PO nausea 12/08/19 12:45 12/13/19 17:27 DC 12/13/19 09:55 Miscellaneous (Unresolved Clarification Entry) SEE LABEL COMMENTS DAILY XX 12/13/19 09:00 12/13/19 10:32 DC Multivitamins (Theragram-M) 1 tab DAILY PO 12/01/19 09:00 12/14/19 07:58 Nicotine (Nicoderm Cq 14mg) 1 patch DAILY TD 12/10/19 12:00 12/14/19 07:52 Nicotine (Nicoderm Cq 21mg) 1 patch DAILY TD 12/01/19 09:00 12/10/19 11:41 DC 12/10/19 08:51 Non-Formulary Medication ( See Comment Field Below ) REMOVE LIDODERM PATCH DAILY XX 12/02/19 09:00 12/13/19 09:00 Oxybutynin Chloride (Ditropan Xl) 5 mg DAILY PO 12/01/19 09:00 12/01/19 12:57 DC 12/01/19 08:14 Oxycodone HCl (Roxicodone, Oxyir) 2.5 mg Q4HP PRN PO PAIN >7/10 12/06/19 10:00 12/08/19 12:43 DC 12/08/19 03:23 Oxycodone HCl (Roxicodone, Oxyir) 2.56 mg Q4HP PRN PO PAIN >7/10 11/30/19 09:30 12/06/19 09:53 DC 12/05/19 07:03 Pantoprazole Sodium (Protonix) 40 mg DAILY PO 12/01/19 09:00 12/10/19 11:41 DC 12/10/19 08:49 Potassium Chloride (Micro-K Extencaps) 40 meq BID PO 12/08/19 21:00 12/12/19 08:35 Ramelteon (Rozerem) 8 mg QHS PO 11/30/19 21:00 12/13/19 20:28 Senna (Senokot) 1 tab QHS PO 11/30/19 21:00 12/10/19 10:13 DC 12/06/19 20:39 Sodium Biphosphate/ Sodium Phosphate (Fleet Enema) 1 ea Q3DP PRN [place] CONSTIPATION 12/05/19 22:00 12/05/19 22:09 Tamsulosin HCl (Flomax) 0.8 mg DAILY PO 12/01/19 09:00 12/14/19 07:58 Thiamine HCl (Thiamine HCl) 100 mg DAILY PO 12/01/19 09:00 12/14/19 07:58 KIMI JENKINS MD Dec 14, 2019 11:57
[2019-12-14] MEDS: FAMOTIDINE 20 MG TAB PO SCH (13:14)
--- NOTE | 2020-01-10 15:52 | DSES ---
DATE OF ADMISSION: 11/25/2019 DATE OF DISCHARGE: 12/14/2019 CHIEF COMPLAINT/DISCHARGE DIAGNOSIS: Left hip fracture and stroke. HISTORY OF PRESENT ILLNESS: This is a 64-year-old man with a past medical history of embolic stroke of undetermined source, diabetes type 2, hyperlipidemia, hypertension, coronary artery disease (CAD) status post myocardial infarction (CO), right above-knee amputation (AKA), recent right axillary femoral bypass, who presented to [facility] on 11/17/2019 with right- sided weakness and aphasia and was given tPA. He then developed a large right chest wall hematoma and was started on aspirin and Plavix for a left middle cerebral artery (MCA) stroke and left internal carotid artery (ICA) stenosis. Cervical MRI showed C3, C4, C5-C6 ligamentous sprain and he was placed in a cervical (C) collar for 6 weeks. He also had a left hip fracture and underwent a hemiarthroplasty on 11/19/2019 with wound vacuum assisted closure (VAC), dressing to be removed 11/28/2019. He had notable dysphagia and was placed on a modified diet. He also had postoperative anemia and leukocytosis and significant impairments in mobility and activities of daily living (ADLs) and deemed medically appropriate for discharge to acute rehabilitation unit (ARU) 11/25/2019. PAST MEDICAL HISTORY: As per history of present illness (HPI). HOSPITAL COURSE: Patient was admitted and enrolled in a comprehensive physical therapy/occupational therapy (PT/OT), speech-language pathology program. He received 24-hour nursing supervision and weekly team meetings were held to discuss his progress. For his recent left MCA infarct, he was continued on aspirin and Plavix for secondary stroke prevention and started on a selective serotonin reuptake inhibitor (SSRI) for motor recovery. He had left lower extremity edema most likely due to diagnosis of chronic congestive heart failure (CHF) and also recent hip surgery for which he was placed on Lasix with overall improvement in his edema. Patient had urinary retention, urinalysis was negative, and he was started on Flomax, and his Ditropan was discontinued with overall improvement in his urinary output. Patient was started on Reglan for a period of time with meals for what was thought to be gastroparesis in the setting of diabetes and then was switched to as needed and patients symptoms of nausea were treated with Reglan as needed and famotidine. He had intermittent episodes of hypokalemia requiring repletion and shortly prior to his discharge patients right upper chest wall axillary region developed worsening swelling with ultrasound showing possible seroma/hematoma. Patient denied any pain. There was no tenderness to palpation of this lump and was deemed most likely to be postoperative. Patient had no fevers, no leukocytosis, but was encouraged to seek further evaluation by the vascular surgeon on discharge or to go to the emergency department if he developed fevers or pain at the site. Overall, he did very well in therapy and was deemed medically and functionally stable to return home. DISCHARGE MEDICATIONS: As per instructions. FUNCTIONAL HISTORY ON DISCHARGE: Patient was modified independent, able to ambulate 50 feet with a rolling walker, and modified independent for all functional transfers. Thank you for this referral. LEIDY
[2020-01-22 19:10] LABS: BASO % 0.4 % (0.0-1.0); EOS # 0.8 10^3/uL (0.0-0.5); EOS % 9.1 % (0.0-3.0); HEMATOCRIT 25.1 % (42.0-52.0); HEMOGLOBIN 8.4 g/dl (13.5-17.5); LYMPH # 1.6 10^3/uL (1.5-5.0); LYMPH % 17.5 % (24.0-44.0); MEAN CORPUSCULAR HEMOGLOBIN 30.7 pg (27.0-33.0); MEAN CORPUSCULAR HGB CONC 33.5 g/dl (32.0-36.5); MEAN CORPUSCULAR VOLUME 91.6 fl (80.0-96.0); MONO # 0.9 10^3/uL (0.0-0.8); MONO % 10.4 % (0.0-5.0); NEUTROPHILS # 5.5 10^3/uL (1.5-8.5); NEUTROPHILS % 61.6 % (36.0-66.0); PLATELET COUNT, AUTOMATED 321 10^3/uL (150-450); RED BLOOD COUNT 2.74 10^6/uL (4.30-6.10)
[2020-02-20 06:11] LABS: BLOOD UREA NITROGEN 9 MG/DL (7-18); CALCIUM LEVEL 8.1 MG/DL (8.8-10.2); CARBON DIOXIDE LEVEL 30 MEQ/L (21-32); CHLORIDE LEVEL 108 MEQ/L (98-107); CREATININE FOR GFR 0.63 MG/DL (0.70-1.30); GLOMERULAR FILTRATION RATE > 60.0 (>49); GLUCOSE, FASTING 112 MG/DL (70-100); POTASSIUM SERUM 3.4 MEQ/L (3.5-5.1); SODIUM LEVEL 142 MEQ/L (136-145)
[2020-02-20 08:12] LABS: BLOOD UREA NITROGEN 8 MG/DL (7-18); CARBON DIOXIDE LEVEL 29 MEQ/L (21-32); CHLORIDE LEVEL 107 MEQ/L (98-107); CREATININE FOR GFR 0.65 MG/DL (0.70-1.30); GLOMERULAR FILTRATION RATE > 60.0 (>49); GLUCOSE, FASTING 180 MG/DL (70-100); POTASSIUM SERUM 3.7 MEQ/L (3.5-5.1); SODIUM LEVEL 138 MEQ/L (136-145)
[2020-02-20 11:12] LABS: BLOOD UREA NITROGEN 10 MG/DL (7-18); CARBON DIOXIDE LEVEL 28 MEQ/L (21-32); CHLORIDE LEVEL 105 MEQ/L (98-107); CREATININE FOR GFR 0.68 MG/DL (0.70-1.30); GLOMERULAR FILTRATION RATE > 60.0 (>49); GLUCOSE, FASTING 134 MG/DL (70-100); SODIUM LEVEL 139 MEQ/L (136-145)
[2020-02-20 11:13] LABS: CALCIUM LEVEL 8.4 MG/DL (8.8-10.2)
== END 2019-12-14 14:00 | disposition home health service (06) | DRG 561 ==
LOC: M PM&R 16:30
PROVIDERS: ADMIT Physical Medicine & Rehabilitation; ATTEND Physical Medicine & Rehabilitation
DX: S72.092D Other fracture of head and neck of left femur, subsequent encounter for closed fracture with routine healing (principal); E11.43 Type 2 diabetes mellitus with diabetic autonomic (poly)neuropathy; E78.5 Hyperlipidemia, unspecified; I11.0 Hypertensive heart disease with heart failure; I25.10 Atherosclerotic heart disease of native coronary artery without angina pectoris; I25.2 Old myocardial infarction; Z89.611 Acquired absence of right leg above knee; I69.391 Dysphagia following cerebral infarction; I50.9 Heart failure, unspecified; E87.6 Hypokalemia; K59.00 Constipation, unspecified; R33.9 Retention of urine, unspecified; G47.00 Insomnia, unspecified; Z88.8 Allergy status to other drugs, medicaments and biological substances; E11.65 Type 2 diabetes mellitus with hyperglycemia; W18.30XD Fall on same level, unspecified, subsequent encounter; Y92.9 Unspecified place or not applicable

== ENCOUNTER 2019-12-18 11:35 | Inpatient (IN) | payer MEDICARE, BC, OTHER ==
[~2019-12-18] VITALS: Ht 180.3 cm; Wt 72.4 kg
[~2019-12-18 11:35] MED LIST changes: +ASPI81CH33 PO; +ASPI81CH8 PO; +ATOR80TA59 PO; +CLOP75TA2 PO; +EZET10TA21 PO; +FLOM0.4C39 PO; +FLUO20CA22 PO; +FURO20TA2 PO; +GLUC500T PO; +KLOR10TA76 PO; +LISI40TA PO; +OXYB-54 PO; +RAME8TAB2 PO; +THIA100T7 PO; +THIA100TA PO; +VITMTA PO
[2019-12-18] MEDS ORDERED: GABA600T4 PO (12:02)
[2019-12-18] MEDS ORDERED: MORPHINE 2 MG/ML 1ML VIAL (J2270) IV ONE (12:30)
[2019-12-18] MEDS ORDERED: NS 1,000 ML IV ONE (12:30)
[2019-12-18] MEDS ORDERED: ONDANSETRON 4MG/2ML VIAL IV ONE (12:30)
--- NOTE | 2019-12-18 13:04 | REPVR ---
PROCEDURE INFORMATION: Exam: XR Complete Acute Abdomen Series Exam date and time: 12/18/2019 12:39 PM Age: 64 years old Clinical indication: Other: Abd pain; Additional info: Abdominal pain TECHNIQUE: Imaging protocol: XR complete acute abdomen series, including 2 or more views of the abdomen and a single view chest. COMPARISON: [place] PORTABLE CHEST X-RAY 12/06/2018 2:44 PM FINDINGS: Lungs: Normal. No consolidation. Pleural space: Normal. No pneumothorax. Heart/Mediastinum: The cardiomediastinal silhouette is stable in appearance allowing for differences in positioning. Gastrointestinal tract: The small bowel is not significantly air-distended or with air-fluid levels. Air and stool are present within large bowel. Intraperitoneal space: No free air is evident. Vasculature: Atherosclerotic vascular calcifications are noted. There are bilateral iliac artery stent grafts. Bones/joints: Degenerative changes again involve the spine. A left hip prosthesis is noted. Soft tissues: Surgical clips now overlie the right axilla. Surgical clips overlie the bilateral inguinal regions. IMPRESSION: 1. No evidence for acute pulmonary disease. 2. Nonspecific bowel gas pattern. Electronically signed by: Edgardo Garza On 12/18/2019 13:04:17 PM
[2019-12-18] MEDS ORDERED: lisinopriL 40 MG TAB PO ONE (13:15)
[2019-12-18] MEDS ORDERED: atenoloL 50 MG TAB PO ONE (13:15)
[2019-12-18 13:56] LABS: BASO % 0.5 % (0.0-1.0); EOS % 0.2 % (0.0-3.0); HEMATOCRIT 30.7 % (42.0-52.0); HEMOGLOBIN 10.1 g/dl (13.5-17.5); LYMPH # 1.5 10^3/uL (1.5-5.0); LYMPH % 17.3 % (24.0-44.0); MEAN CORPUSCULAR HEMOGLOBIN 30.3 pg (27.0-33.0); MEAN CORPUSCULAR HGB CONC 32.9 g/dl (32.0-36.5); MEAN CORPUSCULAR VOLUME 92.2 fl (80.0-96.0); MONO # 0.7 10^3/uL (0.0-0.8); MONO % 8.3 % (0.0-5.0); NEUTROPHILS # 6.2 10^3/uL (1.5-8.5); NEUTROPHILS % 73.3 % (36.0-66.0); PLATELET COUNT, AUTOMATED 261 10^3/uL (150-450); RED BLOOD COUNT 3.33 10^6/uL (4.30-6.10); WHITE BLOOD COUNT 8.4 10^3/uL (4.0-10.0)
[2019-12-18 14:07] LABS: INR 1.12; PROTHROMBIN TIME 14.7 SECONDS (11.8-14.0)
[2019-12-18 14:08] LABS: PARTIAL THROMBOPLASTIN TIME 23.6 SECONDS (25.0-38.4)
[2019-12-18 14:34] LABS: ALBUMIN 2.5 GM/DL (3.2-5.2); ALT/SGPT 17 U/L (12-78); BILIRUBIN,DIRECT 0.3 MG/DL (0.0-0.2); BILIRUBIN,TOTAL 0.6 MG/DL (0.2-1.0); BLOOD UREA NITROGEN 15 MG/DL (7-18); CALCIUM LEVEL 6.7 MG/DL (8.8-10.2); CARBON DIOXIDE LEVEL 23 MEQ/L (21-32); CHLORIDE LEVEL 105 MEQ/L (98-107); CK-MB VALUE MASS 1.3 NG/ML (<3.6); CPK CREATINE PHOSPHOKINASE 57 U/L (39-308); CREATININE FOR GFR 0.59 MG/DL (0.70-1.30); GLOMERULAR FILTRATION RATE > 60.0 (>49); GLUCOSE, FASTING 116 MG/DL (70-100); LIPASE 42 U/L (73-393); MAGNESIUM LEVEL 0.5 MG/DL (1.8-2.4); MB/CK RELATIVE INDEX 2.28 (< OR =4); POTASSIUM SERUM 2.7 MEQ/L (3.5-5.1); SODIUM LEVEL 140 MEQ/L (136-145); THYROID STIMULATING HORMONE 0.427 uIU/ML (0.358-3.740); TOTAL PROTEIN 6.5 GM/DL (6.4-8.2); TROPONIN I < 0.02 NG/ML (< 0.10)
[2019-12-18] MEDS ORDERED: MAGNESIUM OXIDE 400 MG TAB (MAG-OX) PO ONE (14:45)
[2019-12-18] MEDS ORDERED: KCL 10MEQ/100ML SWI (KRUN) 10 MEQ in IV 1 EA IV ONE (14:45)
[2019-12-18] MEDS ORDERED: POTASSIUM CHLORIDE 10 MEQ SR TABLET PO ONE ×2 (14:45→19:00)
[2019-12-18] MEDS ORDERED: MAG SULF 1GM/100ML (MAG RUN) 1 GM in IV 1 EA IV ONE ×2 (14:45→20:00)
[2019-12-18] MEDS ORDERED: DEXTROSE 50% 50 ML SYRINGE IV PRN ×2 (15:00)
[2019-12-18] MEDS ORDERED: cloNIDine 0.2 MG TAB PO SCH (15:00)
[2019-12-18] MEDS ORDERED: GLUCAGON INJ 1MG VIAL SC PRN ×2 (15:00)
[2019-12-18] MEDS ORDERED: GLUCOSE 4GM CHEW TABLET PO PRN ×2 (15:00)
[2019-12-18] MEDS ORDERED: hydrALAZINE 20MG/ML 1ML VIAL (J0360 PER 20MG) IV SCH (15:00)
[2019-12-18] MEDS ORDERED: ONDANSETRON 4MG/2ML VIAL IV PRN (15:30)
[2019-12-18] MEDS ORDERED: hydrALAZINE 20MG/ML 1ML VIAL (J0360 PER 20MG) IV PRN (15:30)
[2019-12-18] MEDS ORDERED: RAMELTEON 8 MG TAB (ROZEREM) PO PRN (15:45)
[2019-12-18] MEDS ORDERED: ROZE8TAB16 PO (15:59)
[2019-12-18] MEDS ORDERED: FLUO20CA20 PO (15:59)
[2019-12-18] MEDS ORDERED: POTA10TA17 PO (15:59)
[2019-12-18] MEDS ORDERED: ATEN100T PO (15:59)
[2019-12-18] MEDS ORDERED: METF500T13 PO (15:59)
[2019-12-18] MEDS ORDERED: OMEP40CA97 PO (15:59)
[2019-12-18] MEDS ORDERED: FURO20TA2 PO (15:59)
[2019-12-18] MEDS ORDERED: ATOR80TA59 PO (15:59)
[2019-12-18] MEDS ORDERED: TAMS1CAP17 PO (15:59)
[2019-12-18] MEDS ORDERED: DOXA1TAB41 PO (15:59)
[2019-12-18 16:15] VITALS: BP 139/81
[2019-12-18] MEDS: KCL 40MEQ IN D5/0.45NS 1000ML 1,000 ML IV SCH (16:31)
[2019-12-18] MEDS: HumaLOG INSULIN (NovoLOG) PER UNIT SC SCH ×2 (17:28→21:00)
[2019-12-18 18:17] LABS: IONIZED CALCIUM 3.4 MG/DL (4.5-5.3)
[2019-12-18 18:47] LABS: BLOOD UREA NITROGEN 14 MG/DL (7-18); CALCIUM LEVEL 6.4 MG/DL (8.8-10.2); CARBON DIOXIDE LEVEL 22 MEQ/L (21-32); CHLORIDE LEVEL 109 MEQ/L (98-107); CREATININE FOR GFR 0.56 MG/DL (0.70-1.30); GLOMERULAR FILTRATION RATE > 60.0 (>49); GLUCOSE, FASTING 122 MG/DL (70-100); MAGNESIUM LEVEL 0.8 MG/DL (1.8-2.4); SODIUM LEVEL 141 MEQ/L (136-145)
[2019-12-18 20:00] VITALS: BP 155/72
[2019-12-18] MEDS: ATORVASTATIN 20 MG TAB PO SCH (20:22)
[2019-12-18] MEDS: GABAPENTIN 300 MG CAP PO SCH (20:22)
[2019-12-18] MEDS ORDERED: POTASSIUM CHLORIDE 10 MEQ SR TABLET PO SCH (21:00)
[2019-12-18 21:42] LABS: POTASSIUM SERUM 3.3 MEQ/L (3.5-5.1)
[2019-12-18] MEDS ORDERED: POTASSIUM CHLORIDE 10% LIQ 20 MEQ/15 ML UDC PO ONE (22:15)
[2019-12-18 23:04] LABS: MAGNESIUM LEVEL 1.3 MG/DL (1.8-2.4); PHOSPHORUS LEVEL 2.6 MG/DL (2.5-4.9)
[2019-12-18 23:32] LABS: BLOOD UREA NITROGEN 13 MG/DL (7-18); CALCIUM LEVEL 6.5 MG/DL (8.8-10.2); CARBON DIOXIDE LEVEL 22 MEQ/L (21-32); CHLORIDE LEVEL 109 MEQ/L (98-107); CREATININE FOR GFR 0.59 MG/DL (0.70-1.30); GLOMERULAR FILTRATION RATE > 60.0 (>49); GLUCOSE, FASTING 145 MG/DL (70-100); SODIUM LEVEL 141 MEQ/L (136-145)
[2019-12-18] MEDS: CALCIUM CARBONATE 500 MG CHEW U/D PO SCH (23:47)
[2019-12-18] MEDS: MAG SULF 1GM/100ML (MAG RUN) 1 GM in IV 1 EA IV SCH (23:49)
[2019-12-19] VITALS: BP 165/74
[2019-12-19] MEDS: MAG SULF 1GM/100ML (MAG RUN) 1 GM in IV 1 EA IV SCH (00:58)
[2019-12-19 02:45] LABS: BLOOD UREA NITROGEN 14 MG/DL (7-18); CALCIUM LEVEL 6.4 MG/DL (8.8-10.2); CARBON DIOXIDE LEVEL 22 MEQ/L (21-32); CHLORIDE LEVEL 110 MEQ/L (98-107); GLOMERULAR FILTRATION RATE > 60.0 (>49); GLUCOSE, FASTING 155 MG/DL (70-100); MAGNESIUM LEVEL 1.9 MG/DL (1.8-2.4); POTASSIUM SERUM 3.5 MEQ/L (3.5-5.1); SODIUM LEVEL 140 MEQ/L (136-145)
[2019-12-19] MEDS: CALCIUM CARBONATE 500 MG CHEW U/D PO SCH ×2 (03:52→07:56)
[2019-12-19] MEDS: KCL 40MEQ IN D5/0.45NS 1000ML 1,000 ML IV SCH (03:52)
[2019-12-19 03:55] LABS: IONIZED CALCIUM 3.9 MG/DL (4.5-5.3)
[2019-12-19 03:58] LABS: BASO # 0.1 10^3/uL (0.0-0.2); BASO % 0.8 % (0.0-1.0); EOS # 0.2 10^3/uL (0.0-0.5); EOS % 3.4 % (0.0-3.0); HEMATOCRIT 25.3 % (42.0-52.0); HEMOGLOBIN 8.4 g/dl (13.5-17.5); LYMPH # 1.5 10^3/uL (1.5-5.0); LYMPH % 21.4 % (24.0-44.0); MEAN CORPUSCULAR HEMOGLOBIN 30.7 pg (27.0-33.0); MEAN CORPUSCULAR HGB CONC 33.2 g/dl (32.0-36.5); MEAN CORPUSCULAR VOLUME 92.3 fl (80.0-96.0); MONO # 0.8 10^3/uL (0.0-0.8); MONO % 11.2 % (0.0-5.0); NEUTROPHILS # 4.4 10^3/uL (1.5-8.5); NEUTROPHILS % 62.6 % (36.0-66.0); PLATELET COUNT, AUTOMATED 203 10^3/uL (150-450); RED BLOOD COUNT 2.74 10^6/uL (4.30-6.10); WHITE BLOOD COUNT 7.1 10^3/uL (4.0-10.0)
[2019-12-19 04:00] VITALS: BP 158/64
[2019-12-19 04:18] LABS: BLOOD UREA NITROGEN 14 MG/DL (7-18); CALCIUM LEVEL 6.6 MG/DL (8.8-10.2); CARBON DIOXIDE LEVEL 24 MEQ/L (21-32); CHLORIDE LEVEL 112 MEQ/L (98-107); GLOMERULAR FILTRATION RATE > 60.0 (>49); GLUCOSE, FASTING 164 MG/DL (70-100); MAGNESIUM LEVEL 1.7 MG/DL (1.8-2.4); POTASSIUM SERUM 3.7 MEQ/L (3.5-5.1); SODIUM LEVEL 141 MEQ/L (136-145)
[2019-12-19] MEDS ORDERED: MAGNESIUM OXIDE 400 MG TAB (MAG-OX) PO ONE (06:15)
[2019-12-19 07:21] VITALS: BP 152/68
[2019-12-19] MEDS: HumaLOG INSULIN (NovoLOG) PER UNIT SC SCH ×4 (07:30→20:38)
[2019-12-19] MEDS: ASPIRIN 81 MG ENTERIC TAB PO SCH (07:55)
[2019-12-19] MEDS: OMEPRAZOLE 20 MG CAP PO SCH (07:55)
[2019-12-19] MEDS: MAGNESIUM CHLORIDE 64 MG TABCR (SLO MAG) PO SCH (07:55)
[2019-12-19] MEDS: lisinopriL 40 MG TAB PO SCH (07:56)
[2019-12-19] MEDS: DOXAZOSIN MESYLATE 1 MG TAB PO SCH (07:56)
[2019-12-19] MEDS: GABAPENTIN 300 MG CAP PO SCH ×2 (07:57→20:35)
[2019-12-19] MEDS: TAMSULOSIN 0.4 MG CAP PO SCH (07:57)
[2019-12-19] MEDS: THIAMINE 100 MG TAB PO SCH (07:57)
[2019-12-19] MEDS: FLUoxetine 20 MG CAP PO SCH (07:57)
[2019-12-19] MEDS: MULTIVITAMINS/MINERALS THERAP 1 TAB PO SCH (07:57)
[2019-12-19] MEDS: EZETIMIBE 10 MG TAB (ZETIA) PO SCH (07:57)
[2019-12-19] MEDS ORDERED: ACETAMINOPHEN 500 MG TAB PO ONE (08:00)
[2019-12-19] MEDS ORDERED: MAG SULF 1GM/100ML (MAG RUN) 1 GM in IV 1 EA IV ONE (08:00)
[2019-12-19] MEDS ORDERED: CALCIUM GLUCONATE 1,000 MG in D5W MINI-BAG PLUS 100 ML IV ONE (09:00)
[2019-12-19] MEDS: POTASSIUM CHLORIDE 10% LIQ 20 MEQ/15 ML UDC PO SCH ×3 (09:00→20:36)
[2019-12-19] MEDS ORDERED: atenoloL 25 MG TAB PO SCH (09:00)
[2019-12-19] MEDS ORDERED: **hydrALAZINE** 10 MG TAB PO PRN (10:45)
[2019-12-19] MEDS ORDERED: SLF 3 ML SYR IV PRN (11:00)
[2019-12-19] MEDS: SLF 3 ML SYR IV SCH ×2 (11:38→20:36)
[2019-12-19 16:00] VITALS: BP 133/63
[2019-12-19 19:55] LABS: IONIZED CALCIUM 4.3 MG/DL (4.5-5.3)
[2019-12-19 20:00] VITALS: BP 125/60
[2019-12-19 20:00] LABS: BLOOD UREA NITROGEN 13 MG/DL (7-18); CALCIUM LEVEL 7.2 MG/DL (8.8-10.2); CARBON DIOXIDE LEVEL 22 MEQ/L (21-32); CHLORIDE LEVEL 113 MEQ/L (98-107); CREATININE FOR GFR 0.71 MG/DL (0.70-1.30); GLOMERULAR FILTRATION RATE > 60.0 (>49); GLUCOSE, FASTING 147 MG/DL (70-100); MAGNESIUM LEVEL 1.9 MG/DL (1.8-2.4); POTASSIUM SERUM 3.8 MEQ/L (3.5-5.1); SODIUM LEVEL 140 MEQ/L (136-145)
[2019-12-19] MEDS: ATORVASTATIN 20 MG TAB PO SCH (20:35)
[2019-12-19] MEDS: ACETAMINOPHEN TAB 650MG DOSE (2X325MG) PO PRN (21:03)
[2019-12-20 04:00] VITALS: BP 162/76
[2019-12-20] MEDS: ACETAMINOPHEN TAB 650MG DOSE (2X325MG) PO PRN ×2 (04:24→08:23)
[2019-12-20] MEDS: SLF 3 ML SYR IV SCH ×2 (05:01→13:26)
[2019-12-20 05:15] VITALS: BP 148/72
[2019-12-20 08:00] VITALS: BP 164/82
[2019-12-20] MEDS ORDERED: atenoloL 50 MG TAB PO ONE (08:00)
[2019-12-20 08:09] LABS: IONIZED CALCIUM 4.6 MG/DL (4.5-5.3)
[2019-12-20] MEDS: HumaLOG INSULIN (NovoLOG) PER UNIT SC SCH ×2 (08:22→12:00)
[2019-12-20] MEDS: POTASSIUM CHLORIDE 10% LIQ 20 MEQ/15 ML UDC PO SCH (08:22)
[2019-12-20] MEDS: DOXAZOSIN MESYLATE 1 MG TAB PO SCH (08:23)
[2019-12-20] MEDS: TAMSULOSIN 0.4 MG CAP PO SCH (08:23)
[2019-12-20] MEDS: OMEPRAZOLE 20 MG CAP PO SCH (08:23)
[2019-12-20] MEDS: EZETIMIBE 10 MG TAB (ZETIA) PO SCH (08:23)
[2019-12-20] MEDS: lisinopriL 40 MG TAB PO SCH (08:24)
[2019-12-20] MEDS: FLUoxetine 20 MG CAP PO SCH (08:24)
[2019-12-20] MEDS: MULTIVITAMINS/MINERALS THERAP 1 TAB PO SCH (08:24)
[2019-12-20] MEDS: THIAMINE 100 MG TAB PO SCH (08:24)
[2019-12-20] MEDS: ASPIRIN 81 MG ENTERIC TAB PO SCH (08:24)
[2019-12-20] MEDS: GABAPENTIN 300 MG CAP PO SCH (08:24)
[2019-12-20 08:25] VITALS: BP 148/80
[2019-12-20] MEDS: MAGNESIUM CHLORIDE 64 MG TABCR (SLO MAG) PO SCH (08:25)
[2019-12-20 08:30] LABS: BLOOD UREA NITROGEN 13 MG/DL (7-18); CALCIUM LEVEL 7.8 MG/DL (8.8-10.2); CARBON DIOXIDE LEVEL 22 MEQ/L (21-32); CHLORIDE LEVEL 114 MEQ/L (98-107); CREATININE FOR GFR 0.62 MG/DL (0.70-1.30); GLOMERULAR FILTRATION RATE > 60.0 (>49); GLUCOSE, FASTING 153 MG/DL (70-100); MAGNESIUM LEVEL 1.7 MG/DL (1.8-2.4); POTASSIUM SERUM 4.4 MEQ/L (3.5-5.1); SODIUM LEVEL 142 MEQ/L (136-145)
[2019-12-20 08:31] LABS: HEMATOCRIT 28.6 % (42.0-52.0); HEMOGLOBIN 8.9 g/dl (13.5-17.5); MEAN CORPUSCULAR HEMOGLOBIN 30.5 pg (27.0-33.0); MEAN CORPUSCULAR HGB CONC 31.1 g/dl (32.0-36.5); MEAN CORPUSCULAR VOLUME 97.9 fl (80.0-96.0); PLATELET COUNT, AUTOMATED 200 10^3/uL (150-450); RED BLOOD COUNT 2.92 10^6/uL (4.30-6.10); WHITE BLOOD COUNT 6.1 10^3/uL (4.0-10.0)
[2019-12-20 12:00] VITALS: BP 92/51
[2019-12-20] MEDS ORDERED: MAG SULF 1GM/100ML (MAG RUN) 1 GM in IV 1 EA IV ONE (13:00)
--- NOTE | 2019-12-21 07:01 | HPE ---
DATE OF ADMISSION: 12/18/2019 CHIEF COMPLAINT: Nausea, vomiting, diarrhea for 2 days. HISTORY OF PRESENT ILLNESS: This is a 64-year-old male with prior history of factor V Leiden mutation, cerebrovascular accident (CVA), coronary artery disease (CAD), peripheral arterial disease, type 2 diabetes, grade 1, left ventricular diastolic dysfunction on echo November 2018, CAD, hematuria due to warfarin, pancreatitis, coronary artery stents and bypass, peripheral arterial disease, reflux, BPH, who was in his usual state of health until 2 days ago, when he developed intractable nausea, vomiting, and diarrhea. Diarrhea was described as watery, nonbloody, nonmucousy, two times yesterday with nausea and vomiting about three to four times yesterday and again today, accompanied with abdominal discomfort without fever or chills. Patient had not taken any medications. Describes the abdominal pain as diffuse without radiation. Otherwise denied any bright red blood per rectum, melena, black, tarry stools. Pain is rated at 3/10, described as crampy. No other family members have the same diarrhea episodes. Patient does not drink well water. Is not on any Sorbitol. He was seen in the emergency room (ER) and found to have hypertensive urgency, blood pressure of 220 systolic. Patient otherwise denies any headaches, changes in vision, confusion, upper or lower extremity weakness. Hospitalist was called to admit for hypertensive urgency, nausea, vomiting, and diarrhea evaluation and electrolyte abnormalities with low potassium of 2.7, mag 0.5, calcium 6.7. MEDICAL HISTORY: 1. Heterozygous factor V Leiden mutation. 2. Deep venous thrombosis (DVT). 3. CAD. 4. Coronary stents. 5. Cerebrovascular accident (CVA). 6. Coronary artery bypass graft (CABG). 7. Type 2 diabetes. 8. Grade 1 left ventricular diastolic dysfunction. 9. CVA. 10. Pancreatitis. 11. Coronary stents and bypass. 12. Peripheral arterial disease. 13. Reflux. 14. Benign prostatic hypertrophy. PAST SURGICAL HISTORY: 1. Coronary artery stents. 2. CABG. 3. Right carotid endarterectomy [address] Palacios. 4. Coronary artery stents. 5. Right above-knee amputation. 6. Brittany-inguinal hernia. 7. Recent November 2019 axillary femoral bypass surgery with hematoma following tPA at [facility] ([facility] with swelling, right upper chest, fluid collection, postprocedural seroma. 8. Cervical ligament sprain, status post cervical collar. ALLERGIES: COUMADIN, causing bleeding, STATINS, causing joint pain, HYDROCODONE, CAFFEINE, and TYLENOL. PLAVIX causing dyspepsia. SOCIAL HISTORY: Lives with . Former smoker. Denies alcohol or illicit drug use. Prior history of alcohol abuse. Quit many years ago. Previously smoked a pack a day for about 30-40 years. A 40 pack-year history of smoking. HOME MEDICATIONS: - aspirin 81 daily - atenolol 100 daily - atorvastatin 80 daily - Plavix 75 daily - doxazosin 2 mg daily - Zetia 10 daily - fluoxetine 20 daily - Lasix 20 daily - gabapentin 600 twice a day - lisinopril 40 daily - metformin 500 daily - multivitamin one tablet daily - Prilosec 40 daily - potassium 40 mEq twice a day - ramelteon 8 mg every night - Flomax 0.8 daily - thiamine 100 mg daily FAMILY HISTORY: Noncontributory, unknown. REVIEW OF SYSTEMS: Per history of present illness (HPI). A 12-point system os negative. PHYSICAL EXAMINATION: VITAL SIGNS: Temperature 96.5, pulse 77, respiratory rate 24, blood pressure 220/88, 95% on room air. GENERAL: Patient is retching. Pupils round and reactive. Anicteric sclerae. No jaundice. Extraocular muscles are intact. No jugular venous distention (JVD) or thyromegaly. Dry mucous membranes. No cervical lymphadenopathy. LUNGS: Clear to auscultation. No wheezing, rales, or rhonchi. HEART: S1, S2, sinus rhythm. Seroma noted in the right axilla, lateral aspect. ABDOMEN: Soft, nontender, nondistended. Positive bowel sounds times four quadrants. No rebound or guarding. SKIN: Left hip prosthesis. Right AKA. LABORATORY DATA: White count 8.4, hemoglobin 10, hematocrit 30, platelet count 261. Sodium 140, potassium 2.7, chloride 105, bicarbonate 23, BUN 15, creatinine 0.59, glucose 116, lactic acid 1.4, calcium 67, magnesium 0.5. Total bilirubin 0.6, direct bilirubin 0.3, AST 15, ALT 17, alkaline phosphatase 82. Total CK 57, MB fraction 1.32, troponin less than 0.02. TSH 0.427. IMAGING STUDIES: Abdominal film: Nonspecific bowel-gas pattern. No evidence of acute pulmonary disease. Chest ultrasound : Axillary bifemoral bypass graft totally surrounding level of the right clavicle along the right flank region, 10.4 x 4.6 x 12.4 cm, representing postprocedural seroma or hematoma. No indication of abscess. ASSESSMENT AND PLAN: This is a 64-year-old male with recent left middle cerebral artery (MCA) cerebrovascular accident (CVA), status post tPA. Had been placed on aspirin and Plavix but developed a recent axillary femoral bypass surgery due to hematoma following tPA with persistent seroma in the right chest, cervical ligament sprain, heterozygous factor V Leiden mutation with history of deep venous thrombosis (DVT), urine retention and BPH, on chronic Flomax, diabetes, hypertensive heart disease, coronary artery stents, coronary artery disease (CAD), coronary artery bypass graft (CABG) reflux, peripheral arterial disease, history of pancreatitis, hematuria due to warfarin, grade 1 left ventricular diastolic dysfunction, diabetes, dyslipidemia, presented to the emergency room with 2-day history of nausea, vomiting, and diarrhea with subsequent electrolyte abnormalities and hypertensive urgency. IMPRESSION: 1. Hypertensive urgency. 2. Gastroenteritis with nausea, vomiting, diarrhea. 3. Electrolyte abnormalities with low potassium. 4. Hypokalemia. 5. Low mag. 6. Hypomagnesemia. 7. Anemia of chronic disease. 8. Recent left MCA CVA. 9. Seroma of the right clavicle secondary to CVA with no signs of abscess. 10. Type 2 diabetes. 11. Dyslipidemia. 12. Hypertensive heart disease. 13. Grade 1 diastolic dysfunction. 14. Coronary artery disease, status post CABG and coronary stents. 15. Factor V Leiden mutation, heterozygous with history of deep venous thrombosis (DVT) in the past, on chronic anticoagulation. 16. Peripheral arterial disease with right above-knee amputation (AKA). 17. Gross hematuria due to warfarin in the past. PLAN: Patient will be admitted to the progressive care unit (PCU), resumed on his home blood pressure medications, atenolol and lisinopril. Intravenous (IV) hydralazine for systolic pressure greater than 160 or diastolic greater than 90. Vital signs checked every 4 hours until patient's blood pressure is normalized. Check gastrointestinal (GI) panel regarding the patient's diarrhea. No fever to suspect COVID and no COVID exposures. Continue with electrolyte supplementations with magnesium and potassium. Antiemetics for supportive care. Hypoglycemic protocol. Continue on consistent-carbohydrate 2-gram sodium diet. Resume antiplatelets, aspirin, and Plavix for history of peripheral arterial disease. Wound care per home regimen for the right above-knee amputation (AKA). Resume Zetia, fluoxetine, atorvastatin, gabapentin. Discontinue metformin. Place on sliding scale with coverage. Continue on Flomax. MTDD
[2019-12-21] MEDS ORDERED: atenoloL 50 MG TAB PO SCH (09:00)
--- NOTE | 2019-12-21 10:08 | IPN ---
DATE: 12/20/2019 SUBJECTIVE : Patient complains of weakness this morning, which is generalized. Denies pain, headache, chest pain, pressure, tightness, nausea, vomiting. No recurrent episodes of diarrhea. OBJECTIVE: PHYSICAL EXAMINATION: VITAL SIGNS: Temperature 97.6, pulse 72, respiratory rate 18, blood pressure 158/80, 100% on room air. GENERAL: Awake, alert, oriented times three, answering questions appropriately. Face is symmetric. Tongue is midline. LUNGS: Clear to auscultation. No wheezing, rales, or rhonchi. HEART: S1, S2, sinus rhythm. ABDOMEN: Soft, nontender, nondistended. EXTREMITIES: Right above-knee amputation (AKA). Left trace edema. SKIN: Right seroma, nontender, nonerythematous. LABORATORY DATA: White count 6, hemoglobin 8.9, hematocrit 28, platelet count 200. Sodium 142, potassium 4.4, chloride 114, bicarbonate 22, BUN 13, creatinine 0.6, glucose 153, magnesium 1.7. ASSESSMENT AND PLAN: A 64-year-old male with recent left middle cerebral artery (MCA) cerebrovascular accident (CVA), discharged from acute rehabilitation. Presented with diarrhea, electrolyte abnormalities, and hypertensive urgency. IMPRESSION: 1. Hypokalemia, hypomagnesemia, hypocalcemia secondary to diarrhea. 2. Acute diarrhea, resolved. 3. Hypertensive urgency. 4. Left MCA infarct, status post tPA. 6. Left internal carotid artery (ICA) stenosis. 7. Urine retention. 8. Type 2 diabetes. 9. Insomnia. 10. History of recent axillary femoral bypass with hematoma, status post TPA with postprocedural seroma/hematoma. 11. Cervical ligament sprain. PLAN: Patient is doing well. Electrolytes have been repleted. Patient has no recurrent episodes of diarrhea. Hypertensive urgency is improved on current medications. Atenolol has been increased to 100 daily. Hydralazine 10 mg every 4 as needed for systolic pressure greater than 150 and greater than 90, on lisinopril 40 every morning. Patient is continued on his home medications of aspirin, Zetia for stroke. He is continued on Flomax for his BPH and doing well, awaiting physical therapy (PT) clearance prior to discharge home. [facility]
--- NOTE | 2019-12-21 10:09 | IPN ---
DATE: 12/19/2019 SUBJECTIVE: Patient seen and examined at the bedside. Chart has been reviewed. He denies any recurrent episodes of diarrhea. Potassium, magnesium, and ionized calcium are significantly improved after supplementation. Patient's blood pressure is better on home dose of medications and as-needed hydralazine, currently 152/68 with no complaints of headache, chest pain, shortness of breath. No other issues per nursing overnight. Telemetry was unremarkable. OBJECTIVE: PHYSICAL EXAMINATION: VITAL SIGNS: Temperature 98.5, pulse 65, respiratory rate 16, blood pressure 152/68, 99% on room air. GENERAL: Patient is awake, alert, oriented to person, place, and time, answering questions appropriately. LUNGS: Clear to auscultation. No wheezing, rales, or rhonchi. HEART: S1, S2, sinus rhythm. ABDOMEN: Soft, nontender, nondistended. Positive bowel sounds. EXTREMITIES: No cyanosis or clubbing. Right above-knee amputation. LABORATORY DATA: White count 7, hemoglobin 8.4, hematocrit 25, platelet count 203. Sodium 141, potassium 3.7, chloride 112, bicarbonate 24, BUN 14, creatinine 0.6, glucose 164. Ionized calcium 3.9, magnesium 1.7. Microbiology: None. Abdominal x-ray: Nonspecific bowel-gas pattern. No evidence of acute cardiopulmonary disease. ASSESSMENT AND PLAN: This is a 64-year-old male with history of acute left middle cerebral artery (MCA) cerebrovascular accident (CVA), status post tPA, urine retention, on chronic Flomax, type 2 diabetes, insomnia, recent axillary femoral bypass surgery with hematoma following tPA with increased swelling of right upper chest with postprocedural seroma/hematoma with no abscess, cervical ligament sprain, recently discharged from acute rehabilitation unit, status post right above-knee amputation (AKA) with left hip fracture and left MCA CVA. IMPRESSION: 1. Diarrhea, resolved. 2. Clinical abnormalities with low potassium, magnesium, and calcium secondary to diarrhea, repleted and improved. 3. Right AKA with left hip fracture, complicated by left MCA infarct and axillary femoral bypass surgery with hematoma and postprocedural seroma, all stable. Resumed on home medications. 4. Hypertensive urgency, resolved. Resumed on atenolol and lisinopril. Patient has been given hydralazine as needed for systolic pressure greater than 150 or diastolic greater than 90. 5. Depression, on Prozac. DISPOSITION: Await physical therapy (PT) clearance for discharge home. MTDD
--- NOTE | 2019-12-29 16:34 | ECGEPIP ---
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
--- NOTE | 2020-01-11 10:41 | DSES ---
DATE OF ADMISSION: 12/18/2019 DATE OF DISCHARGE: 12/20/2019 PRIMARY DISCHARGE DIAGNOSES: * Diarrhea. * Hypokalemia. * Hypomagnesemia. * Recent acute left main coronary artery (MCA) cerebrovascular accident (CVA). * Hypertensive urgency. DISCHARGE MEDICATIONS: - Aspirin 81 daily - Atenolol 100 daily - Atorvastatin 80 daily - Plavix 75 daily - Doxazosin 2 mg daily - Zetia 10 daily - Fluoxetine 20 daily - Lasix 20 daily - Gabapentin 600 twice a day - Lisinopril 40 daily - Metformin 500 daily - Multivitamin one tablet daily - Omeprazole 40 daily - Potassium 40 mEq twice a day - Rozerem 8 mg once daily at bedtime - Tamsulosin 0.8 daily - Thiamine 100 mg daily HOSPITAL COURSE: A 64-year-old male presented to the emergency room after being recently released by Acute Rehab Unit due to left MCA CVA with two day history of diarrhea with significant electrolyte abnormalities, magnesium of 0.5, potassium of 2.7. The patient was found to have a hypertensive urgency with blood pressure of 220/88 with no neurological complaints. He denies any headache, dizziness, denies any seizure activity. The patient was admitted and was repleted with K-Dur, magnesium, and IV potassium. Calcium level was also treated and was normalized from a low of 3.4 to ionized calcium of 4.6 with supplemental oral calcium tablets and IV gluconate. The patient had no issues on telemetry, was subsequently passed by physical therapy. Electrolytes remained stable with no abnormalities on telemetry. The patient is discharged in stable condition to follow up with his primary care physician as an outpatient within a week of hospital discharge. PHYSICAL EXAM ON DISCHARGE: Vital signs: Temperature 97.6, pulse 72, respiratory rate 18, blood pressure 148/80, 100% on room air. Generally awake, alert and oriented to person, place, and time. Face is symmetric. Tongue is midline. Pupils round and reactive. Extraocular muscles are intact. Anicteric sclerae. No jaundice. No pharyngeal erythema. Moist mucous membranes. No jugular venous distention (JVD), thyromegaly or cervical lymphadenopathy. Lungs are clear to auscultation, no wheezing, rales or rhonchi. Heart: S1, S2 sinus rhythm. Abdomen is soft, nontender, nondistended. Positive bowel sounds. Right above the knee amputation (AKA). Left has trace to 1+ pitting edema. LABORATORY DATA ON DISCHARGE: White count 6.1, hemoglobin 8.9, hematocrit 28.6, platelet count 231,040, potassium 140, potassium 3.5, chloride 110, bicarb 22, BUN 14, creatinine 0.5, glucose 155, ionized calcium 4.6. Repeat metabolic panel: Sodium 142, potassium 4.4, chloride 114, bicarb 22, BUN 13, creatinine 0.62, glucose 153, magnesium 1.7. IMAGING STUDY: Abdominal x-ray nonspecific bowel gas pattern, no evidence of acute pulmonary disease. Time spent on discharge 30 minutes. MTDD
== END 2019-12-20 15:31 | disposition home or self-care (01) | DRG 305 ==
LOC: EDBD 11:35 → M ED 11:35 → M ED INP 14:47 → ENRESERV 15:38 → M PCU 16:12
PROVIDERS: ADMIT General Practice; ATTEND General Practice
DX: I16.0 Hypertensive urgency (principal); D68.2 Hereditary deficiency of other clotting factors; E87.6 Hypokalemia; E83.42 Hypomagnesemia; E11.51 Type 2 diabetes mellitus with diabetic peripheral angiopathy without gangrene; R31.0 Gross hematuria; E78.5 Hyperlipidemia, unspecified; Z86.73 Personal history of transient ischemic attack (TIA), and cerebral infarction without residual deficits; K52.9 Noninfective gastroenteritis and colitis, unspecified; I11.9 Hypertensive heart disease without heart failure; I25.10 Atherosclerotic heart disease of native coronary artery without angina pectoris; Z95.2 Presence of prosthetic heart valve; Z79.01 Long term (current) use of anticoagulants; E83.51 Hypocalcemia; G47.00 Insomnia, unspecified; R33.9 Retention of urine, unspecified; F32.9 Major depressive disorder, single episode, unspecified; Z89.611 Acquired absence of right leg above knee

== ENCOUNTER 2019-12-30 10:13 | Inpatient (IN) | payer MEDICARE, BC, OTHER ==
[~2019-12-30] VITALS: Ht 180.3 cm; Wt 74.7 kg
[~2019-12-30 10:13] MED LIST changes: +FLUO20CA20 PO; +GABA600T4 PO; +POTA10TA17 PO; +ROZE8TAB16 PO; +TAMS1CAP17 PO
[2019-12-30] MEDS ORDERED: LORazepam 2 MG/ML VIAL IV STA (11:20)
[2019-12-30] MEDS ORDERED: LORazepam 2 MG/ML VIAL As Ordered ONE (11:21)
--- NOTE | 2019-12-30 11:25 | REPVR ---
PROCEDURE INFORMATION: Exam: CT Cervical Spine Without Contrast Exam date and time: 12/30/2019 10:54 AM Age: 64 years old Clinical indication: Other: Syncope TECHNIQUE: Imaging protocol: Computed tomography images of the cervical spine without contrast. Radiation optimization: All CT scans at this facility use at least one of these dose optimization techniques: automated exposure control; mA and/or kV adjustment per patient size (includes targeted exams where dose is matched to clinical indication); or iterative reconstruction. COMPARISON: No relevant prior studies available. FINDINGS: Vertebrae: No acute fracture. There is minimal retrolisthesis of C3 on C4. Discs/Spinal canal/Neural foramina: There are mild degenerative changes with uncinate and facet osteophytes and minimal marginal osteophytes without spinal stenosis and with mild neural foraminal narrowing C3-C4 and C4-C5. Soft tissues: There are surgical clips in right neck. There is vascular calcification with calcification at bilateral carotid bulbs and bifurcations and in common carotid arteries and calcification of intracranial vertebral arteries. Lungs: Lung apices are unremarkable for acute finding. IMPRESSION: No acute fracture. Other findings as described. Electronically signed by: Chanda Farris On 12/30/2019 11:25:08 AM
--- NOTE | 2019-12-30 11:31 | REPVR ---
PROCEDURE INFORMATION: Exam: CT Head Without Contrast Exam date and time: 12/30/2019 10:53 AM Age: 64 years old Clinical indication: Syncope and collapse TECHNIQUE: Imaging protocol: Computed tomography of the head without contrast. Radiation optimization: All CT scans at this facility use at least one of these dose optimization techniques: automated exposure control; mA and/or kV adjustment per patient size (includes targeted exams where dose is matched to clinical indication); or iterative reconstruction. COMPARISON: 1. CT Head without contrast 12/06/2018 2:31 PM 2. MRI-Brain without Contrast 12/04/2018 5:07:41 PM FINDINGS: Brain: There is no acute intracranial hemorrhage. There is lucency in the central linn and cerebral white matter, likely microvascular disease although non-specific. Rondon white differentiation is intact without evidence acute territorial infarct. There is chronic left medial occipital infarct. There are small bilateral chronic inferior cerebellar hemisphere infarcts. There are no extra-axial fluid collections. There is no mass effect or midline shift. Ventricles: The ventricles and sulci are enlarged, consistent with volume loss / atrophy. No hydrocephalus. Bones/joints: No acute fracture. Paranasal sinuses: There is no significant mucosal thickening in paranasal sinuses. No air-fluid levels. Mastoid air cells: No significant mastoid effusion. Auditory system: Opacity in left external auditory canal may be cerumen and this can be evaluated with direct visualization. Vasculature: There is vascular calcification. Soft tissues: Unremarkable as visualized. Nasopharynx: There is a calcified extra-axial lesion along the medial roof of right orbit and fovea ethmoidalis in the subfrontal region which is best seen on coronal image 203 and measures 1.6 cm x 0.8 cm. This appears unchanged in size compared to previous axial image of the prior CT measuring 1.4 cm. No coronal images were provided on prior CT. This is consistent with meningioma. IMPRESSION: 1. No evidence of acute intracranial abnormality. No evidence of acute infarction or hemorrhage. 2. Atrophy and microvascular disease. Chronic left occipital and bilateral small cerebellar infarcts. 3. Stable calcified right subfrontal meningioma. Electronically signed by: Chanda Farris On 12/30/2019 11:31:48 AM
[2019-12-30 11:38] LABS: IONIZED CALCIUM 3.7 MG/DL (4.5-5.3)
[2019-12-30 11:43] LABS: BASO # 0.1 10^3/uL (0.0-0.2); BASO % 0.6 % (0.0-1.0); EOS % 0.1 % (0.0-3.0); HEMATOCRIT 35.3 % (42.0-52.0); HEMOGLOBIN 11.6 g/dl (13.5-17.5); MEAN CORPUSCULAR HEMOGLOBIN 29.6 pg (27.0-33.0); MEAN CORPUSCULAR HGB CONC 32.9 g/dl (32.0-36.5); MEAN CORPUSCULAR VOLUME 90.1 fl (80.0-96.0); MONO # 0.6 10^3/uL (0.0-0.8); MONO % 5.5 % (0.0-5.0); PLATELET COUNT, AUTOMATED 303 10^3/uL (150-450); RED BLOOD COUNT 3.92 10^6/uL (4.30-6.10); WHITE BLOOD COUNT 10.7 10^3/uL (4.0-10.0)
--- NOTE | 2019-12-30 12:06 | REPVR ---
PROCEDURE INFORMATION: Exam: XR Chest, 1 View Exam date and time: 12/30/2019 11:47 AM Age: 64 years old Clinical indication: Shortness of breath; Additional info: Chest pain TECHNIQUE: Imaging protocol: XR of the chest Views: 1 view. COMPARISON: CR Abdomen,Flat Upright,PA CHEST 12/18/2019 12:22 PM FINDINGS: Lungs: No consolidation. Pleural space: No significant visible pleural effusion. No pneumothorax. Heart/Mediastinum: Stable cardiac silhouette which is upper limits normal. Aorta is calcified and unfolded. Bones/joints: No acute finding. Spondylosis. Soft tissues: There are surgical clips in right axillary region and right neck. IMPRESSION: No acute cardiopulmonary finding. Electronically signed by: Chanda Farris On 12/30/2019 12:06:02 PM
[2019-12-30 12:13] LABS: INR 1.06; PARTIAL THROMBOPLASTIN TIME 22.4 SECONDS (25.0-38.4)
[2019-12-30 12:23] LABS: ERYTHROCYTE SEDIMENTATION RATE 8 mm/hr (0-20)
[2019-12-30 12:44] LABS: ALBUMIN 2.9 GM/DL (3.2-5.2); ALT/SGPT 25 U/L (12-78); BILIRUBIN,DIRECT 0.2 MG/DL (0.0-0.2); BILIRUBIN,TOTAL 0.6 MG/DL (0.2-1.0); BLOOD UREA NITROGEN 9 MG/DL (7-18); CALCIUM LEVEL 7.4 MG/DL (8.8-10.2); CARBON DIOXIDE LEVEL 24 MEQ/L (21-32); CHLORIDE LEVEL 103 MEQ/L (98-107); CK-MB VALUE MASS 1.3 NG/ML (<3.6); CPK CREATINE PHOSPHOKINASE 61 U/L (39-308); CREATININE FOR GFR 0.87 MG/DL (0.70-1.30); FREE T4 1.65 NG/DL (0.76-1.46); GLOMERULAR FILTRATION RATE > 60.0 (>49); GLUCOSE, FASTING 239 MG/DL (70-100); LIPASE 53 U/L (73-393); MAGNESIUM LEVEL 0.3 MG/DL (1.8-2.4); MB/CK RELATIVE INDEX 2.13 (< OR =4); NT-PRO BNP 2297 PG/ML (<125); POTASSIUM SERUM 3.2 MEQ/L (3.5-5.1); SODIUM LEVEL 137 MEQ/L (136-145); THYROID STIMULATING HORMONE 0.756 uIU/ML (0.358-3.740); TOTAL PROTEIN 6.8 GM/DL (6.4-8.2); TROPONIN I < 0.02 NG/ML (< 0.10)
[2019-12-30] MEDS ORDERED: MAG SULF 1GM/100ML (MAG RUN) 1 GM in IV 1 EA IV ONE (13:15)
[2019-12-30] MEDS ORDERED: levETIRAcetam INJection 1,000 MG in D5W 100 ML IV ONE (13:15)
[2019-12-30] MEDS ORDERED: POTA20TA6 PO (13:52)
[2019-12-30] MEDS ORDERED: METO5TAB2 PO (13:52)
[2019-12-30] MEDS ORDERED: ACET1TAB55 PO (13:52)
[2019-12-30] MEDS ORDERED: BACL10TA2 PO (13:52)
[2019-12-30] MEDS ORDERED: CALCIUM CARBONATE 500 MG CHEW U/D PO ONE (16:15)
[2019-12-30] MEDS ORDERED: DEXTROSE 50% 50 ML SYRINGE IV PRN (17:00)
[2019-12-30] MEDS ORDERED: GLUCOSE 4GM CHEW TABLET PO PRN (17:00)
[2019-12-30] MEDS ORDERED: ACETAMINOPHEN TAB 650MG DOSE (2X325MG) PO PRN (17:00)
[2019-12-30] MEDS ORDERED: BACLOFEN 5MG PER 1/2 TABLET PO PRN (17:00)
[2019-12-30] MEDS ORDERED: METOCLOPRAMIDE 5 MG TAB PO PRN (17:00)
[2019-12-30] MEDS ORDERED: GLUCAGON INJ 1MG VIAL SC PRN (17:00)
[2019-12-30] MEDS ORDERED: metFORMIN (GLUCOPHAGE) 500 MG TAB PO SCH (18:00)
[2019-12-30] MEDS: HumaLOG INSULIN (NovoLOG) PER UNIT SC SCH (18:00)
--- NOTE | 2019-12-30 18:41 | HPEPDOC ---
[facility] Medical History & Physical Date of Admission Dec 30, 2019 Date of Service: Dec 30, 2019 Primary Care Physician: BRETT CARSON MD [facility] Other Provider Dr Brando Younger Attending Physician: TANVI AVELAR MD History and Physical CHIEF COMPLAINT: Generalized fatigue and shakiness HISTORY OF PRESENT ILLNESS: Patient is a 64-year-old male with prior history of factor V Leyden mutation, cerebrovascular accident, coronary artery disease status post stents, peripheral arterial disease , previous history of left middle cerebral artery (MCA) stroke-status post tPA , was brought to the emergency department by the EMS with chief complaint of generalized fatigue and whole-body shakiness , lethargy since this morning after he bent to take a shower. The patient was apparently all right before November 16 when he had a stroke and fell and broke his hip for which he underwent surgery at [facility] and was hospitalized for over a week. Since then he has been recovering slowly, been able to come back to his baseline but has been having recurrent diarrhea, recurrent nausea and loss of bowel and bladder control with generalized lethargy and loss of appetite. He has lost, as per his 40 pounds since November 16 of this year. He was hospitalized 12/17/2021 [facility] for a similar presentation found to have low magnesium, low potassium and severe dehydration and treated for the same. Since his discharge last time he has continued to have diarrhea, nausea,few episodes of vomiting and loss of appetite. This time around as per the , the patient denies any fever, vomiting, abdominal pain, chest pain, cough , loss of consciousness ,slurring of speech, vision problems. She states the patient was alert oriented to time place and person right before he left for the emergency department. On arrival to the emergency department the patient was hypertensive with a blood pressure of 175/85. On getting the labs the patient was found to have a magnesium of 0.3, low calcium. Due to the suspicion of seizures the patient was given a bolus of Keppra and 1 dose of Ativan which brought the blood pressure down. The patient was then started on magnesium run and was given one bag in the ED. PAST MEDICAL HISTORY: 1. Heterozygous factor V Leiden mutation. 2. Deep vein thrombosis. 3. Cerebrovascular accident 4. Type 2 diabetes 5.grade 1 left-ventricular diastolic dysfunction 6.coronary stents for coronary artery disease 7. Coronary artery bypass graft 8.peripheral arterial disease 9.benign prostatitic hyperplasia 10.gastroesophageal reflux disease. PAST SURGICAL HISTORY: 1. CABG. 2. Right kuxqu-gqw-wadv amputation. 3. Brittany-inguinal hernia repair. 4.right carotid endarterectomy 2014 5.recent November 2019 axillary femur oral bypass surgery went hematoma following TPA at [facility] with swelling, right upper chest fluid collection, post procedural seroma SOCIAL HISTORY: Marital status: Resides in: Home with his Tobacco use: Quit since November 16 after his hospitalization ETOH: 2 beers a day Illicit drug use: None FAMILY HISTORY: Noncontributory, unknown ALLERGIES: Please see below. REVIEW OF SYSTEMS: CONSTITUTIONAL: Reports weight loss, chills, fatigue. Denies fevers,. HEENT: No runny nose or sore throat. CARDIOVASCULAR: No chest pain, palpitations shortness of breath cough. RESPIRATORY: No shortness of breath pleuritic chest pain. GASTROINTESTINAL: Reports diarrhea nausea No constipation. GENITOURINARY: No genitourinary disturbances. SKIN: Normal. MUSCULOSKELETAL: Patient has normal range of motion. NEUROLOGICAL: No paresthesias or numbness. PSYCHIATRIC: Could not evaluate. HOME MEDICATIONS: Please see below. PHYSICAL EXAMINATION: VITAL SIGNS: GENERAL APPEARANCE: The patient was sleepy had to be woken up looked upset and confused but not in acute distress. HEENT: PERR LA, no icterus nor pallor ,bilateral horizontal nystagmus present. CARDIOVASCULAR: RRR heart sounds, no murmurs or rubs heard. LUNGS: Clear to auscultation, normal breath sounds no crackles wheezes or rhonchi. ABDOMEN: Scaphoid abdomen nondistended nontender soft no organomegaly palpated ,no rash. MUSCULOSKELETAL: Patient has a below-knee amputation with a prosthetic leg on the right side Normal range of motion in all extremities EXTREMITIES: Good volume regular radial pulse palpated. NEUROLOGICAL: Good 5 x 5 motor strength in all extremities. Sensations intact. PSYCHIATRIC: Upset with a confused look. Could not assess. LABORATORY DATA: See below. IMAGING: CT head: There was no evidence of acute intracranial abnormality, no evidence of acute infarction or hemorrhage,. atrophy and microvascular disease. Chronic left occipital and bilateral small cerebellar infarcts. Stable calcified right subfrontal meningioma CT cervical spine without contrast was done showed no acute fracture. Chest x-ray: No acute cardiopulmonary finding. concerning for.: MICROBIOLOGY: Please see below. ASSESSMENT/PLAN:This is a 64-year-old male with recent left middle cerebral artery (MCA) cerebrovascular accident (CVA), status post tPA presented to the ED with chief complaint of generalized weakness and shakiness found to have bilateral horizontal nystagmus, magnesium off 0.3, low potassium. On CT head there was no evidence of acute intracranial abnormality, no evidence of acute infarction or hemorrhage,. atrophy and microvascular disease. Chronic left occipital and bilateral small cerebellar infarcts. Stable calcified right subfrontal meningioma CT cervical spine without contrast was done showed no acute fracture. Chest x-ray: No acute cardiopulmonary finding. concerning for.: . 1. Encephalopathy(toxic versus metabolicdue to continuous diarrhea): . Electrolyte monitoring -Fall precaution -Urine tox screen 2 g magnesium sulfate given at an interval of 2 hours for a total of 4 g. Repeat magnesium levels after 4 g completed. Replete calcium by calcium carbonate. Hold Lasix and gabapentin Neurology consulted. Recommendations are appreciated 2.seizure: EEG ordered to rule out seizures -Patient kept on seizure precaution -Speech therapy and swallow consulted Every 4 neuro checks Keppra 500 mg twice a day per oral started. Patient kept nothing by mouth until speech therapy gives clearance 3.stroke: CT head ruled out any hemorrhage MRI brain ordered to rule out stroke Character Doppler ultrasound ordered to rule out vascular occlusion of the car otids. -Speech therapy and swallow consulted -Patient kept on aspiration precautions Continue aspirin and clopidogrel -Continue atorvastatin 4.diarrhea: -GI panel ordered Patient's diarrhea inducing medications held like metformin, ezetimibe. 5.type 2 diabetes mellitus: Sliding scale insulin for NPO started Shift to consistent carb diet after clearance by speech therapy 6.hypertension: Continue home medication 7.history of DVT: Continue aspirin and clopidogrel. 8. Factor V LeIden deficiency: Continue holding Coumadin because of history of hematuria. 9.hyperlipidemia: Continue atorvastatin 10.benign prostatitic hyperplasia: Continue doxazosin 2 mg 11.peripheral artery disease: Continue aspirin and clopidogrel. 12.coronary artery disease status post stent: Continue aspirin and clopidogrel 13.gastroesophageal reflux disease: Continue Zantac Patient kept on GI prophylaxis. 14.Hypomagnesemia-secondary to diarrhea: -2 g magnesium sulfate given at an interval of 2 hours for a total of 4 g. Repeat magnesium levels after 4 g completed. 15.Hypocalcemia-secondary to diarrhea: -Ca carbonate given . DVT prophylaxis: Lovenox Disposition: Patient is kept as an observation status. Patient might need 2-3 days of admission. Vital Signs Vital Signs Date Time Temp Pulse Resp B/P (MAP) Pulse Ox O2 Delivery O2 Flow Rate FiO2 12/30/19 15:30 86 98 12/30/19 15:01 98.1 17 145/90 (108) Room Air Laboratory Data Labs 24H Laboratory Tests 2 12/30/19 11:02: Immature Granulocyte % (Auto) 0.8, Neutrophils (%) (Auto) 84.0H, Lymphocytes (%) (Auto) 9.0L, Monocytes (%) (Auto) 5.5H, Eosinophils (%) (Auto) 0.1, Basophils (%) (Auto) 0.6, Neutrophils # (Auto) 9.0H, Lymphocytes # (Auto) 1.0L, Monocytes # (Auto) 0.6, Eosinophils # (Auto) 0.0, Basophils # (Auto) 0.1, Nucleated Red Blood Cells % (auto) 0.0, Erythrocyte Sedimentation Rate 8, Prothrombin Time 14.0, Prothromb Time International Ratio 1.06, Activated Partial Thromboplast Time 22.4L, Anion Gap 10, Glomerular Filtration Rate > 60.0, Calcium Level 7.4L, Whole Blood Ionized Calcium 3.7L, Magnesium Level 0.3*L, Total Bilirubin 0.6, Direct Bilirubin 0.2, Aspartate Amino Transf (AST/SGOT) 18, Alanine Ami notransferase (ALT/SGPT) 25, Alkaline Phosphatase 77, Total Creatine Kinase 61, Creatine Kinase MB 1.3, Creatine Kinase MB Relative Index 2.13, Troponin I < 0.02, C-Reactive Protein, Quantitative 0.30, EV-Mhl-L-Type Natriuretic Peptide 2297H, Total Protein 6.8, Albumin 2.9L, Albumin/Globulin Ratio 0.7, Lipase 53L, Thyroid Stimulating Hormone (TSH) 0.756, Free Thyroxine 1.65H 12/30/19 11:12: Bedside Glucose (Misc Panel) 225H 12/30/19 11:13: POC Glucose (Misc Panel) 237H, POC Sodium (Misc Panel) 139, POC Potassium (Misc Panel) 3.2L, POC Chloride (Misc Panel) 98, POC Total CO2 (Misc Panel) 21.0L, POC Blood Urea Nitrogen (Misc Panel 8, POC Ionized Calcium (Misc Panel) 3.7L, POC Creatinine (Misc Panel) 0.6, POC Hematocrit (Misc Panel) 39.0 CBC/BMP Laboratory Tests 12/30/19 11:02 Microbiology Microbiology 12/30/19 Blood Culture, Received Pending 12/30/19 Blood Culture, Received Pending Home Medications Scheduled Aspirin (Aspirin) 81 Mg Tab.chew, 81 MG PO DAILY Atenolol (Atenolol) 100 Mg Tablet, 100 MG PO DAILY Atorvastatin Calcium (Atorvastatin Calcium) 80 Mg Tablet, 80 MG PO QPM Calcium Carbonate (Tums) 300 Mg Tab.chew, 1 TAB PO BID Clopidogrel Bisulfate (Plavix) 75 Mg Tab, 75 MG PO QPM Doxazosin Mesylate (Doxazosin Mesylate) 2 Mg Tablet, 2 MG PO DAILY Ezetimibe (Zetia) 10 Mg Tab, 10 MG PO DAILY Furosemide (Furosemide) 20 Mg Tablet, 20 MG PO DAILY Gabapentin (Gabapentin) 600 Mg Tablet, 600 MG PO BID Levetiracetam (Keppra) 500 Mg Tablet, 500 MG PO BID Lisinopril (Lisinopril) 40 Mg Tablet, 40 MG PO QPM Magnesium Chloride (Slow-Mag) 71.5 Mg Tablet.dr, 1 TAB PO BID Metformin HCl (Metformin HCl) 500 Mg Tablet, 500 MG PO QPM Multivitamins (Thera M Plus Tablet) 1 Each Tablet, 1 TAB PO DAILY Omeprazole (Omeprazole) 40 Mg Capsule.dr, 40 MG PO DAILY Potassium Chloride (Potassium Chloride) 20 Meq Tab.er.prt, 20 MEQ PO BID Ramelteon (Rozerem) 8 Mg Tablet, 8 MG PO QHS Tamsulosin Hcl (Tamsulosin HCl) 0.4 Mg Capsule, 0.8 MG PO QPM Thiamine HCl (Thiamine HCl) 100 Mg Tablet, 100 MG PO DAILY Scheduled PRN Acetaminophen (Acetaminophen) 325 Mg Tablet, 650 MG PO Q6H PRN for PAIN Baclofen (Baclofen) 10 Mg Tablet, 5 MG PO BID PRN for MUSCLE SPASMS Metoclopramide HCl (Metoclopramide HCl) 5 Mg Tablet, 5 MG PO AC PRN for NAUSEA OR VOMITING Allergies Coded Allergies: warfarin (Verified Adverse Reaction, Intermediate, HEMATURIA, 12/30/19) Tihtqaf-Xkp-Nat Reductase Inhibitor (Verified Adverse Reaction, Mild, STOMACH UPSET, 12/30/19) caffeine (Verified Adverse Reaction, Mild, GI UPSET, 12/30/19) hydrocodone (Verified Adverse Reaction, Mild, GI UPSET, 12/30/19) varenicline (Verified Adverse Reaction, Mild, nausea, 12/30/19) duloxetine (Verified Adverse Reaction, Unknown, SEIZURE/ NAUSEA, 12/30/19) A-FIB/CHADSVASC A-FIB History Current/History of A-Fib/PAF?: No Current PO Anticoag Therapy: No Age/Risk Factor Scoring CHADSVASC: CHADSVASC Response (Comments) Value Age Risk Factor Age 65-74 years old 1 Gender Risk Factor Male 0 Hx of CHF Yes 1 Hx of HTN Yes 1 Hx of Stroke/TIA/or VTE Yes 2 Hx of Diabetes Yes 1 Hx of Vascular Disease Yes 1 Total 7 GME ATTESTATION GME ATTESTATION My faculty preceptor for this patient encounter was physically present during the encounter and was fully available. All aspects of the patient interview, examination, medical decision making process, and medical care plan development were reviewed and approved by the faculty preceptor. The faculty preceptor is aware and concurs with the plan as stated in the body of this note and will attest to such by his/her cosignature. ATTENDING NOTE Pt was seen and examined by me personally with the residents/students. Agree with the above assessment plan. Sixto Briseno MD Dec 30, 2019 17:00 TANVI AVELAR MD Jan 07, 2020 10:30
[2019-12-30 18:45] VITALS: BP 202/90
[2019-12-30 19:54] LABS: HEMOGLOBIN 9.7 g/dl (13.5-17.5); MEAN CORPUSCULAR HEMOGLOBIN 29.9 pg (27.0-33.0); MEAN CORPUSCULAR HGB CONC 33.4 g/dl (32.0-36.5); MEAN CORPUSCULAR VOLUME 89.5 fl (80.0-96.0); PLATELET COUNT, AUTOMATED 247 10^3/uL (150-450); RED BLOOD COUNT 3.24 10^6/uL (4.30-6.10); WHITE BLOOD COUNT 11.3 10^3/uL (4.0-10.0)
[2019-12-30 20:13] VITALS: BP 180/82
[2019-12-30] MEDS: MAG SULF 1GM/100ML (MAG RUN) 1 GM in IV 1 EA IV SCH ×2 (20:18→21:14)
[2019-12-30 20:24] LABS: BLOOD UREA NITROGEN 10 MG/DL (7-18); CALCIUM LEVEL 7.1 MG/DL (8.8-10.2); CARBON DIOXIDE LEVEL 23 MEQ/L (21-32); CHLORIDE LEVEL 104 MEQ/L (98-107); CREATININE FOR GFR 0.73 MG/DL (0.70-1.30); GLOMERULAR FILTRATION RATE > 60.0 (>49); GLUCOSE, FASTING 189 MG/DL (70-100); POTASSIUM SERUM 3.2 MEQ/L (3.5-5.1); SODIUM LEVEL 138 MEQ/L (136-145)
[2019-12-30 20:27] LABS: MAGNESIUM LEVEL 0.4 MG/DL (1.8-2.4); PHOSPHORUS LEVEL 2.5 MG/DL (2.5-4.9)
[2019-12-30] MEDS: levETIRAcetam 250MG TABLET (KEPPRA) PO SCH (20:57)
[2019-12-30] MEDS: CLOPIDOGREL 75 MG TAB PO SCH (20:57)
[2019-12-30] MEDS: TAMSULOSIN 0.4 MG CAP PO SCH (20:58)
[2019-12-30] MEDS: GABAPENTIN 300 MG CAP PO SCH (20:58)
[2019-12-30] MEDS: lisinopriL 40 MG TAB PO SCH (20:59)
[2019-12-30] MEDS: ATORVASTATIN 20 MG TAB PO SCH (20:59)
[2019-12-30] MEDS: RAMELTEON 8 MG TAB (ROZEREM) PO SCH (20:59)
[2019-12-30] MEDS: POTASSIUM CHLORIDE 10 MEQ SR TABLET PO SCH (20:59)
[2019-12-30 21:15] VITALS: BP 144/72
[2019-12-30] MEDS ORDERED: ISOVUE-370 76% 100ML VIAL As Ordered ONE (21:27)
--- NOTE | 2019-12-30 23:08 | REPVR ---
PROCEDURE INFORMATION: Exam: CT Angiography Head With Contrast Exam date and time: 12/30/2019 10:45 PM Age: 64 years old Clinical indication: Other: Stroke like symptoms TECHNIQUE: Imaging protocol: Computed tomography angiography of the head with intravenous contrast. 3D rendering (Not supervised by radiologist): MIP and/or 3D reconstructed images were created by the technologist. Radiation optimization: All CT scans at this facility use at least one of these dose optimization techniques: automated exposure control; mA and/or kV adjustment per patient size (includes targeted exams where dose is matched to clinical indication); or iterative reconstruction. Contrast material: ISOVUE 370; Contrast volume: 100 ml; Contrast route: INTRAVENOUS (IV); COMPARISON: CT Head without contrast 12/30/2019 10:53 AM FINDINGS: ANTERIOR CIRCULATION: Right internal carotid artery: Calcified plaque causes moderate to severe stenosis of the right intracranial ICA. Right middle cerebral artery: Unremarkable. No occlusion or significant stenosis. No aneurysm. Right anterior cerebral artery: Unremarkable. No occlusion or significant stenosis. No aneurysm. Left internal carotid artery: Calcified plaque causes moderate to severe stenosis of the left intracranial ICA. Left middle cerebral artery: Unremarkable. No occlusion or significant stenosis. No aneurysm. Left anterior cerebral artery: Unremarkable. No occlusion or significant stenosis. No aneurysm. POSTERIOR CIRCULATION: Right vertebral artery: Calcified plaque causes severe stenosis of the right vertebral artery at the level of skull base. Left vertebral artery: Calcified plaque causes severe stenosis of the left vertebral artery at the level of the skull base. Basilar artery: Unremarkable. No occlusion or significant stenosis. No aneurysm. Right posterior cerebral artery: Unremarkable. No occlusion or significant stenosis. No aneurysm. Left posterior cerebral artery: Unremarkable. No occlusion or significant stenosis. No aneurysm. IMPRESSION: 1. Moderate to severe stenosis of the intracranial ICAs bilaterally. 2. Severe stenosis of the vertebral arteries bilaterally at the level of the skull base. Electronically signed by: Christie Berkowitz On 12/30/2019 23:07:47 PM
[2019-12-31] VITALS: BP 128/90
[2019-12-31] MEDS: MAG SULF 1GM/100ML (MAG RUN) 1 GM in IV 1 EA IV SCH ×4 (00:39→22:47)
[2019-12-31 04:04] VITALS: BP 120/62
[2019-12-31 05:21] LABS: HEMATOCRIT 28.2 % (42.0-52.0); HEMOGLOBIN 9.5 g/dl (13.5-17.5); MEAN CORPUSCULAR HEMOGLOBIN 30.3 pg (27.0-33.0); MEAN CORPUSCULAR HGB CONC 33.7 g/dl (32.0-36.5); MEAN CORPUSCULAR VOLUME 89.8 fl (80.0-96.0); PLATELET COUNT, AUTOMATED 229 10^3/uL (150-450); RED BLOOD COUNT 3.14 10^6/uL (4.30-6.10); WHITE BLOOD COUNT 8.3 10^3/uL (4.0-10.0)
[2019-12-31 05:57] LABS: BLOOD UREA NITROGEN 9 MG/DL (7-18); CALCIUM LEVEL 7.1 MG/DL (8.8-10.2); CARBON DIOXIDE LEVEL 25 MEQ/L (21-32); CHLORIDE LEVEL 103 MEQ/L (98-107); CREATININE FOR GFR 0.55 MG/DL (0.70-1.30); GLOMERULAR FILTRATION RATE > 60.0 (>49); GLUCOSE, FASTING 180 MG/DL (70-100); MAGNESIUM LEVEL 1.7 MG/DL (1.8-2.4); POTASSIUM SERUM 2.5 MEQ/L (3.5-5.1); SODIUM LEVEL 134 MEQ/L (136-145)
[2019-12-31] MEDS: HumaLOG INSULIN (NovoLOG) PER UNIT SC SCH ×5 (06:00→21:00)
[2019-12-31] MEDS: KCL 10MEQ/100ML SWI (KRUN) 10 MEQ in IV 1 EA IV SCH ×2 (06:13→07:37)
[2019-12-31] MEDS ORDERED: POTASSIUM CHLORIDE 10 MEQ SR TABLET PO ONE ×2 (06:15→09:00)
[2019-12-31 08:00] VITALS: BP 134/78
[2019-12-31] MEDS: GABAPENTIN 300 MG CAP PO SCH ×2 (08:28→20:32)
[2019-12-31] MEDS: ASPIRIN 81 MG CHEW TABLET PO SCH (08:28)
[2019-12-31] MEDS: levETIRAcetam 250MG TABLET (KEPPRA) PO SCH ×2 (08:28→20:32)
[2019-12-31] MEDS: FUROSEMIDE 20 MG TAB PO SCH (08:28)
[2019-12-31] MEDS: POTASSIUM CHLORIDE 10 MEQ SR TABLET PO SCH ×2 (08:29→21:00)
[2019-12-31] MEDS: THIAMINE 100 MG TAB PO SCH (08:29)
[2019-12-31] MEDS: OMEPRAZOLE 20 MG CAP PO SCH (08:30)
[2019-12-31] MEDS: MULTIVITAMINS/MINERALS THERAP 1 TAB PO SCH (08:30)
[2019-12-31] MEDS: ENOXAPARIN 30MG/0.3ML SYRINGE (J1650 PER 10MG) SC SCH (08:32)
[2019-12-31] MEDS: DOXAZOSIN MESYLATE 1 MG TAB PO SCH (08:32)
[2019-12-31] MEDS: atenoloL 50 MG TAB PO SCH (08:32)
[2019-12-31] MEDS ORDERED: GLUCAGON INJ 1MG VIAL SC PRN (11:15)
[2019-12-31] MEDS ORDERED: DEXTROSE 50% 50 ML SYRINGE IV PRN (11:15)
[2019-12-31] MEDS ORDERED: GLUCOSE 4GM CHEW TABLET PO PRN (11:15)
--- NOTE | 2019-12-31 11:30 | REPVR ---
Arterial ultrasound of the extracerebral carotid and vertebral arteries Clinical indication: Other: Suspicion of storke; Additional info: Suspicion of stroke Technique: Real-time ultrasound with orellana scale, duplex Doppler, and color flow imaging was performed to evaluate the extracerebral carotid and vertebral arteries. No prior vascular imaging studies are available for correlation at the time of dictation. Findings: Evaluation is somewhat limited due to patient noncompliance. Moderate mixed echogenic plaque formation is identified in the visualized carotid arteries. There is normal antegrade flow within the vertebral arteries bilaterally. The peak systolic velocity measurements within the right and left internal carotid arteries are 51 and 54 cm per second respectively. The right systolic velocity ratio is 0.95, while the left systolic velocity ratio is 0.86. These values are well within normal limits. When correlating with NASCET index criteria, no hemodynamically significant ICA stenosis is present. Impression: 1. Moderate plaque formation within the carotid arteries, without hemodynamically significant ICA stensosis. 2. Normal antegradew flow within the vertebral arteries. Electronically signed by: Cricket Chavarria On 12/31/2019 11:30:25 AM
[2019-12-31 20:00] VITALS: BP 107/58
[2019-12-31 20:28] LABS: MAGNESIUM LEVEL 1.5 MG/DL (1.8-2.4)
[2019-12-31] MEDS: ATORVASTATIN 20 MG TAB PO SCH (20:31)
[2019-12-31] MEDS: lisinopriL 40 MG TAB PO SCH (20:32)
[2019-12-31] MEDS: RAMELTEON 8 MG TAB (ROZEREM) PO SCH (20:32)
[2019-12-31] MEDS: CLOPIDOGREL 75 MG TAB PO SCH (20:32)
[2019-12-31] MEDS: TAMSULOSIN 0.4 MG CAP PO SCH (20:33)
[2019-12-31] MEDS ORDERED: POTASSIUM CHLORIDE 10% LIQ 20 MEQ/15 ML UDC PO ONE (21:30)
[2019-12-31 21:41] LABS: POTASSIUM SERUM 3.7 MEQ/L (3.5-5.1)
[2020-01-01] VITALS: BP 128/75
[2020-01-01 06:12] LABS: HEMATOCRIT 29.1 % (42.0-52.0); HEMOGLOBIN 9.4 g/dl (13.5-17.5); MEAN CORPUSCULAR HEMOGLOBIN 29.5 pg (27.0-33.0); MEAN CORPUSCULAR HGB CONC 32.3 g/dl (32.0-36.5); MEAN CORPUSCULAR VOLUME 91.2 fl (80.0-96.0); PLATELET COUNT, AUTOMATED 234 10^3/uL (150-450); RED BLOOD COUNT 3.19 10^6/uL (4.30-6.10)
[2020-01-01 06:31] LABS: BLOOD UREA NITROGEN 11 MG/DL (7-18); CALCIUM LEVEL 7.7 MG/DL (8.8-10.2); CARBON DIOXIDE LEVEL 24 MEQ/L (21-32); CHLORIDE LEVEL 108 MEQ/L (98-107); GLOMERULAR FILTRATION RATE > 60.0 (>49); GLUCOSE, FASTING 149 MG/DL (70-100); POTASSIUM SERUM 4.2 MEQ/L (3.5-5.1); SODIUM LEVEL 138 MEQ/L (136-145)
[2020-01-01] MEDS ORDERED: KEPP1TAB PO (07:54)
[2020-01-01] MEDS ORDERED: TUMS750C5 PO (07:55)
[2020-01-01] MEDS ORDERED: SLOWTAB2 PO (07:55)
[2020-01-01 08:00] VITALS: BP 145/86
[2020-01-01] MEDS: MULTIVITAMINS/MINERALS THERAP 1 TAB PO SCH (08:25)
[2020-01-01] MEDS: POTASSIUM CHLORIDE 10 MEQ SR TABLET PO SCH ×2 (08:25→20:45)
[2020-01-01] MEDS: FUROSEMIDE 20 MG TAB PO SCH (08:25)
[2020-01-01] MEDS: ASPIRIN 81 MG CHEW TABLET PO SCH (08:25)
[2020-01-01] MEDS: OMEPRAZOLE 20 MG CAP PO SCH (08:25)
[2020-01-01] MEDS: levETIRAcetam 250MG TABLET (KEPPRA) PO SCH ×2 (08:25→20:45)
[2020-01-01] MEDS: atenoloL 50 MG TAB PO SCH (08:26)
[2020-01-01] MEDS: THIAMINE 100 MG TAB PO SCH (08:26)
[2020-01-01] MEDS: GABAPENTIN 300 MG CAP PO SCH ×2 (08:26→20:45)
[2020-01-01] MEDS: ENOXAPARIN 30MG/0.3ML SYRINGE (J1650 PER 10MG) SC SCH (08:27)
[2020-01-01] MEDS: DOXAZOSIN MESYLATE 1 MG TAB PO SCH (08:27)
[2020-01-01] MEDS: HumaLOG INSULIN (NovoLOG) PER UNIT SC SCH ×4 (08:27→20:30)
[2020-01-01 08:37] LABS: CHOLESTEROL LEVEL 92 MG/DL (<200); CHOLESTEROL RISK RATIO 2.139 (<5); HDL CHOLESTEROL 43 MG/DL (>40); LDL CHOLESTEROL 33 MG/DL (<100); MAGNESIUM LEVEL 1.9 MG/DL (1.8-2.4); NON-HDL-C 49 MG/DL; TRIGLYCERIDES LEVEL 81 MG/DL (<150)
[2020-01-01] MEDS ORDERED: MAG SULF 1GM/100ML (MAG RUN) 1 GM in IV 1 EA IV ONE (09:00)
--- NOTE | 2020-01-01 11:34 | ECGEPIP ---
[facility] - ED Test Date: 2019-12-30 Pat Name: DORI BARAJAS Department: Room: - Gender: Male Launch Leader: roman : 1955 Requested By: STERLING Fierro Order Number: [id number] Reading MD: Epifanio Jett Measurements Intervals Peterman Rate: 80 P: 72 TN: 142 QRS: -22 QRSD: 100 T: -3 QT: 387 QTc: 448 Interpretive Statements SINUS RHYTHM INFERIOR MYOCARDIAL INFARCTION, OF INDETERMINATE AGE MODERATE INTRAVENTRICULAR CONDUCTION DELAY SIMILAR TO 12/18/19 Electronically Signed on 01-01-2020 11:34:12 EDT by Epifanio Jett
[2020-01-01 14:55] VITALS: BP 132/88
[2020-01-01 18:00] VITALS: BP 130/58
[2020-01-01] MEDS: RAMELTEON 8 MG TAB (ROZEREM) PO SCH (20:44)
[2020-01-01] MEDS: lisinopriL 40 MG TAB PO SCH (20:44)
[2020-01-01] MEDS: CLOPIDOGREL 75 MG TAB PO SCH (20:45)
[2020-01-01] MEDS: ATORVASTATIN 20 MG TAB PO SCH (20:45)
[2020-01-01] MEDS: TAMSULOSIN 0.4 MG CAP PO SCH (20:46)
[2020-01-01 22:00] VITALS: BP 121/80
[2020-01-02 02:00] VITALS: BP 126/64
[2020-01-02 06:00] VITALS: BP 148/78
[2020-01-02 07:51] LABS: HEMATOCRIT 31.9 % (42.0-52.0); HEMOGLOBIN 9.9 g/dl (13.5-17.5); MEAN CORPUSCULAR HEMOGLOBIN 28.9 pg (27.0-33.0); MEAN CORPUSCULAR VOLUME 93.3 fl (80.0-96.0); PLATELET COUNT, AUTOMATED 246 10^3/uL (150-450); RED BLOOD COUNT 3.42 10^6/uL (4.30-6.10); WHITE BLOOD COUNT 6.6 10^3/uL (4.0-10.0)
[2020-01-02 08:05] LABS: BLOOD UREA NITROGEN 13 MG/DL (7-18); CARBON DIOXIDE LEVEL 23 MEQ/L (21-32); CHLORIDE LEVEL 107 MEQ/L (98-107); CREATININE FOR GFR 0.63 MG/DL (0.70-1.30); GLOMERULAR FILTRATION RATE > 60.0 (>49); GLUCOSE, FASTING 160 MG/DL (70-100); POTASSIUM SERUM 4.5 MEQ/L (3.5-5.1); SODIUM LEVEL 135 MEQ/L (136-145)
[2020-01-02 08:06] LABS: CALCIUM LEVEL 8.5 MG/DL (8.8-10.2)
[2020-01-02] MEDS: HumaLOG INSULIN (NovoLOG) PER UNIT SC SCH ×4 (08:21→21:02)
[2020-01-02] MEDS: ASPIRIN 81 MG CHEW TABLET PO SCH (08:22)
[2020-01-02] MEDS: atenoloL 50 MG TAB PO SCH (08:25)
[2020-01-02] MEDS: FUROSEMIDE 20 MG TAB PO SCH (08:26)
[2020-01-02] MEDS: THIAMINE 100 MG TAB PO SCH (08:27)
[2020-01-02] MEDS: MULTIVITAMINS/MINERALS THERAP 1 TAB PO SCH (08:27)
[2020-01-02] MEDS: levETIRAcetam 250MG TABLET (KEPPRA) PO SCH ×2 (08:27→20:31)
[2020-01-02] MEDS: GABAPENTIN 300 MG CAP PO SCH ×2 (08:27→20:29)
[2020-01-02] MEDS: ENOXAPARIN 30MG/0.3ML SYRINGE (J1650 PER 10MG) SC SCH (08:27)
[2020-01-02] MEDS: OMEPRAZOLE 20 MG CAP PO SCH (08:27)
[2020-01-02] MEDS: POTASSIUM CHLORIDE 10 MEQ SR TABLET PO SCH ×2 (08:28→20:31)
[2020-01-02] MEDS: DOXAZOSIN MESYLATE 1 MG TAB PO SCH (08:28)
[2020-01-02 10:00] VITALS: BP 135/63
[2020-01-02 14:00] VITALS: BP 130/63
[2020-01-02 18:00] VITALS: BP 133/66
[2020-01-02] MEDS: CLOPIDOGREL 75 MG TAB PO SCH (20:29)
[2020-01-02] MEDS: lisinopriL 40 MG TAB PO SCH (20:31)
[2020-01-02] MEDS: ATORVASTATIN 20 MG TAB PO SCH (20:31)
[2020-01-02] MEDS: RAMELTEON 8 MG TAB (ROZEREM) PO SCH (20:31)
[2020-01-02] MEDS: TAMSULOSIN 0.4 MG CAP PO SCH (20:31)
[2020-01-02 22:00] VITALS: BP 138/72
[2020-01-03 06:00] VITALS: BP 124/60
[2020-01-03 06:02] LABS: HEMATOCRIT 30.3 % (42.0-52.0); HEMOGLOBIN 9.6 g/dl (13.5-17.5); MEAN CORPUSCULAR HEMOGLOBIN 29.3 pg (27.0-33.0); MEAN CORPUSCULAR HGB CONC 31.7 g/dl (32.0-36.5); MEAN CORPUSCULAR VOLUME 92.4 fl (80.0-96.0); PLATELET COUNT, AUTOMATED 240 10^3/uL (150-450); RED BLOOD COUNT 3.28 10^6/uL (4.30-6.10); WHITE BLOOD COUNT 6.8 10^3/uL (4.0-10.0)
[2020-01-03 06:14] LABS: BLOOD UREA NITROGEN 12 MG/DL (7-18); CALCIUM LEVEL 8.7 MG/DL (8.8-10.2); CARBON DIOXIDE LEVEL 23 MEQ/L (21-32); CHLORIDE LEVEL 108 MEQ/L (98-107); CREATININE FOR GFR 0.61 MG/DL (0.70-1.30); GLOMERULAR FILTRATION RATE > 60.0 (>49); GLUCOSE, FASTING 131 MG/DL (70-100); POTASSIUM SERUM 4.5 MEQ/L (3.5-5.1); SODIUM LEVEL 136 MEQ/L (136-145)
[2020-01-03] MEDS: HumaLOG INSULIN (NovoLOG) PER UNIT SC SCH (08:44)
[2020-01-03] MEDS: FUROSEMIDE 20 MG TAB PO SCH (08:45)
[2020-01-03] MEDS: ENOXAPARIN 30MG/0.3ML SYRINGE (J1650 PER 10MG) SC SCH (08:45)
[2020-01-03] MEDS: MULTIVITAMINS/MINERALS THERAP 1 TAB PO SCH (08:45)
[2020-01-03] MEDS: POTASSIUM CHLORIDE 10 MEQ SR TABLET PO SCH (08:45)
[2020-01-03] MEDS: THIAMINE 100 MG TAB PO SCH (08:46)
[2020-01-03] MEDS: GABAPENTIN 300 MG CAP PO SCH (08:46)
[2020-01-03] MEDS: OMEPRAZOLE 20 MG CAP PO SCH (08:46)
[2020-01-03] MEDS: levETIRAcetam 250MG TABLET (KEPPRA) PO SCH (08:46)
[2020-01-03] MEDS: ASPIRIN 81 MG CHEW TABLET PO SCH (08:48)
[2020-01-03] MEDS: DOXAZOSIN MESYLATE 1 MG TAB PO SCH (08:48)
[2020-01-03 08:49] VITALS: BP 144/72
[2020-01-03] MEDS: atenoloL 50 MG TAB PO SCH (08:49)
--- NOTE | 2020-01-05 06:34 | EEG ---
DATE: 12/31/2019 REFERRING PHYSICIAN: Dr. Chuy Rosales DIAGNOSIS: Possible seizure EEG #: [id number] HISTORY: The patient is a 64-year-old man with history of stroke, status post TPA, who came to [facility] with generalized weakness and shaking with magnesium level 0.3 and low potassium. This electroencephalogram (EEG) was done to rule out epileptic potential. CT scan of head showed small vessel ischemic disease of brain, old lacunar strokes and right frontal meningioma, which is stable. He is currently on Keppra, magnesium, aspirin, atenolol, Lipitor, Plavix, lisinopril, omeprazole, ramelteon, thiamine, metformin. TECHNICAL DESCRIPTION: This digital electroencephalogram (EEG) was recorded by 12 scalp, ear and two electrocardiogram (EKG) electrodes and was reviewed in bipolar and referential montages following reformatting in 10-20 international electrode placement system. INTERPRETATION: The patient was noted to be in awake and drowsy state during this electroencephalogram (EEG). Resting and awake background rhythm consisted of well-formed posterior dominant rhythm with anterior/posterior gradient comprising of 10 Hz alpha activity measuring 15-40 microvolts in amplitude which was symmetric and reactive to eye opening. Attenuation of posterior dominant rhythm was seen during transition into drowsiness. Stage 1 and 2 sleep were reviewed and were symmetric bilaterally. Hyperventilation could not be performed. Photic stimulation remained unremarkable. Electrocardiogram (EKG) revealed normal sinus rhythm. No focal, lateralizing or epileptiform abnormalities were seen. P4 electrode pop artifact was noted on several occasions. No relevant clinical activity was noted. CONCLUSION: This electroencephalogram (EEG) in awake, drowsy states, stage 1 and 2 sleep is within normal limits. [facility]
--- NOTE | 2020-01-12 11:06 | IPN ---
DATE: 12/31/2019 SUBJECTIVE: The patient complains of a burning sensation up his arm through the IV while the patient is running. He otherwise denies any chest pain, pressure, tightness, lightheadedness, or dizziness. No shortness of breath. No other issues per nursing overnight. PHYSICAL EXAMINATION: VITAL SIGNS: Temperature is 98.1, pulse 89, respiratory rate 18, blood pressure 134/78, 99% on 2 liters nasal cannula. GENERAL: Patient is awake, alert and oriented to himself. No facial asymmetry. Tongue is midline. No conversational dyspnea. NECK: No JVD or thyromegaly. LUNGS: Clear to auscultation. No wheezes, rales or rhonchi. HEART: S1 and S2, sinus rhythm. No murmurs, rubs or gallops. ABDOMEN: Soft, nontender and nondistended. Positive bowel sounds. No hepatosplenomegaly. EXTREMITIES: Below the knee amputation on the right. No cyanosis or clubbing. LABORATORY DATA: White count 8.3, hemoglobin 9.5, hematocrit 28.2, platelet count 229, sodium 134, potassium 2.5, chloride 103, bicarbonate 25, BUN is 9, creatinine is 0.55, glucose 180, magnesium of 1.7. IMAGING STUDIES: CTA on 12/30/2019: Moderate to severe stenosis of intracranial ICA bilaterally, severe stenosis of vertebral artery bilaterally at the level of the skull base. Chest x-ray on 12/30/2019: No acute cardiopulmonary findings. Cervical spine CT: No acute fracture. ASSESSMENT AND PLAN: This is a 64-year-old male with recent left MCA CVA who was in acute rehabilitation, admitted in early December with diarrhea, electrolyte abnormalities, hypertensive urgency, was found to have severe internal carotid artery stenosis and was discharged home after electrolyte abnormalities and diarrhea had subsided. He re-presented to the Emergency Room and admitted on 12/29 with generalized weakness and shakiness, bilateral horizontal nystagmus, electrolyte abnormalities with low magnesium and low potassium. IMPRESSION: 1. Acute metabolic encephalopathy secondary to electrolyte disturbance and chronic internal carotid artery stenosis. The patients Lasix as held. Neurology was consulted. The patient was given two grams of magnesium and potassium supplementation with q. 4 hourly checks. Telemetry showed PVCs. 2. Generalized weakness and shakiness, rule out seizure. EEG was ordered. Neuro checks. Patient was kept on Keppra 500 mg b.i.d. Speech Therapy had recommended regular level for diet. 3. History of CVA of left MCA with bilateral internal carotid artery occlusion, severe. Patient is continued on aspirin, Plavix, and atorvastatin. Was referred to neurosurgery as an outpatient for further evaluation and management. 4. Chronic diarrhea. Patient with significant electrolyte abnormalities. Ezetimibe and Metformin had been held. 5. Type 2 diabetes, restarted on consistent carbohydrate diet, insulin sliding scale. 6. Hypertension, resume home medications. 7. History of DVT. Factor V Leiden mutation. Patients coumadin had been held due to previously hematuria, currently just on aspirin and Plavix. 8. Hyperlipidemia, on atorvastatin. 9. BPH, on Doxazocin, monitor for orthostasis. 10. Reflux, on Zantac. 11. DVT prophylaxis, on Lovenox. 12. Disposition: Await EEG, neuro consult, PT home safety evaluation, AR referral. LEIDY
--- NOTE | 2020-01-12 11:10 | IPN ---
DATE: 01/02/2020 SUBJECTIVE: Patient complained of diarrhea this morning, watery, non-bloody, non-mucousy. No fever or chills, nausea or vomiting. He is tolerating his diet. Patient has been evaluated by physical therapy and is too weak to be discharged home. His electrolyte abnormalities have normalized. Patient had no CT evidence of acute CVA. He has confirmed severe stenosis in the internal carotid arteries that has been shown on previous imaging and unchanged on 12/30/2019 CT angio. PHYSICAL EXAMINATION: VITALS: Temperature 97.9, pulse 74, respiratory rate 18, blood pressure 148/79, 100% on room air. GENERAL: Patient is awake, alert and oriented x3. Answering questions appropriately. LUNGS: Clear to auscultation. No wheezing, rales or rhonchi. HEART: S1, S2, sinus rhythm. ABDOMEN: Soft, nontender, non-distended. Positive bowel sounds. EXTREMITIES: Patient has a right AKA. Left lower extremity has no pitting edema. SKIN: With seroma on the chest up around the clavicular area, nontender, non- erythematous mobile. LABORATORY DATA: White count 6.6, hemoglobin 9.9, hematocrit 31, platelet count 246,000. Sodium 135, potassium 4.5, chloride 107, bicarb 23, BUN 13, creatinine 0.63, glucose 160. Blood cultures negative. IMAGING STUDIES: CT angio head; calcific plaques causes moderate to severe stenosis left intracranial ICA. No occlusion or significant stenosis, left MCA. Patient has moderate to severe stenosis of the intracranial ICA bilaterally and severe stenosis of the vertebral arteries bilaterally at the level of the skull base. CT of the head; no acute CVA. Calcified right subfrontal meningioma. ASSESSMENT AND PLAN: This is a 64-year-old male recently discharged from the hospital in early December due to nausea, vomiting and diarrhea which abated and passed home safety evaluation, who presents with generalized weakness and shakiness again and was found to be hypertensive with pressure of 175/85 with electrolyte abnormalities due to suspicion of seizure activity. He was given a dose of Keppra and Ativan. EEG is still pending. CTA of the head shows no acute CVA. IMPRESSION: 1. Acute metabolic encephalopathy due to electrolyte imbalance. 2. Chronic diarrhea. 3. Questionable seizure activity. 4. Prior history of CVA. 5. Type 2 diabetes. 6. Hypertension. 7. Bilateral intracranial stenosis, chronic history of DVT on chronic aspirin and Plavix. 8. History of Factor V Leiden deficiency. 9. Dyslipidemia. 10. BPH. 11. Severe peripheral arterial disease with bilateral internal carotid artery occlusion. 12. Electrolyte abnormalities with hypokalemia, hypomagnesemia and hypocalcemia. PLAN: Patient has not passed home safety evaluation for safe discharge home. Workup is negative so far. He is still on Keppra. EEG is pending. CTA of the head shows no acute CVA. CTA of the head shows chronic bilateral intracranial stenosis, which will need neurosurgical referral as an outpatient. Continue on medical treatment, aspirin and Plavix. Awaiting PT clearance. Resumed on all home medications. Monitor for worsening diarrhea. Anti-motility drug once confirmed that this is not an acute infection or C. diff that needs to be treated. MTDD
--- NOTE | 2020-01-12 11:12 | IPN ---
DATE: 01/03/2020 SUBJECTIVE: The patient had one episode of diarrhea yesterday but he flushed it without obtaining a sample. No recurrent episodes of diarrhea. Has not passed home safety evaluation. No neurological issues. PHYSICAL EXAMINATION: VITAL SIGNS: Temperature 97.6, pulse 76, respiratory rate 16, blood pressure 124/60, 99% on room air. GENERAL: Awake, alert and oriented to person, place and time. Answering questions appropriately. LUNGS: Clear to auscultation. No wheezing or rales. HEART: S1 and S2 sinus rhythm. ABDOMEN: Soft, nontender and nondistended. EXTREMITIES: Patient has a right BKA. No edema on the left. ASSESSMENT AND PLAN: This is a 64-year-old with a history of recent left MCA CVA status post TPA complicated by axillary bypass surgery with hematoma following TPA with right upper chest fluid collection with postprocedural seroma, was in acute rehab and discharged home, presented early in December with diarrhea, electrolytes were supplemented, passed home safety evaluation and discharged home, re-presents this time with confusion with questionable seizure activity. CTA of the head shows chronic bilateral internal carotid stenosis. CT of the head had no acute CVA. Patients electrolytes were supplemented. ACUTE ISSUES: 1. Acute metabolic encephalopathy secondary to diarrhea and electrolyte abnormalities. 2. Hypokalemia, hypomagnesemia. 3. Chronic diarrhea. 4. Questionable seizure activity. EEG pending. CT of head: No acute CVA. CTA shows bilateral internal carotid artery stenosis. 5. Bilateral carotid artery stenosis with recent history of stroke status post TPA at [facility]. 6. Seroma of the right anterior chest, no signs of infection. 7. Hypertension. 8. History of DVT, only on aspirin and Plavix. Factor V Leiden mutation, held coumadin due to hematuria. 9. Hyperlipidemia, on chronic atorvastatin. 10. Peripheral arterial disease, on aspirin and Plavix. 11. Reflux on Zantac. PLAN: Patient is continued on PT and ARU evaluation. At this time he is medically stable. He will need referral to Neurosurgery for bilateral internal carotid artery stenosis which is severe. He is continued on all of his home medications; aspirin, atenolol, doxazocin, Lasix, multivitamin, Prilosec, thiamine, on DVT prophylaxis with Lovenox. Continued on Keppra. Await EEG today. [facility]
--- NOTE | 2020-01-14 10:57 | CR ---
DATE OF CONSULTATION: 12/31/2019 REFERRING PHYSICIAN: Rajani Kidd MD REASON FOR CONSULTATION: Generalized fatigue and shakiness. HISTORY OF PRESENT ILLNESS: Khang Chawla is a 64-year-old man with history of Factor V Leiden heterozygous mutation, cerebrovascular accident status post TPA, coronary artery disease, hematuria when he took Coumadin in past, and now has been taking aspirin and Plavix . He came back to [facility] with chief complaint of generalized fatigue, whole body shakiness, lethargy since the morning of admission. He went to take a shower and felt these symptoms. He had fallen and had fracture of the head requiring surgery at [facility] in [place]. He had recurrent diarrhea with nausea, loss of bowel and bladder control with lethargy and loss of appetite. He has lost 40 pounds since 11/17/2019. He continued to have diarrhea, nausea, episodes of vomiting, and loss of appetite. Upon arrival in the emergency department, his blood pressure was noted to be 175/85, magnesium was 0.3 with low calcium and potassium. There was concern for a seizure and patient was given 1 mg of Ativan and Keppra. DIAGNOSTIC STUDIES: CT scan of head showed small vessel ischemic disease of brain and old lacunar strokes with stable right orbital/frontal meningioma 1.4 cm in size. Carotid ultrasound showed moderate bilateral internal carotid artery stenosis. CTA of head showed bilateral internal carotid artery moderate stenosis and severe vertebral artery stenosis. Magnesium level was 0.3 and increased to 1.7. Potassium level was 3.2 and decreased to 2.5. Hemoglobin was 9.2. PAST MEDICAL HISTORY: Factor V Leiden heterozygous mutation, deep venous thrombosis (DVT), stroke, type 2 diabetes, coronary artery disease status post bypass and stents, peripheral arterial disease, prostate enlargement, acid reflux, right leg above-knee amputation, inguinal hernia repair, right carotid endarterectomy in 2015, femoral arterial bypass. SOCIAL HISTORY: He is and lives with his . He quit smoking in November 2019. He drinks two beers a day. He denies illicit drugs. FAMILY HISTORY: Noncontributory. REVIEW OF SYSTEMS: All systems are reviewed and found to be noncontributory except as mentioned in history of present illness. ALLERGIES: COUMADIN, STATINS, HYDROCODONE, CYMBALTA, VARENICLINE, caffeine. HOME MEDICATIONS: - aspirin 81 mg by mouth daily - atenolol 100 mg by mouth daily - atorvastatin 80 mg by mouth daily - Plavix 75 mg by mouth daily - doxazosin 2 mg by mouth daily - Zetia 10 mg by mouth daily - Lasix 20 mg by mouth daily - gabapentin 600 mg by mouth twice a day - lisinopril 40 mg by mouth daily - metformin 500 mg by mouth once a day - multivitamin one tablet by mouth daily - omeprazole 40 mg by mouth daily - potassium chloride 20 mEq by mouth twice a day - ramelteon 8 mg by mouth daily - Flomax 0.4 mg by mouth daily - thiamine 100 mg by mouth daily PHYSICAL EXAMINATION: Heart: Regular rate and rhythm. Lungs: Clear to auscultation. Abdomen: Soft, nontender, nondistended. Vital signs are stable. No pedal edema. Patient is awake, alert, oriented to place, person, and time. Normal speech, comprehension, and repetition. Extraocular muscles are intact. No facial weakness. Tongue and uvula are midline. 5/5 strength in all four extremities. Deep tendon reflexes are 1+ throughout. He has decreased cold, pinprick, vibration sensation in his left foot. He is status post right above-knee amputation. Gait was not tested. No dysmetria. ASSESSMENT: 1. Episode of lethargy and whole body shakiness of unclear etiology. 2. There is concern for seizure and stroke. 3. Hypomagnesemia likely caused by diarrhea, vomiting, and poor appetite. 4. History of lacunar stroke and small vessel ischemic disease of brain. 5. Moderate bilateral internal carotid artery and severe vertebral artery stenosis. 6. Factor V Leiden heterozygous mutation with history of hematuria when patient used Coumadin a few years ago. PLAN: 1. MRI brain. 2. EEG. 3. Continue aspirin 81 mg by mouth daily and Plavix 75 mg by mouth daily and Lipitor 80 mg by mouth daily. 4. Physical and occupational therapy. 5. Treatment of electrolyte abnormalities per internal medicine. [facility]
--- NOTE | 2020-01-17 13:04 | DS ---
DATE OF ADMISSION: 12/30/2019 DATE OF DISCHARGE: 01/03/2020 PRIMARY DISCHARGE DIAGNOSES: * Acute metabolic encephalopathy due to electrolyte imbalance. * Electrolyte imbalance with hypokalemia, hypomagnesemia, and hypocalcemia secondary to diarrhea. * Diarrhea, resolved. * Chronic bilateral internal carotid artery stenosis, severe. * History of Factor V Leiden mutation. * CVA. * CAD with stent. * Peripheral arterial disease. * Left MCA CVA status post TPA with axillofemoral bypass complicated by hematoma in right upper chest, postprocedural seroma. * Right [id number] amputation. * Grade 1 left ventricular diastolic dysfunction. * History of DVT and Factor V Leiden. * Type 2 diabetes. * Benign prostatic hypertrophy. * Reflux disease. DISCHARGE MEDICATIONS: * Calcium one tab p.o. b.i.d. * Keppra 500 b.i.d. * SlowMag one tab p.o. b.i.d. * Acetaminophen 650 q.6. * Aspirin 81 daily. * Tylenol 100 daily. * Atorvastatin 80 q.p.m. * Baclofen 5 b.i.d. as needed. * Plavix 75 daily. * Doxazosin 2 mg daily. * Zetia 10 daily. * Lasix 20 daily. * Gabapentin 600 b.i.d. * Lisinopril 40 q.p.m. * Metformin 500 q.p.m. * Reglan 5 q.a.c. as needed. * Multivitamin one tab daily. * Prilosec 40 daily. * Potassium 20 mEq b.i.d. * Ramelteon 8 mg q.h.s. * Tamsulosin 0.8 q.p.m. * Thiamine 100 daily. DISCHARGE INSTRUCTIONS: Patient is to follow up with Dr. Palacios, [facility], for carotid stenosis. Dr. Palacios to refer the patient to neurosurgery for the internal carotid artery stenosis which is severe. HOSPITAL COURSE: This is a 64-year-old male recently discharged from the hospital in early December when he presented with chronic diarrhea which abated in the hospital and improved on supplementation of his electrolytes. Patient passed home safety evaluation and was discharged home. He then presented again on 12/29 with complaints of fatigue and shakiness with questionable seizure activity. Patient was found to be hypertensive, pressure 175/85, with magnesium of 0.3 and low calcium. Due to suspicion of seizures, patient was started on Keppra. EEG was ordered. CTA of the brain showed bilateral internal carotid artery stenosis which is chronic. CT of the head has no acute CVA. Patients electrolytes were repleted back to normal. One episode of diarrhea, but patient flushed the toilet and could not obtain a GI panel. Patient had no recurrent episodes of diarrhea and passed a home safety evaluation. Patient's hypertensive urgency improved on his home doses of medications. He had no other acute issues during this admission. For physical exam, labs, and imaging studies, please refer to 01/02 progress note. TIME SPENT ON DISCHARGE: Thirty minutes. MTDD
== END 2020-01-03 11:45 | disposition home or self-care (01) | DRG 640 ==
LOC: M ED 10:13 → EDBD 10:13 → M ED INP 15:29 → ENRESERV 16:17 → M PCU 19:00 → M MSPAV 01-01 14:50
PROVIDERS: ADMIT Internal Medicine; ATTEND General Practice
DX: E83.42 Hypomagnesemia (principal); G93.41 Metabolic encephalopathy; D68.2 Hereditary deficiency of other clotting factors; R56.9 Unspecified convulsions; E11.51 Type 2 diabetes mellitus with diabetic peripheral angiopathy without gangrene; R19.7 Diarrhea, unspecified; E87.6 Hypokalemia; I16.0 Hypertensive urgency; N40.0 Benign prostatic hyperplasia without lower urinary tract symptoms; K21.9 Gastro-esophageal reflux disease without esophagitis; E78.5 Hyperlipidemia, unspecified; I25.10 Atherosclerotic heart disease of native coronary artery without angina pectoris; E83.51 Hypocalcemia; Z79.899 Other long term (current) drug therapy; Z79.82 Long term (current) use of aspirin; Z88.8 Allergy status to other drugs, medicaments and biological substances; Z88.5 Allergy status to narcotic agent; I65.23 Occlusion and stenosis of bilateral carotid arteries; Z86.73 Personal history of transient ischemic attack (TIA), and cerebral infarction without residual deficits; Z89.611 Acquired absence of right leg above knee; Z95.2 Presence of prosthetic heart valve